=== PATIENT | male | born 1950 | race Caucasian/White ===

== ENCOUNTER 2018-07-07 21:10 | Observation (INO) | payer OTHER, MEDICARE ==
--- NOTE | 2018-07-07 22:13 | RAD REPORT ---
EXAM DESCRIPTION: CT - Head Brain Wo Cont - 07/07/2018 9:56 pm CLINICAL HISTORY: Syncope COMPARISON: 2007 TECHNIQUE: Computed axial tomography of the head was obtained. IV contrast was not requested. All CT scans are performed using dose optimization technique as appropriate and may include automated exposure control or mA/KV adjustment according to patient size. FINDINGS: An intracranial bleed is not seen . The ventricles are normal in caliber. No extra-axial fluid collection is noted. A vague 8 millimeter area of increased density within the r ight basal ganglia is unchanged. Fluid within the sinuses/ mastoids is not seen. IMPRESSION: Vague 8 millimeter area of increased density within the right basal ganglia unchanged f rom 2008. 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 No acute intracranial abnormality is seen. If patient's symptoms persist MRI of the brain would be r ecommended.
[2018-07-07 22:48] LABS: Absolute Monocytes 0.8 K/uL (0.1-1.3); Absolute Neutrophil 8.2 K/uL (1.8-8.0); Basophils % 0.3 % (0-1.3); Eosinophils % 1.3 % (0-4.4); Hematocrit 35.3 % (39.6-49.0); Lymphocytes % 9.3 % (15.3-44.8); MCH 33.6 pg (27.0-35.0); MCV 95.7 fL (80-100); MPV 8.5 fL (7.6-11.3); Monocytes % 8.1 % (3.3-12.3); RBC Red Blood Cell Count 3.69 M/uL (4.33-5.43)
[2018-07-07 23:09] LABS: ALT/SGPT 35 U/L (12-78); AST/SGOT 25 U/L (15-37); Albumin 3.3 g/dL (3.4-5.0); Alkaline Phosphatase 81 U/L (45-117); BUN Blood Urea Nitrogen 23 mg/dL (7-18); Bicarbonate 21 mmol/L (21-32); Bilirubin Direct 0.1 mg/dL (0-0.2); Bilirubin Total 0.5 mg/dL (0.2-1.0); Glucose Level 114 mg/dL (74-106); Magnesium 1.6 mg/dL (1.8-2.4); NT PRO-BNP 733 pg/mL (<125); Potassium 3.5 mmol/L (3.5-5.1); Protein, Total 6.3 g/dL (6.4-8.2); Sodium Level 128 mmol/L (136-145); Troponin (Emerg Dept Use Only) < 0.02 ng/mL (0.0-0.045)
[2018-07-07] MEDS ORDERED: NA CHLORIDE 0.9% 2,000 ML ONE (23:49)
[2018-07-08] MEDS ORDERED: FOLIC ACID 5 MG/ML VIAL ONE (00:06)
[2018-07-08] MEDS ORDERED: Magnesium Sulfate 2gm IVPB 2 G/50 ML BAG IV ONE (00:07)
--- NOTE | 2018-07-08 00:45 | EDPHYS ---
Physician Documentation [facility] Name: Diego Brizuela Age: 67 yrs Sex: Male : 1950 Arrival Date: 07/07/2018 Time: 21:14 Bed 18 Private MD: Mark Sharp T ED Physician Michael Cronin HPI: 07/07 21:45 This 67 yrs old Male presents to ER via EMS with complaints of dizziness. cp 21:45 The patient has experienced syncope, lost consciousness. Onset: The symptoms/episode cp began/occurred today. Duration: This was a single episode, that lasted an unknown period of time. Context: the episode(s) was witnessed, by a significant other, , occurred at home, occurred while the patient was standing, Just prior to the episode the patient experienced dizziness, lightheadedness, incontinence. Associated injury: The patient did not suffer any apparent associated injury. Associated signs and symptoms: Pertinent positives: general weakness, Pertinent negatives: abdominal pain, chest pain, headache, numbness, seizure. Current symptoms: general weakness. Historical: - Allergies: 21:23 Levaquin; jd3 - Home Meds: 21:23 Fish Oil Oral [Active]; Lipitor Oral [Active]; metoprolol tartrate 50 mg Oral tab 1 tab jd3 2 times per day [Active]; Protonix 20 mg Oral TbEC 1 tab once daily [Active]; Vitamin C Oral [Active]; Zyrtec Oral [Active]; - PMHx: 21:23 Bladder CA; Myocardial infarction; testicular CA; Hypertension; jd3 - PSHx: 21:23 Left Orichectomy; Cardiac Stent; Nephrectomy; jd3 - Immunization history:: Adult Immunizations up to date, Pneumococcal vaccine is not up to date, Flu vaccine is not up to date. It has been more than one year since last vaccine. - Social history:: Smoking status: Patient uses tobacco products, smokes one-half pack cigarettes per day. - Ebola Screening: : Patient negative for fever greater than or equal to 101.5 degrees Fahrenheit, and additional compatible Ebola Virus Disease symptoms. ROS: 21:50 Constitutional: Positive for chills, Negative for body aches, fever. cp 21:50 Eyes: Negative for injury, pain, redness, and discharge. cp 21:50 ENT: Negative for drainage from ear(s), ear pain, sore throat, difficulty swallowing, difficulty handling secretions. 21:50 Cardiovascular: Negative for chest pain, edema. 21:50 Respiratory: Negative for cough, shortness of breath, wheezing. 21:50 Abdomen/GI: Negative for abdominal pain, vomiting, diarrhea, constipation, black/tarry stool, rectal bleeding. 21:50 Back: Negative for pain at rest, pain with movement, radiated pain. 21:50 : Negative for urinary symptoms, flank pain, testicular pain 21:50 Skin: Negative for cellulitis, diaphoresis, rash. 21:50 Neuro: Positive for dizziness, syncope, general weakness, Negative for altered mental status, numbness, seizure activity. 21:50 All other systems are negative. Exam: 21:20 ECG was reviewed by the Attending Physician. cp 21:55 Constitutional: The patient appears in no acute distress, alert, awake, cp non-diaphoretic, non-toxic, well developed, well nourished. 21:55 Head/Face: Normocephalic, atraumatic. Eyes: Pupils equal round and reactive to light, cp extra-ocular motions intact. Lids and lashes normal. Conjunctiva and sclera are non-icteric and not injected. Cornea within normal limits. Periorbital areas with no swelling, redness, or edema. ENT: Nares patent. No nasal discharge, no septal abnormalities noted. Tympanic membranes are normal and external auditory canals are clear. Oropharynx with no redness, swelling, or masses, exudates, or evidence of obstruction, uvula midline. Mucous membranes moist. Neck: Trachea midline, no thyromegaly or masses palpated, and no cervical lymphadenopathy. Supple, full range of motion without nuchal rigidity, or vertebral point tenderness. No Meningismus. Chest/axilla: Normal chest wall appearance and motion. Nontender with no deformity. No lesions are appreciated. 21:55 Cardiovascular: Rate: normal, Rhythm: regular, Heart sounds: murmur, not appreciated, Edema: is not appreciated, JVD: is not appreciated. 21:55 Respiratory: the patient does not display signs of respiratory distress, Respirations: normal, no use of accessory muscles, no retractions, no splinting, no tachypnea, labored breathing, is not present, Breath sounds: are clear throughout, no decreased breath sounds, no stridor, no wheezing. 21:55 Abdomen/GI: Inspection: abdomen appears normal, Bowel sounds: active, all quadrants, Palpation: abdomen is soft and non-tender, in all quadrants, rebound tenderness, is not appreciated, voluntary guarding, is not appreciated, involuntary guarding, is not appreciated, Rectal exam: Stool: brown, guaiac negative. 21:55 Back: pain, is absent, ROM is normal. 21:55 Musculoskeletal/extremity: Exam is negative for decreased range of motion, deformity, injury. 21:55 Skin: cellulitis, is not appreciated, no rash present. 21:55 Neuro: Orientation: to person, place \T\ time. Mentation: is normal, Cerebellar function: is grossly normal, Motor: moves all fours, strength is normal, Sensation: no obvious gross deficits. Vital Signs: 21:23 BP 107 / 62; Pulse 77; Resp 22 S; Temp 97.8(O); Pulse Ox 99% on R/A; Weight 83.91 kg jd3 (R); Height 5 ft. 11 in. (180.34 cm) (R); Pain 0/10; 22:38 BP 117 / 72; Pulse 69; Resp 19 S; Pulse Ox 99% on R/A; Pain 0/10; jd3 07/08 00:10 BP 100 / 67; Pulse 94; Resp 20 S; Pulse Ox 98% on R/A; jd3 01:48 BP 116 / 66; Pulse 76; Resp 18 S; Pulse Ox 98% on R/A; jd3 07/07 21:23 Body Mass Index 25.80 (83.91 kg, 180.34 cm) jd3 MDM: 07/07 21:26 Patient medically screened. cp 22:00 Differential Diagnosis: cardiac arrhythmia, drug effect, GI bleed, idiopathic syncope, cp vasovagal episode. 07/08 00:00 Data reviewed: vital signs, nurses notes, lab test result(s), EKG, radiologic studies, cp CT scan, plain films. 00:00 Test interpretation: by ED physician or midlevel provider: ECG, plain radiologic cp studies. Counseling: I had a detailed discussion with the patient and/or guardian regarding: the historical points, exam findings, and any diagnostic results supporting the discharge/admit diagnosis, lab results, radiology results. Response to treatment: the patient's symptoms have mildly improved after treatment, and as a result, I will admit patient. 00:12 Physician consultation: Magan Wilson MD was called at 00:12, unable to leave message. 07/07 21:36 Order name: ETOH Level; Complete Time: 22:53 07/07 22:53 Interpretation: Abnormal: ETOH 42. 07/07 21:45 Order name: Basic Metabolic Panel; Complete Time: 23:22 07/07 23:22 Interpretation: Normal except: NA 128; CL 95; GLUC 114; BUN 23; CRE 2.00; GFR 34; CA cp 8.1. 07/07 21:45 Order name: CBC with Diff; Complete Time: 22:53 07/07 22:53 Interpretation: Normal except: RBC 3.69; HGB 12.4; HCT 35.3; LAURA% 81.0; LYM% 9.3; NEUT cp A 8.2. 07/07 21:45 Order name: LFT's; Complete Time: 23:22 07/07 21:45 Order name: Magnesium; Complete Time: 23:22 07/07 23:47 Interpretation: Abnormal: MG 1.6. 07/07 21:45 Order name: NT PRO-BNP; Complete Time: 23:22 07/07 21:45 Order name: PT-INR; Complete Time: 22:53 07/07 21:45 Order name: Troponin (emerg Dept Use Only); Complete Time: 23:22 07/08 00:48 Interpretation: TROPED < 0.02; Reviewed. 07/07 21:45 Order name: Blood Culture Adult (2) 07/07 21:45 Order name: Procalcitonin; Complete Time: 00:41 cp 07/07 21:45 Order name: Lactate; Complete Time: 23:22 07/07 23:23 Interpretation: Abnormal: LAC 2.3. 07/07 23:25 Order name: Urine Microscopic Only; Complete Time: 00:14 cp 07/08 00:34 Order name: Lactate; Complete Time: 00:14 jd3 07/08 01:14 Order name: Urine Dipstick--Ancillary (enter results) ds4 07/07 21:36 Order name: CT Head Brain wo Cont; Complete Time: 22:53 07/07 22:54 Interpretation: Report reviewed. 07/07 21:45 Order name: XRAY Chest (1 view); Complete Time: 00:14 07/09 00:14 Interpretation: Report review. 07/07 21:45 Order name: EKG; Complete Time: 21:46 07/07 21:45 Order name: Cardiac monitoring; Complete Time: 22:03 07/07 21:45 Order name: EKG - Nurse/Tech; Complete Time: 22:02 07/07 21:45 Order name: IV Saline Lock; Complete Time: 22:02 07/07 21:45 Order name: Labs collected and sent; Complete Time: 22:37 07/07 21:45 Order name: O2 Per Protocol; Complete Time: 22:02 07/07 21:45 Order name: O2 Sat Monitoring; Complete Time: 22:02 07/07 23:25 Order name: Urine Dipstick-Ancillary (obtain specimen); Complete Time: 01:13 07/08 01:47 Order name: Urine Dipstick-Ancillary; Complete Time: 00:14 EDMS EC/10 21:20 Rate is 84 beats/min. Rhythm is regular. ND interval is normal. QRS interval is normal. QT interval is prolonged at 414 msec. Interpreted by me. Reviewed by me. Administered Medications: 23:47 Drug: NS 0.9% 1000 ml Route: IV; Rate: 1 bolus; Site: right antecubital; [facility] 07/08 01:09 Follow up: Response: No adverse reaction; IV Status: Completed infusion; IV Intake: jd3 1000ml 07/07 23:47 Drug: NS 0.9% 1000 ml Route: IV; Rate: 100 ml/hr; Site: right antecubital; d3 07/08 02:09 Follow up: Response: No adverse reaction; IV Status: Completed infusion jd3 00:08 Drug: foLIC Acid 1 mg Route: IVPB; Site: right antecubital; jd3 01:10 Follow up: Response: No adverse reaction; IV Status: Completed infusion jd3 00:08 Drug: Magnesium Sulfate 2 grams Route: IVPB; Infused Over: 2 hrs; Site: right [facility] antecubital; :18 Follow up: Response: No adverse reaction; IV Status: Completed infusion jd3 Disposition: 07/08/18 00:44 Hospitalization ordered by Magan Wilson for Inpatient Admission. Preliminary diagnosis are Syncope and collapse, Hypotension, Hyponatremia, Hypomagnesemia, Unspecified kidney failure. - Bed requested for Telemetry/MedSurg (Inpatient). - Status is Inpatient Admission. jd3 - Condition is Stable. - Problem is new. - Symptoms have improved. UTI on Admission? No Addendum: 07/09/2018 09:51 Co-signature as Attending Physician, Michael Cronin MD I agree with the assessment and c shah plan of care. Signatures: Dispatcher [employer] EDMS Lisa Christian RN RN mw Anderson, Corey, MD MD cha Page, Corey PA PA Johnathan Mueller RN RN jd3 Corrections: (The following items were deleted from the chart) 07/07 23:22 23:22 Normal except: NA 128; CL 95; GLUC 114; BUN 23; CRE 2.00; GFR 34. cp cp 07/08 00:49 00:44 Hospitalization Ordered by Magan Wilson MD for Inpatient Admission. Preliminary cp diagnosis is Syncope and collapse; Hypotension. Bed requested for Telemetry/MedSurg (Inpatient). Status is Inpatient Admission. Condition is Stable. Problem is new. Symptoms have improved. UTI on Admission? No. cp 01: 00:49 07/08/2018 00:44 Hospitalization Ordered by Magan Wilson MD for Inpatient cp Admission. Preliminary diagnosis is Syncope and collapse; Hypotension; Hyponatremia; Hypomagnesemia. Bed requested for Telemetry/MedSurg (Inpatient). Status is Inpatient Admission. Condition is Stable. Problem is new. Symptoms have improved. UTI on Admission? No. cp 01:11 07/07 23:25 Kendall ordered. cp jd3 07/08 01:11 01:01 07/08/2018 00:44 Hospitalization Ordered by Magan Wilson MD for Inpatient mw Admission. Preliminary diagnosis is Syncope and collapse; Hypotension; Hyponatremia; Hypomagnesemia; Unspecified kidney failure. Bed requested for Telemetry/MedSurg (Inpatient). Status is Inpatient Admission. Condition is Stable. Problem is new. Symptoms have improved. UTI on Admission? No. cp 02:19 01:11 07/08/2018 00:44 Hospitalization Ordered by Magan Wilson MD for Inpatient jd3 Admission. Preliminary diagnosis is Syncope and collapse; Hypotension; Hyponatremia; Hypomagnesemia; Unspecified kidney failure. Bed requested for Telemetry/MedSurg (Inpatient). Status is Inpatient Admission. Condition is Stable. Problem is new. Symptoms have improved. UTI on Admission? No. mw 07/09 00:07/08 21:50 Constitutional: Negative for body aches, fever, cp cp 07/09 00:07/08 21:50 Eyes: Negative for injury, pain, redness, and discharge, cp cp 07/09 00:07/08 21:50 ENT: Negative for drainage from ear(s), ear pain, sore throat, difficulty cp swallowing, difficulty handling secretions, cp 07/09 00:07/08 21:50 Cardiovascular: Negative for chest pain, edema, palpitations, cp cp 07/09 00:07/08 21:50 Respiratory: Negative for cough, shortness of breath, wheezing, cp cp 07/09 00: 11 21:50 Abdomen/GI: Negative for abdominal pain, vomiting, diarrhea, constipation, cp black/tarry stool, rectal bleeding, cp 07/09 00:07/08 21:50 Back: Negative for pain at rest, pain with movement, radiated pain, cp cp 07/09 00: 11 21:50 : Negative for urinary symptoms, testicular pain cp cp 07/09 00:07/08 21:50 Skin: Negative for cellulitis, rash, cp cp 07/09 00:07/08 21:50 Neuro: Positive for dizziness, syncope, general weakness, Negative for cp seizure activity, cp 07/09 00: 11 21:50 All other systems are negative, cp cp
--- NOTE | 2018-07-08 00:45 | ER ---
Nurse's Notes [facility] Name: Diego Brizuela Age: 67 yrs Sex: Male : 1950 Arrival Date: 07/07/2018 Time: 21:14 Bed 18 Private MD: Mark Sharp T Diagnosis: Syncope and collapse;Hypotension;Hyponatremia;Hypomagnesemia;Unspecified kidney failure Presentation: 07/07 21:14 Presenting complaint: EMS states: "We were called out for a pt that was having a lot of jd3 dizziness and incontinence. we hooked him to the monitor and it showed he was bradycardic and hypotensive. we started and IV and he perked back up and was even able to walk to the stretcher.". Transition of care: patient was not received from another setting of care. Onset of symptoms was July 07, 2018. Risk Assessment: Do you want to hurt yourself or someone else? Patient reports no desire to harm self or others. Initial Sepsis Screen: Does the patient meet any 2 criteria? RR > 20 per min. No. Patient's initial sepsis screen is negative. Does the patient have a suspected source of infection? No. Patient's initial sepsis screen is negative. Care prior to arrival: Medication(s) given: Normal saline infusion, 500 mL, IV initiated. 18 GA, in the right antecubital area, Oxygen administered. via nasal cannula. 21:14 Method Of Arrival: EMS: [facility] jd3 21:14 Acuity: EDWARD 3 jd3 Historical: - Allergies: 21:23 Levaquin; jd3 - Home Meds: 21:23 Fish Oil Oral [Active]; Lipitor Oral [Active]; metoprolol tartrate 50 mg Oral tab 1 tab jd3 2 times per day [Active]; Protonix 20 mg Oral TbEC 1 tab once daily [Active]; Vitamin C Oral [Active]; Zyrtec Oral [Active]; - PMHx: 21:23 Bladder CA; Myocardial infarction; testicular CA; Hypertension; jd3 - PSHx: 21:23 Left Orichectomy; Cardiac Stent; Nephrectomy; jd3 - Immunization history:: Adult Immunizations up to date, Pneumococcal vaccine is not up to date, Flu vaccine is not up to date. It has been more than one year since last vaccine. - Social history:: Smoking status: Patient uses tobacco products, smokes one-half pack cigarettes per day. - Ebola Screening: : Patient negative for fever greater than or equal to 101.5 degrees Fahrenheit, and additional compatible Ebola Virus Disease symptoms. Screenin:24 Abuse screen: Denies threats or abuse. Nutritional screening: No deficits noted. jd3 Tuberculosis screening: No symptoms or risk factors identified. Fall Risk IV access (20 points). Ambulatory Aid- None/Bed Rest/Nurse Assist (0 pts). Gait- Weak (10 pts.). Mental Status- Oriented to own ability (0 pts). Total Hernandez Fall Scale indicates Low Risk Score (25-44 pts). Fall prevention measures have been instituted. Side Rails Up X 2 Placed close to Nursing Station Frequent Obs/Assesments occuring Family Present and informed to notify staff if they need to leave bedside. Assessment: 21:27 General: Appears uncomfortable, Behavior is cooperative, appropriate for age, anxious, jd3 Reports weakness, dizziness prior to arrival. pt reports feeling better on arrival. Pain: Denies pain. Neuro: Level of Consciousness is awake, alert, obeys commands, Oriented to person, place, time, situation, Appropriate for age. Cardiovascular: Heart tones S1 S2 present Capillary refill < 3 seconds Patient's skin is warm and dry. Rhythm is regular. Respiratory: Airway is patent Respiratory effort is even, unlabored, Respiratory pattern is regular, symmetrical, Breath sounds are clear bilaterally. Denies shortness of breath. GI: Abdomen is round non-distended, Bowel sounds present X 4 quads. Abd is soft and non tender X 4 quads. Reports diarrhea. : No signs and/or symptoms were reported regarding the genitourinary system. EENT: No signs and/or symptoms were reported regarding the EENT system. Derm: Skin is intact, Skin is dry, Skin is normal, Skin temperature is warm. Musculoskeletal: Circulation, motion, and sensation intact. Range of motion: intact in all extremities. 22:38 Reassessment: Patient appears in no apparent distress at this time. No changes from jd3 previously documented assessment. Patient and/or family updated on plan of care and expected duration. Pain level reassessed. Patient is alert, oriented x 3, equal unlabored respirations, skin warm/dry/pink. 23:50 Reassessment: Patient appears in no apparent distress at this time. No changes from jd3 previously documented assessment. Patient and/or family updated on plan of care and expected duration. Pain level reassessed. Patient is alert, oriented x 3, equal unlabored respirations, skin warm/dry/pink. 07/08 00:45 Reassessment: Patient appears in no apparent distress at this time. No changes from jd3 previously documented assessment. Patient and/or family updated on plan of care and expected duration. Pain level reassessed. Patient is alert, oriented x 3, equal unlabored respirations, skin warm/dry/pink. 01:48 Reassessment: Patient appears in no apparent distress at this time. No changes from jd3 previously documented assessment. Patient and/or family updated on plan of care and expected duration. Pain level reassessed. Patient is alert, oriented x 3, equal unlabored respirations, skin warm/dry/pink. Vital Signs: 07/07 21:23 BP 107 / 62; Pulse 77; Resp 22 S; Temp 97.8(O); Pulse Ox 99% on R/A; Weight 83.91 kg jd3 (R); Height 5 ft. 11 in. (180.34 cm) (R); Pain 0/10; 22:38 BP 117 / 72; Pulse 69; Resp 19 S; Pulse Ox 99% on R/A; Pain 0/10; jd3 07/08 00:10 BP 100 / 67; Pulse 94; Resp 20 S; Pulse Ox 98% on R/A; jd3 01:48 BP 116 / 66; Pulse 76; Resp 18 S; Pulse Ox 98% on R/A; jd3 07/07 21:23 Body Mass Index 25.80 (83.91 kg, 180.34 cm) [facility] ED Course: 07/07 21:14 Patient arrived in ED. jd3 21:18 Triage completed. jd3 21:24 Arm band placed on. EKG completed in triage. Results shown to MD. jd3 21:24 Patient has correct armband on for positive identification. Placed in gown. Bed in low jd3 position. Call light in reach. Side rails up X2. Adult w/ patient. 21:25 Michael Alejandre PA is PHCP. cp 21:26 Michael Cronin MD is Attending Physician. cp 21:36 Johnathan Hickman RN is Primary Nurse. jd3 21:[address] via stretcher. eh 21:56 CT Head Brain wo Cont In Process Unspecified. EDMS 21:56 CT completed. Patient tolerated procedure well. Patient moved back from CT. bq 21:59 ETOH Level Sent. ds4 22:03 Maintain EMS IV. Dressing intact. Good blood return noted. Site clean \\T\\ dry. Gauge \\T\\ jeanne 3 site: 18 G right AC. 22:07 XRAY Chest (1 view) In Process Unspecified. EDMS 22:07 X-ray completed. Patient tolerated procedure well. Patient moved to radiology via ka stretcher. Patient moved back from radiology. 22:26 Mark Sharp MD is Private Physician. cp 22:37 Lactate Sent. ds4 22:37 Procalcitonin Sent. ds4 22:37 Basic Metabolic Panel Sent. ds4 22:37 CBC with Diff Sent. ds4 22:37 LFT's Sent. ds4 22:37 Magnesium Sent. ds4 22:37 NT PRO-BNP Sent. ds4 22:37 PT-INR Sent. ds4 22:37 Troponin (emerg Dept Use Only) Sent. ds4 23:54 Blood Culture Adult (2) Sent. ds4 07/08 00:43 Magan Wilson MD is Hospitalizing Provider. cp 00:43 Lactate Sent. jd3 01:13 Urine Microscopic Only Sent. ds4 01:13 Lactate Sent. ds4 02:10 No provider procedures requiring assistance completed. Patient admitted, IV remains in jd3 place. Administered Medications: 07/07 23:47 Drug: NS 0.9% 1000 ml Route: IV; Rate: 1 bolus; Site: right antecubital; jd3 07/08 01:09 Follow up: Response: No adverse reaction; IV Status: Completed infusion; IV Intake: jd3 1000ml 07/07 23:47 Drug: NS 0.9% 1000 ml Route: IV; Rate: 100 ml/hr; Site: right antecubital; jd3 07/08 02:09 Follow up: Response: No adverse reaction; IV Status: Completed infusion jd3 00:08 Drug: foLIC Acid 1 mg Route: IVPB; Site: right antecubital; jd3 01:10 Follow up: Response: No adverse reaction; IV Status: Completed infusion jd3 00:08 Drug: Magnesium Sulfate 2 grams Route: IVPB; Infused Over: 2 hrs; Site: right jd3 antecubital; 01:18 Follow up: Response: No adverse reaction; IV Status: Completed infusion jd3 Intake: 01:09 IV: 1000ml; Total: 1000ml. jd3 Outcome: 00:44 Decision to Hospitalize by Provider. cp 02:10 Admitted to Med/surg accompanied by tech, via wheelchair, room 407, with chart, Report jd3 called to Ashlie BECKETT 02:10 Condition: stable 02:10 Instructed on the need for admit, Demonstrated understanding of instructions. 02:19 Patient left the ED. jd3 Signatures: Dispatcher [employer] EDMS Simon Kumar Betty bq Swanson, Donovan ds4 Michael Alejandre PA PA cp Aguilera, Katelyn ka Davies, Jonathon RN RN jd3 Corrections: (The following items were deleted from the chart) 07/07 22:41 22:38 BP 117 / 72; Pulse 69bpm; Resp 19bpm; Spontaneous; Pulse Ox 99% RA; jd3 jd3
[2018-07-08] MEDS ORDERED: MORPHINE 4 MG/ML SYR IV PRN (01:33)
[2018-07-08] MEDS ORDERED: ONDANSETRON 4 MG/2 ML VIAL IV PRN (01:33)
[2018-07-08] MEDS ORDERED: ACETAMINOPHEN 500 MG TAB PO PRN (01:33)
[2018-07-08 01:46] LABS: Urine Blood NEGATIVE (NEG); Urine Glucose NEGATIVE (NEG)
[2018-07-08 01:47] LABS: Urine Protein NEGATIVE (NEG)
[2018-07-08] MEDS ORDERED: NA CHLORIDE 0.9% 1,000 ML IV SCH (02:00)
[2018-07-08 02:03] LABS: Urine Bacteria <20 /HPF (NONE SEEN); Urine Culture Reflex Order NOT NEEDED; Urine RBC <5 /HPF (NONE SEEN)
[2018-07-08 03:14] VITALS: BMI 29.5
[2018-07-08] MEDS: NA CHLORIDE 0.9% 1,000 ML IV SCH ×3 (04:30→22:21)
--- NOTE | 2018-07-08 07:36 | P.HP ---
Certification for Inpatient Patient admitted to: Observation With expected LOS: <2 Midnights Practitioner: I am a practitioner with admitting privileges, knowledge of patient current condition, hospital course, and medical plan of care. Services: Services provided to patient in accordance with Admission requirements found in Title 42 Section 412.3 of the Code of Federal Regulations Patient History Date of Service: 07/08/18 Reason for admission: Near syncope; hyponatremia; dehydration; alcohol use History of Present Illness: Patient is a 67-year-old gentleman who came into the hospital after a near syncopal event. Patient was drinking this evening and he was going towards the restroom when he almost collapsed. His was there with him and she tried to assist him. He was not acting like himself and was really weak. He was not really able to stand so EMS was called out to the house. When they arrived he was still very lethargic and weak. He was brought into the emergency room for further evaluation were he was found to be dehydrated. His labs revealed hyponatremia along with acute kidney injury. Patient was brought into the hospital for further evaluation. Patient has a history of renal cell carcinoma and had a left-sided nephrectomy in 2000. Patient's cancer has been in remission since that time. He has been following up with Nephrology, Dr. Atkinson, and been monitoring his renal function closely. Patient was started on an antihypertensive with a diuretic a few weeks ago. Since that time he has developed the hyponatremia and has become dehydrated. We will need to adjust his medications prior to discharge. Allergies levofloxacin [From Levaquin] Allergy (Verified 08/30/17 23:04) Itching/Hives/Rash Home Medications: Cetirizine HCl [Zyrtec*] 5 mg PO DAILY 12/04/13 Vitamin B Complex [B Complex] 1 each PO DAILY 12/04/13 Atorvastatin Calcium [Lipitor] 80 mg PO BEDTIME #30 tablet 03/04/16 Pantoprazole [Protonix Tab*] 40 mg PO BID #60 tab 03/04/16 Metoprolol Tartrate [Lopressor*] 50 mg PO BID 08/26/17 Ascorbic Acid [Vitamin C] 500 mg PO DAILY 07/08/18 Aspirin [Children's Aspirin] 81 mg PO DAILY 07/08/18 Furosemide 20 mg PO DAILY 07/08/18 Sodium Chloride 1 gm PO BID 07/08/18 - Past Medical/Surgical History Has patient received pneumonia vaccine in the past: No Diabetic: No -: Hyperlipidemia -: Hypertension -: Coronary artery disease, Cardiology-Dr. Cabello -: History of [place] with stent placement-2011 -: History of testicular carcinoma with mets in 1992. -: History of kidney cancer requiring nephrectomy in 2000 -: History of bladder cancer in 2013, neurology-Dr. Pérez -: GERD -: Chronic kidney disease, Nephrology-Dr. Hernández -: Tobacco abuse -: Alcohol abuse -: Appendectomy -: Left-sided orchiectomy -: Abdominal lymph node resection -: Bilateral tendon repair -: left renal/adrenal gland removed -: Left kidney removed Psychosocial/ Personal History: of 32 years. Has 3 children. 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 moist/pink, EOMI, Sclerae nonicteric Neck: Supple, 2+ carotid pulse no bruit, No LAD, Without JVD or thyroid abnormality Respiratory: Clear to auscultation bilaterally, Normal air movement Cardiovascular: Regular rate/rhythm, Normal S1 S2, No murmurs Gastrointestinal: Normal bowel sounds, Soft and benign, Non-distended, No tenderness Musculoskeletal: No clubbing, No swelling, No tenderness Integumentary: No rashes Neurological: Normal gait, Normal speech, Normal strength at 5/5 x4 extr, Normal tone, Sensation intact, Normal affect Lymphatics: No axilla or inguinal lymphadenopathy - Studies Laboratory Data (last 24 hrs) 07/07/18 22:25: PT 11.8, INR 1.00 07/07/18 22:25: WBC 10.2, Hgb 12.4 L, Hct 35.3 L, Plt Count 202 11/10/18 22:25: Sodium 128 L, Potassium 3.5, BUN 23 H, Creatinine 2.00 H, Glucose 114 H, Magnesium 1.6 L, Total Bilirubin 0.5, AST 25, ALT 35, Alkaline Phosphatase 81 Assessment & Plan - Problems (Diagnosis) (1) Dehydration Current Visit: Yes Status: Acute (2) Acute kidney failure Current Visit: Yes Status: Acute (3) Hyponatremia Current Visit: Yes Status: Acute (4) Near syncope Current Visit: Yes Status: Acute - Plan Plan: 1. Continue with IV hydration 2. Hold antihypertensives with HCTZ 3. Neurochecks 4. Ditch Cleaner regarding refraining from alcohol use 5. Monitor electrolytes and recheck in the morning 6. GI and DVT prophylaxis Discharge Plan: Home Plan to discharge in: 24 Hours - Advance Directives Does patient have a Living Will: No Does patient have a Durable POA for Healthcare: No - Code Status/Comfort Care Code Status Assessed: Yes Code Status: Full Code Critical Care: No Time Spent Managing PTS Care (In Minutes): 50
[2018-07-08] MEDS ORDERED: COLCHICINE 0.6 MG TAB PO PRN (08:00)
[2018-07-08] MEDS ORDERED: PNEUMOCOCCAL VACCINE 0.5 ML IMVAC ONE (08:00)
[2018-07-08] MEDS ORDERED: INFLUENZA VACCINE (for 3y+) 0.5 ML DOSE IMVAC ONE (08:00)
--- NOTE | 2018-07-08 08:26 | RAD REPORT ---
EXAM DESCRIPTION: RAD - Chest Single View - 07/07/2018 10:10 pm CLINICAL HISTORY: Syncope, bradycardia COMPARISON: June 06 TECHNIQUE: AP portable chest image was obtained 2152 hours . FINDINGS: No superimposed failure, infiltrate or mass on baseline COPD. Heart and vasculature are no rmal. No measurable pleural effusion and no pneumothorax. No acute bony abnormality seen. No acute ao rtic findings suspected. IMPRESSION: No acute cardiopulmonary process. COPD is similar to comparison.
[2018-07-08] MEDS ORDERED: predniSONE 20 MG TAB PO SCH (09:00)
[2018-07-08] MEDS ORDERED: HOME MED 1 EA UNK (Budesonide/Formoterol Fumarate [Symbicort 160-4.5 Mcg Inhaler] 2 PUFF) IH SCH (09:00)
[2018-07-08] MEDS ORDERED: PANTOPRAZOLE 40MG TABLET PO SCH (09:00)
[2018-07-08] MEDS ORDERED: ALLOPURINOL 300 MG TAB PO SCH (09:00)
[2018-07-08] MEDS: ASPIRIN 81 MG CHEWABLE TABLET PO SCH (10:29)
[2018-07-08] MEDS: ASCORBIC ACID 500 MG TABLET PO SCH (10:30)
[2018-07-08] MEDS: CETIRIZINE HCL 5 MG TABLET PO SCH (10:30)
[2018-07-08] MEDS: SODIUM CHLORIDE 1 GM TAB PO SCH ×2 (10:30→20:11)
[2018-07-08] MEDS: MULTIVITAMIN TAB PO SCH (10:32)
[2018-07-08] MEDS: METOPROLOL TAR 50 MG TAB PO SCH ×2 (10:33→20:11)
[2018-07-08] MEDS: VITAMIN B COMPLEX 1 CAP PO SCH (10:53)
--- NOTE | 2018-07-08 13:56 | P.PN ---
Subjective Date of Service: 07/08/18 (Hospitalist note) Chief Complaint: Near syncope; hyponatremia; dehydration; alcohol use Patient is doing well denies any dizziness he became dizzy while he was having a shower and partial loss of consciousness with bowel incontinence denies any fever chills chest pain palpitations no prior history of syncopal attacks apparently is blood pressure was low no chest pain Review of Systems Unremarkable Physical Examination - Vital Signs Temperature: 98.9 F Blood Pressure: 133/66 Pulse: 86 Respirations: 18 Pulse Ox (%): 99 - Physical Exam General: Alert, Oriented x3 Neck: Supple Respiratory: Clear to auscultation bilaterally, Normal air movement Cardiovascular: No edema, Regular rate/rhythm Capillary refill: >2 Seconds Gastrointestinal: Normal bowel sounds, Soft and benign Musculoskeletal: No clubbing, No swelling Integumentary: No rashes, No breakdown Neurological: Normal speech, Normal strength at 5/5 x4 extr - Studies Laboratory Data (last 24 hrs) 07/07/18 22:25: PT 11.8, INR 1.00 07/07/18 22:25: WBC 10.2, Hgb 12.4 L, Hct 35.3 L, Plt Count 202 07/07/18 22:25: Sodium 128 L, Potassium 3.5, BUN 23 H, Creatinine 2.00 H, Glucose 114 H, Magnesium 1.6 L, Total Bilirubin 0.5, AST 25, ALT 35, Alkaline Phosphatase 81 Assessment & Plan - Problems (Diagnosis) (1) Syncope Current Visit: Yes Status: Acute Plan: Patient is 67 years of age admitted with a syncopal attack patient is the patient's blood pressure was a little low patient is hypernatremic mild renal insufficiency very mildly anemic CT scan no change chest x-rays clear probably volume depleted no recent echocardiogram I have ordered a 2D echo IV fluid boluses Dc Lasix telemetry patient is an active smoker history of COPD oxygenation is normal continue with bronchodilators possible discharge tomorrow ovoid Lasix Qualifiers: Syncope type: unspecified Qualified Code(s): R55 - Syncope and collapse Plan to discharge in: 24 Hours
[2018-07-08] MEDS: PANTOPRAZOLE 40MG TABLET PO SCH (17:21)
[2018-07-08] MEDS: ATORVASTATIN 80 MG TAB PO SCH (20:11)
--- NOTE | 2018-07-09 07:06 | EKG ---
Test Date: 2018-07-07 Test Time: 21:12:40 Senior Analysis Specialist: HEATHER MEASUREMENT RESULTS: Intervals: Rate: 84 MN: 180 QRSD: 88 QT: 414 QTc: 489 [place]: P: 77 MN: 180 QRS: 73 T: 81 INTERPRETIVE STATEMENTS: Normal sinus rhythm Prolonged QT Abnormal ECG Compared to ECG 08/26/2017 11:43:56 Prolonged QT interval now present Electronically Signed On 07-09-18 07:03:39 POLLUTION CONTROL TECHNICIAN by Delvis Canas
[2018-07-09 07:28] LABS: Potassium 3.8 mmol/L (3.5-5.1)
[2018-07-09] MEDS: MULTIVITAMIN TAB PO SCH (08:24)
[2018-07-09] MEDS: METOPROLOL TAR 50 MG TAB PO SCH ×2 (08:24→20:29)
[2018-07-09] MEDS: VITAMIN B COMPLEX 1 CAP PO SCH (08:25)
[2018-07-09] MEDS: SODIUM CHLORIDE 1 GM TAB PO SCH ×2 (08:25→20:28)
[2018-07-09] MEDS: CETIRIZINE HCL 5 MG TABLET PO SCH (08:25)
[2018-07-09] MEDS: ASCORBIC ACID 500 MG TABLET PO SCH (08:25)
[2018-07-09] MEDS: PANTOPRAZOLE 40MG TABLET PO SCH ×2 (08:25→16:01)
[2018-07-09] MEDS: ASPIRIN 81 MG CHEWABLE TABLET PO SCH (08:25)
[2018-07-09] MEDS: NA CHLORIDE 0.9% 1,000 ML IV SCH ×2 (08:26→17:11)
--- NOTE | 2018-07-09 14:20 | P.PN ---
Subjective Date of Service: 07/09/18 Chief Complaint: Near syncope; hyponatremia; dehydration; alcohol use Patient seen and examined at bedside with RN chart reviewed. Case discussed with cardiology. Currently pending echocardiogram. Patient denies having a syncopal episode at this time Review of Systems 10-point ROS is otherwise unremarkable Physical Examination - Vital Signs Temperature: 97.7 F Blood Pressure: 142/75 Pulse: 60 Respirations: 18 Pulse Ox (%): 98 - Physical Exam General: Alert, In no apparent distress HEENT: Atraumatic, PERRLA, EOMI Neck: Supple, JVD not distended Respiratory: Clear to auscultation bilaterally, Normal air movement Cardiovascular: Regular rate/rhythm, Normal S1 S2 Gastrointestinal: Normal bowel sounds, No tenderness Musculoskeletal: No tenderness Integumentary: No rashes Neurological: Normal speech, Normal tone, Normal affect Lymphatics: No axilla or inguinal lymphadenopathy - Studies Medications List Reviewed: Yes Assessment And Plan - Current Problems (Diagnosis) (1) Acute kidney failure Onset Date: 07/09/18 Current Visit: Yes Status: Acute Plan: Acute kidney injury most likely secondary to hypovolemia secondary to dehydration -IV fluids at this time -avoid nephrotoxic agents -creatinine today 1.50. At baseline less than 1 Qualifiers: Acute renal failure type: unspecified Qualified Code(s): N17.9 - Acute kidney failure, unspecified (2) Dehydration Onset Date: 07/09/18 Current Visit: Yes Status: Chronic Plan: Dehydration most likely secondary to poor p.o. intake -marked improvement today. (3) Near syncope Onset Date: 07/09/18 Current Visit: Yes Status: Acute Plan: Resolved now. Most likely secondary to dehydration (4) Gastro-esophageal reflux disease without esophagitis Onset Date: 08/30/17 Current Visit: No Status: Chronic (5) Gouty arthropathy Onset Date: 08/31/17 Current Visit: No Status: Chronic (6) Hyperlipidemia Onset Date: 08/30/17 Current Visit: No Status: Acute Qualifiers: Hyperlipidemia type: pure hypercholesterolemia Qualified Code(s): E78.00 - Pure hypercholesterolemia, unspecified; E78.0 - Pure hypercholesterolemia (7) Nicotine dependence, cigarettes, uncomplicated Onset Date: 08/30/17 Current Visit: No Status: Chronic (8) Hypertension Onset Date: 08/30/17 Current Visit: No Status: Chronic Qualifiers: Hypertension type: essential hypertension Discharge Plan: Home Plan to discharge in: 48 Hours - Code Status/Comfort Care Code Status Assessed: Yes Critical Care: No
--- NOTE | 2018-07-09 16:06 | ECHO ---
HEIGHT: 5 ft 11 in WEIGHT: 211 lb 11.2 oz DATE OF STUDY: 07/09/[address]: David Marx MD 2-DIMENSIONAL: YES M.MODE: YES DOPPLER: YES COLOR FLOW: YES TDS: YES PORTABLE: NO DEFINITY: NO BUBBLE STUDY: NO DIAGNOSIS: SYNCOPAL ATTACK CARDIAC HISTORY: CATHERIZATION: YES SURGERY: NO PROSTHETIC VALVE: NO PACEMAKER: NO MEASUREMENTS (cm) DIASTOLIC (NORMALS) SYSTOLIC (NORMALS) IVSd 1.1 (0.6-1.2) LA Diam 4.4 (1.9-4.0) LVEF 58% LVIDd 4.8 (3.5-5.7) LVIDs 3.3 (2.0-3.5) %FS 30% LVPWd 1.2 (0.6-1.2) Ao Diam (2.0-3.7) 2 DIMENSIONAL ASSESSMENT: RIGHT ATRIUM: NORMAL LEFT ATRIUM: DILATED RIGHT VENTRICLE: NORMAL LEFT VENTRICLE: NORMAL TRICUSPID VALVE: NORMAL MITRAL VALVE: NORMAL PULMONIC VALVE: NORMAL AORTIC VALVE: NORMAL PERICARDIAL EFFUSION: NONE AORTIC ROOT: NORMAL LEFT VENTRICULAR WALL MOTION: NORMAL. DOPPLER/COLOR FLOW: NORMAL. COMMENTS: NORMAL LEFT VENTRICULAR EJECTION FRACTION. DILATED LEFT ATRIUM. OTHERWISE NORMAL 2D ECHO WITH DOPPLER TECHNOLOGIST: LAZARO ROLDAN
[2018-07-09] MEDS: ATORVASTATIN 80 MG TAB PO SCH (20:29)
[2018-07-10] MEDS: VITAMIN B COMPLEX 1 CAP PO SCH (08:03)
[2018-07-10] MEDS: ASCORBIC ACID 500 MG TABLET PO SCH (08:03)
[2018-07-10] MEDS: CETIRIZINE HCL 5 MG TABLET PO SCH (08:03)
[2018-07-10] MEDS: ASPIRIN 81 MG CHEWABLE TABLET PO SCH (08:04)
[2018-07-10] MEDS: SODIUM CHLORIDE 1 GM TAB PO SCH (08:04)
[2018-07-10] MEDS: PANTOPRAZOLE 40MG TABLET PO SCH (08:04)
[2018-07-10] MEDS: MULTIVITAMIN TAB PO SCH (08:04)
[2018-07-10] MEDS: METOPROLOL TAR 50 MG TAB PO SCH (08:04)
[2018-07-10 12:09] VITALS: BP 135/66; TEMP 97.4
[2018-07-10 12:22] VITALS: O2SAT 97
--- NOTE | 2018-07-10 15:24 | P.DS ---
Admission Date: 07/08/18 Discharge Date: 07/10/18 Disposition: ROUTINE DISCHARGE Discharge Condition: GOOD Reason for Admission: Near syncope; hyponatremia; dehydration; alcohol use - Problems (1) Acute kidney failure Onset Date: 07/09/18 Status: Acute Qualifiers: Acute renal failure type: unspecified Qualified Code(s): N17.9 - Acute kidney failure, unspecified (2) Dehydration Onset Date: 07/09/18 Status: Chronic (3) Near syncope Onset Date: 07/09/18 Status: Acute (4) Gastro-esophageal reflux disease without esophagitis Onset Date: 08/30/17 Status: Chronic (5) Gouty arthropathy Onset Date: 08/31/17 Status: Chronic (6) Hyperlipidemia Onset Date: 08/30/17 Status: Acute Qualifiers: Hyperlipidemia type: pure hypercholesterolemia Qualified Code(s): E78.00 - Pure hypercholesterolemia, unspecified; E78.0 - Pure hypercholesterolemia (7) Nicotine dependence, cigarettes, uncomplicated Onset Date: 08/30/17 Status: Chronic (8) Hypertension Onset Date: 08/30/17 Status: Chronic Qualifiers: Hypertension type: essential hypertension Brief History of Present Illness: See HPI Hospital Course: Overall during the hospital stay patient remained stable Patient was initially admitted to the hospital for syncopal workup. Patient had a syncopal episode at home after he was found to be hypotensive and dehydrated. Patient stated that he had had similar episodes in the past when he would get dehydrated. Patient does have a history of alcohol abuse and stated that he had couple of beers extra more than needed and was treating likes fluid. Patient was admitted to the hospital was given IV fluids here in the hospital and has syncopal episode did resolve. Echocardiogram done here in the hospital to rule out organic causes which was within normal limits. Patient has electrolyte imbalance did resolve here is well. Patient was no longer hypotensive and had no syncopal episode here and thus was discharged home under stable condition. Vital Signs/Physical Exam: Temp Pulse Resp BP Pulse Ox 97.4 F 62 18 135/66 97 07/10/18 12:00 07/10/18 12:00 07/10/18 12:00 07/10/18 12:00 07/10/18 12:00 General: Alert, In no apparent distress HEENT: Atraumatic, PERRLA, EOMI Neck: Supple, JVD not distended Respiratory: Clear to auscultation bilaterally, Normal air movement Cardiovascular: Regular rate/rhythm, Normal S1 S2 Gastrointestinal: Normal bowel sounds, No tenderness Musculoskeletal: No tenderness Integumentary: No rashes Neurological: Normal speech, Normal tone, Normal affect Lymphatics: No axilla or inguinal lymphadenopathy Laboratory Data at Discharge: WBC 10.2 K/uL (4.3-10.9) 07/07/18 22:25 Hgb 12.4 g/dL (13.6-17.9) L 07/07/18 22:25 Hct 35.3 % (39.6-49.0) L 07/07/18 22:25 Plt Count 202 K/uL (152-406) 07/07/18 22:25 PT 11.8 SECONDS (9.5-12.5) 07/07/18 22:25 INR 1.00 07/07/18 22:25 Sodium 140 mmol/L (136-145) 07/09/18 06:38 Potassium 3.8 mmol/L (3.5-5.1) 07/09/18 06:38 BUN 18 mg/dL (7-18) 07/09/18 06:38 Creatinine 1.50 mg/dL (0.55-1.3) H 07/09/18 06:38 Glucose 112 mg/dL (74-106) H 07/09/18 06:38 Magnesium 1.6 mg/dL (1.8-2.4) L 07/07/18 22:25 Total Bilirubin 0.5 mg/dL (0.2-1.0) 07/07/18 22:25 AST 25 U/L (15-37) 07/07/18 22:25 ALT 35 U/L (12-78) 07/07/18 22:25 Alkaline Phosphatase 81 U/L (45-117) 07/07/18 22:25 Home Medications: Cetirizine HCl [Zyrtec*] 5 mg PO DAILY 12/04/13 Vitamin B Complex [B Complex] 1 each PO DAILY 12/04/13 Atorvastatin Calcium [Lipitor] 80 mg PO BEDTIME #30 tablet 03/04/16 Pantoprazole [Protonix Tab*] 40 mg PO BID #60 tab 03/04/16 Metoprolol Tartrate [Lopressor*] 50 mg PO BID 08/26/17 Ascorbic Acid [Vitamin C*] 500 mg PO DAILY 07/08/18 Aspirin [Children's Aspirin] 81 mg PO DAILY 07/08/18 Furosemide 20 mg PO DAILY 07/08/18 Sodium Chloride 1 gm PO BID 07/08/18 Diet: Regular Activity: Ad zoe Followup: Delvis Canas MD [ACTIVE - CAN ADMIT] -
== END 2018-07-10 13:24 | disposition home or self-care (01) ==
LOC: ER 21:10 → ERHOLD 07-08 01:09 → INTOOBSV 07-08 01:09 → 4TH 07-08 02:12
PROVIDERS: ADMIT Hospitalist; ATTEND Hospitalist
DX: R55 Syncope and collapse (principal); E86.0 Dehydration; N17.9 Acute kidney failure, unspecified; E87.1 Hypo-osmolality and hyponatremia; I25.10 Atherosclerotic heart disease of native coronary artery without angina pectoris; M10.9 Gout, unspecified; E78.5 Hyperlipidemia, unspecified; Z85.528 Personal history of other malignant neoplasm of kidney; Z90.5 Acquired absence of kidney; Z95.5 Presence of coronary angioplasty implant and graft; Z85.47 Personal history of malignant neoplasm of testis; Z85.51 Personal history of malignant neoplasm of bladder; F17.210 Nicotine dependence, cigarettes, uncomplicated; Z23 Encounter for immunization
CPT/HCPCS: 36415 ×2; 70450; 71045; 80048 ×2; 80076; 80320; 83605 ×2; 83735; 83880; 84145; 84484; 85025; 85610; 87040 ×2; 93005; 93306; 96361; 96365; 96368; 99285; G0008; G0378 ×2; J3475; J7030 ×6; Q2035; 81003; 81015; J7512

== ENCOUNTER 2018-10-17 11:58 | Emergency (ER) | payer OTHER, MEDICARE ==
[2018-10-17] MEDS ORDERED: NA CHLORIDE 0.9% 1,000 ML ONE (12:20)
[2018-10-17 12:32] LABS: Absolute Lymphocytes (CBC) 0.8 K/uL (0.7-4.9); Absolute Monocytes 1.1 K/uL (0.1-1.3); Absolute Neutrophil 9.7 K/uL (1.8-8.0); Basophils % 0.4 % (0-1.3); Eosinophils % 0.1 % (0-4.4); Lymphocytes % 7.2 % (15.3-44.8); RBC Red Blood Cell Count 4.09 M/uL (4.33-5.43)
--- NOTE | 2018-10-17 12:39 | RAD REPORT ---
EXAM DESCRIPTION: RAD - Chest Single View - 10/17/2018 12:34 pm CLINICAL HISTORY: fatigue Chest pain. COMPARISON: Chest Single View dated 07/07/2018; Chest Pa And Lat (2 Views) dated 06/06/2018; Chest S heather View dated 08/26/2017; Chest Pa And Lat (2 Views) dated 08/25/2017 FINDINGS: Portable technique limits examination quality. The lungs are diffusely emphysematous but clear. The heart is normal in size. No displaced fractures. IMPRESSION: COPD.
[2018-10-17 12:44] LABS: ALT/SGPT 26 U/L (12-78); AST/SGOT 15 U/L (15-37); Albumin 3.8 g/dL (3.4-5.0); Alkaline Phosphatase 79 U/L (45-117); BUN Blood Urea Nitrogen 17 mg/dL (7-18); Bicarbonate 25 mmol/L (21-32); Bilirubin Total 0.5 mg/dL (0.2-1.0); Glucose Level 136 mg/dL (74-106); Potassium 3.9 mmol/L (3.5-5.1); Protein, Total 6.9 g/dL (6.4-8.2); Sodium Level 126 mmol/L (136-145); Troponin (Emerg Dept Use Only) < 0.02 ng/mL (0.0-0.045)
--- NOTE | 2018-10-17 15:47 | ER ---
Nurse's Notes [facility] Name: Diego Brizuela Age: 67 yrs Sex: Male : 1950 Arrival Date: 10/17/2018 Time: 11:58 Bed 7 Private MD: Diagnosis: Dehydration;Fatigue Presentation: 10/17 11:58 Presenting complaint: EMS states: was called for a patient lying on the floor at home, hj pt assisted him on from a standing position to the floor, and couldn't get up by himself, EMS assisted pt to stretcher, BGL- 170; neg orthostatic, BP- 150/80; HR- 60; denies fall; complaints of L wrist pain; 20g R AC;. Transition of care: patient was not received from another setting of care. Onset of symptoms was October 17, 2018. Risk Assessment: Do you want to hurt yourself or someone else? Patient reports no desire to harm self or others. Initial Sepsis Screen: Does the patient meet any 2 criteria? No. Patient's initial sepsis screen is negative. Does the patient have a suspected source of infection? No. Patient's initial sepsis screen is negative. Care prior to arrival: None. 11:58 Method Of Arrival: EMS: [facility] 11:58 Acuity: EDWARD 3 hj Triage Assessment: 12:04 General: Appears in no apparent distress. uncomfortable, Behavior is calm, cooperative, hj appropriate for age. Pain: Complains of pain in L wrist. Historical: - Allergies: 12:03 Levaquin; hj - Home Meds: 12:04 Fish Oil Oral [Active]; Lipitor Oral [Active]; metoprolol tartrate 50 mg Oral tab 1 tab hj 2 times per day [Active]; Protonix 20 mg Oral TbEC 1 tab once daily [Active]; Vitamin C Oral [Active]; Zyrtec Oral [Active]; - PMHx: 12:03 Bladder CA; Hypertension; Myocardial infarction; testicular CA; hj - PSHx: 12:03 Left Orichectomy; Cardiac Stent; Nephrectomy; hj - Immunization history:: Adult Immunizations up to date. - Social history:: Smoking status: Patient/guardian denies using tobacco, Patient/guardian denies using alcohol. - Ebola Screening: : Patient negative for fever greater than or equal to 101.5 degrees Fahrenheit, and additional compatible Ebola Virus Disease symptoms Patient denies exposure to infectious person Patient denies travel to an Ebola-affected area in the 21 days before illness onset. Screenin:03 Abuse screen: Denies threats or abuse. Denies injuries from another. Nutritional hj screening: No deficits noted. Tuberculosis screening: No symptoms or risk factors identified. Fall Risk Fall in past 12 months (25 points). Secondary diagnosis (15 points). Assessment: 12:03 General: Appears in no apparent distress. uncomfortable, Behavior is calm, cooperative, hj appropriate for age. Pain: Complains of pain in L wrist. Neuro: Level of Consciousness is awake, alert, obeys commands, Oriented to person, place, time, situation, Appropriate for age. Cardiovascular: Capillary refill < 3 seconds Patient's skin is warm and dry. Respiratory: Airway is patent Respiratory effort is even, unlabored, Respiratory pattern is regular, symmetrical. GI: No signs and/or symptoms were reported involving the gastrointestinal system. : No signs and/or symptoms were reported regarding the genitourinary system. EENT: No signs and/or symptoms were reported regarding the EENT system. Derm: No signs and/or symptoms reported regarding the dermatologic system. Musculoskeletal: No signs and/or symptoms reported regarding the musculoskeletal system. 13:20 Reassessment: Patient is alert, oriented x 3, equal unlabored respirations, skin pc1 warm/dry/pink. Patient denies pain at this time. Patient states symptoms have not improved. 14:10 Reassessment: Patient is alert, oriented x 3, equal unlabored respirations, skin pc1 warm/dry/pink. Patient denies pain at this time. General: Reports Swelling to the left wrist, denies pain. Applied ice pack. 14:45 Reassessment: Patient and/or family updated on plan of care and expected duration. Pain hj level reassessed. Patient is alert, oriented x 3, equal unlabored respirations, skin warm/dry/pink. awaiting POC;. 15:29 Reassessment: able to ambulate 50 steps from room to hallway without dizziness, or SOB;.hj 15:30 Reassessment: Patient is alert, oriented x 3, equal unlabored respirations, skin pc1 warm/dry/pink. Patient denies pain at this time. Vital Signs: 12:05 BP 140 / 87; Pulse 66; Resp 18; Temp 97.9(O); Pulse Ox 100% on R/A; Weight 90.72 kg; hj Height 5 ft. 11 in. (180.34 cm); Pain 0/10; 12:59 BP 166 / 71; Pulse 70; Resp 18; Pulse Ox 99% on R/A; hj 13:21 BP 167 / 86; Pulse 71; Resp 15; Pulse Ox 100% ; pc1 14:24 BP 150 / 59; Pulse 72; Resp 16; Pulse Ox 100% on R/A; pc1 15:28 BP 117 / 3; Pulse 72; Resp 18; Pulse Ox 99% on R/A; hj 12:05 Body Mass Index 27.89 (90.72 kg, 180.34 cm) hj ED Course: 11:58 Patient arrived in ED. hj 12:01 Triage completed. hj 12:03 Dario Singh NP is PHCP. pm1 12:03 Winston Kramer MD is Attending Physician. pm1 12:03 Maintain EMS IV. Dressing intact. Good blood return noted. Site clean \T\ dry. Gauge \T\ hj site: 20 g R AC. 12:04 Arm band placed on right wrist. hj 12:04 Patient has correct armband on for positive identification. Placed in gown. Bed in low hj position. Call light in reach. Side rails up X2. Adult w/ patient. 12:07 Rafael Turner, RN is Primary Nurse. hj 12:18 CMP Sent. hj 12:18 CBC with Diff Sent. hj 12:36 CXR XRAY In Process Unspecified. EDMS 16:14 No provider procedures requiring assistance completed. IV discontinued, intact, hj bleeding controlled, No redness/swelling at site. Pressure dressing applied. Administered Medications: 12:18 Drug: NS 0.9% 1000 ml Route: IV; Rate: 1 bolus; Site: right antecubital; hj 13:43 Follow up: IV Status: Completed infusion; IV Intake: 1000ml pc1 Intake: 13:43 IV: 1000ml; Total: 1000ml. pc1 Outcome: 15:46 Discharge ordered by . ps1 16:09 Discharged to home ambulatory. pc1 16:15 Attestation : i agree with assessment and docs of SN Don[facility]. hj 16:15 Condition: stable 16:15 Discharge instructions given to patient, Instructed on discharge instructions, follow up and referral plans. Demonstrated understanding of instructions, follow-up care, Prescriptions given X 16:16 Patient left the ED. grupo Signatures: Dispatcher [employer] EDMS Rafael Turner RN RN Dario Riggs, ASSOCIATE [employer] ASSOCIATE [employer] pm1 Winston Kramer MD MD ps1 Dario May pc1
--- NOTE | 2018-10-17 15:48 | EDPHYS ---
Physician Documentation [facility] Name: Diego Brizuela Age: 67 yrs Sex: Male : 1950 Arrival Date: 10/17/2018 Time: 11:58 Bed 7 Private MD: ED Physician Winston Kramer HPI: 10/17 12:04 This 67 yrs old Male presents to ER via EMS with complaints of General ps1 Weakness. 12:04 patient has fatigue that started this morning. Was constipated and took laxitives. Had ps1 multiple BM's and laid on ground, not prolonged. Called EMS because he felt weak. Hx of CAD, AMI in 2010. No CP. . Historical: - Allergies: 12:03 Levaquin; hj - Home Meds: 12:04 Fish Oil Oral [Active]; Lipitor Oral [Active]; metoprolol tartrate 50 mg Oral tab 1 tab hj 2 times per day [Active]; Protonix 20 mg Oral TbEC 1 tab once daily [Active]; Vitamin C Oral [Active]; Zyrtec Oral [Active]; - PMHx: 12:03 Bladder CA; Hypertension; Myocardial infarction; testicular CA; hj - PSHx: 12:03 Left Orichectomy; Cardiac Stent; Nephrectomy; hj - Immunization history:: Adult Immunizations up to date. - Social history:: Smoking status: Patient/guardian denies using tobacco, Patient/guardian denies using alcohol. - Ebola Screening: : Patient negative for fever greater than or equal to 101.5 degrees Fahrenheit, and additional compatible Ebola Virus Disease symptoms Patient denies exposure to infectious person Patient denies travel to an Ebola-affected area in the 21 days before illness onset. ROS: 12:04 Eyes: Negative for injury, pain, redness, and discharge, ENT: Negative for injury, ps1 pain, and discharge, Cardiovascular: Negative for chest pain, palpitations, and edema, Respiratory: Negative for shortness of breath, cough, wheezing, and pleuritic chest pain, Abdomen/GI: Negative for abdominal pain, nausea, vomiting, diarrhea, and constipation, MS/Extremity: Negative for injury and deformity, Skin: Negative for injury, rash, and discoloration, Neuro: Negative for headache, weakness, numbness, tingling, and seizure, Psych: Negative for depression, anxiety, suicide ideation, homicidal ideation, and hallucinations. 12:04 Constitutional: Positive for fatigue, malaise. Exam: 12:06 Constitutional: This is a well developed, well nourished patient who is awake, alert, ps1 and in no acute distress. Head/Face: Normocephalic, atraumatic. Eyes: Pupils equal round and reactive to light, extra-ocular motions intact. Lids and lashes normal. Conjunctiva and sclera are non-icteric and not injected. Chest/axilla: Normal chest wall appearance and motion. Nontender with no deformity. No lesions are appreciated. Cardiovascular: Regular rate and rhythm. No gallops, murmurs, or rubs. Normal PMI, no JVD. No pulse deficits. Respiratory: Lungs have equal breath sounds bilaterally, clear to auscultation and percussion. No rales, rhonchi or wheezes noted. No increased work of breathing, no retractions or nasal flaring. Abdomen/GI: Soft, non-tender, with normal bowel sounds. No distension or tympany. No guarding or rebound. No evidence of tenderness throughout. Skin: Warm, dry with normal turgor. Normal color with no rashes, no lesions, and no evidence of cellulitis. MS/ Extremity: Pulses equal, no cyanosis. Neurovascular intact. Full, normal range of motion. Neuro: Awake and alert, GCS 15, oriented to person, place, time, and situation. Cranial nerves II-XII grossly intact. Sensory grossly intact. Psych: Awake, alert, with orientation to person, place and time. Behavior, mood, and affect are within normal limits. Vital Signs: 12:05 BP 140 / 87; Pulse 66; Resp 18; Temp 97.9(O); Pulse Ox 100% on R/A; Weight 90.72 kg; hj Height 5 ft. 11 in. (180.34 cm); Pain 0/10; 12:59 BP 166 / 71; Pulse 70; Resp 18; Pulse Ox 99% on R/A; hj 13:21 BP 167 / 86; Pulse 71; Resp 15; Pulse Ox 100% ; pc1 14:24 BP 150 / 59; Pulse 72; Resp 16; Pulse Ox 100% on R/A; pc1 15:28 BP 117 / 3; Pulse 72; Resp 18; Pulse Ox 99% on R/A; hj 12:05 Body Mass Index 27.89 (90.72 kg, 180.34 cm) hj MDM: 12:29 Patient medically screened. ps1 15:45 Data reviewed: vital signs, nurses notes, lab test result(s), radiologic studies, CT ps1 scan, and as a result, I will discharge patient. Counseling: I had a detailed discussion with the patient and/or guardian regarding: the historical points, exam findings, and any diagnostic results supporting the discharge/admit diagnosis, lab results, radiology results, the need for outpatient follow up, to return to the emergency department if symptoms worsen or persist or if there are any questions or concerns that arise at home. 10/17 12:07 Order name: Flu; Complete Time: 12:55 ps1 10/17 12:07 Order name: CBC with Diff; Complete Time: 12:37 ps1 10/17 12:07 Order name: CMP; Complete Time: 12:55 ps1 10/17 12:07 Order name: CXR XRAY; Complete Time: 12:41 ps1 10/17 12:07 Order name: Troponin (emerg Dept Use Only); Complete Time: 12:55 ps1 10/17 14:15 Order name: Urine Dipstick--Ancillary (enter results) bd 10/17 12:07 Order name: Urine Dipstick-Ancillary (obtain specimen); Complete Time: 13:52 ps1 Administered Medications: 12:18 Drug: NS 0.9% 1000 ml Route: IV; Rate: 1 bolus; Site: right antecubital; 13:43 Follow up: IV Status: Completed infusion; IV Intake: 1000ml pc1 Disposition: 10/17/18 15:46 Discharged to Home. Impression: Dehydration, Fatigue. - Condition is Stable. - Discharge Instructions: Dehydration, Adult. - Medication Reconciliation Form, Thank You Letter, Antibiotic Education, Prescription Opioid Use form. - Follow up: Private Physician; When: 48 Hours; Reason: Further diagnostic work-up, Recheck today's complaints, Continuance of care, Re-evaluation by your physician. Follow up: Emergency Department; When: As needed; Reason: Fever > 102 F, Worsening of condition. - Problem is an ongoing problem. - Symptoms have improved. Signatures: Dispatcher [employer] EDMS Rafael Turner RN RN Winston Kramer MD MD ps1 Dario May pc1 Corrections: (The following items were deleted from the chart) 16:16 15:46 10/17/2018 15:46 Discharged to Home. Impression: Dehydration; Fatigue. Condition hj is Stable. Forms are Medication Reconciliation Form, Thank You Letter, Antibiotic Education, Prescription Opioid Use. Follow up: Private Physician; When: 48 Hours; Reason: Further diagnostic work-up, Recheck today's complaints, Continuance of care, Re-evaluation by your physician. Follow up: Emergency Department; When: As needed; Reason: Fever > 102 F, Worsening of condition. Problem is an ongoing problem. Symptoms have improved. ps1
[2018-10-17 16:50] VITALS: TEMP 97.9
[2018-10-17 16:55] VITALS: BP 117/3; O2SAT 99
[2018-10-17 18:28] LABS: Urine Blood NEGATIVE (NEG); Urine Glucose NEGATIVE (NEG); Urine Protein 1+ (NEG)
== END 2018-10-17 16:16 | disposition home or self-care (01) ==
LOC: ER 11:58
DX: R53.83 Other fatigue (principal); E86.0 Dehydration; C67.9 Malignant neoplasm of bladder, unspecified; C62.90 Malignant neoplasm of unspecified testis, unspecified whether descended or undescended; I10 Essential (primary) hypertension; I25.2 Old myocardial infarction; Z88.1 Allergy status to other antibiotic agents
CPT/HCPCS: 36415; 71045; 80053; 81003; 84484; 85025; 87804 ×2; 96360; 99284; J7030

== ENCOUNTER 2018-12-18 12:34 | Inpatient (IN) | payer OTHER, MEDICARE ==
[2018-12-18] MEDS ORDERED: SODIUM CHLORIDE 1 GM TAB PO SCH ×2 (14:00→21:00)
[2018-12-18] MEDS ORDERED: NA CHLORIDE 0.9% 1,000 ML IV SCH (14:00)
[2018-12-18 14:36] LABS: Absolute Lymphocytes (CBC) 1.6 K/uL (0.7-4.9); Absolute Neutrophil 4.7 K/uL (1.8-8.0); Basophils % 0.7 % (0-1.3); Hematocrit 35.7 % (39.6-49.0); Lymphocytes % 21.6 % (15.3-44.8); MPV 7.5 fL (7.6-11.3); Monocytes % 13.6 % (3.3-12.3); RBC Red Blood Cell Count 3.89 M/uL (4.33-5.43)
[2018-12-18 14:47] LABS: Albumin 3.6 g/dL (3.4-5.0); Bilirubin Total 0.4 mg/dL (0.2-1.0); Magnesium 1.8 mg/dL (1.8-2.4); Phosphorus 3.2 mg/dL (2.5-4.9); Potassium 3.6 mmol/L (3.5-5.1); Protein, Total 7.2 g/dL (6.4-8.2)
[2018-12-18 16:19] LABS: CKMB Creatine Kinase MB < 1.0 ng/mL (0.3-3.6); Creatine Phosphokinase 46 U/L (39-308)
--- NOTE | 2018-12-18 16:55 | P.HP ---
Certification for Inpatient Patient admitted to: Inpatient With expected LOS: >2 Midnights Practitioner: I am a practitioner with admitting privileges, knowledge of patient current condition, hospital course, and medical plan of care. Services: Services provided to patient in accordance with Admission requirements found in Title 42 Section 412.3 of the Code of Federal Regulations Patient History Date of Service: 12/18/18 Reason for admission: Hyponatremia History of Present Illness: This is a 68-year-old male with multiple medical problems including nephrectomy in 2000 for cancer directly admitted from Dr. Hernández's office. Per patient, he was there in his kidney doctor's office for a follow up. Labs that were drawn on the showed a sodium level of 123. He does state that he has been getting weak and has had 1 falls. He is not hit his head. When he does feels this weakness, he states that he just lays there and does not move. He feels better and then) on doing about his business. Last episode of this was on Monday morning. He also states that he has been intermittently losing control of his bowel. Last episode of this was about a month ago. He went to the ER x2 and they were unable to tell him what was going on. He did have an appointment scheduled with neurology on the of this month. At the time of my exam, he was hemodynamically stable, alert oriented x3 and in no acute distress. Allergies levofloxacin [From Levaquin] Allergy (Verified 08/30/17 23:04) Itching/Hives/Rash Home Medications: Cetirizine HCl [Zyrtec*] 5 mg PO DAILY 12/04/13 Vitamin B Complex [B Complex] 1 each PO DAILY 12/04/13 Atorvastatin Calcium [Lipitor] 80 mg PO BEDTIME #30 tablet 03/04/16 Pantoprazole [Protonix Tab*] 40 mg PO BID #60 tab 03/04/16 Metoprolol Tartrate [Lopressor*] 50 mg PO BID 08/26/17 Ascorbic Acid [Vitamin C*] 500 mg PO DAILY 07/08/18 Aspirin [Children's Aspirin] 81 mg PO DAILY 07/08/18 Sodium Chloride 1 gm PO DAILY 07/08/18 Amlodipine [Norvasc] 5 mg PO DAILY 12/18/18 Cholecalciferol (Vitamin D3) [Vitamin D3] 5,000 unit PO DAILY 12/18/18 Fludrocortisone [Florinef] 0.1 mg PO BEDTIME 12/18/18 Ipratropium/Albuterol Sulfate [Iprat-Albut 0.5-3(2.5) mg/3 ml] 3 ml IH DAILY - Past Medical/Surgical History Has patient received pneumonia vaccine in the past: Yes Diabetic: No -: Hyperlipidemia -: Hypertension -: Coronary artery disease, Cardiology-Dr. Cabello -: History of MT with stent placement-2011 -: History of testicular carcinoma with mets in 1992. -: History of kidney cancer requiring nephrectomy in 2000 -: History of bladder cancer in 2013, urology-Dr. Pérez -: GERD -: Chronic kidney disease, Nephrology-Dr. Hernández -: Tobacco abuse -: Alcohol abuse -: Appendectomy-1976 -: Left-sided orchiectomy-1992 -: Abdominal lymph node resection -: Bilateral tendon repair -: left renal/adrenal gland removed -: Left kidney removed Psychosocial/ Personal History: of 32 years. Has 3 children. 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 moist/pink, EOMI, Sclerae nonicteric Neck: Supple, 2+ carotid pulse no bruit, No LAD, Without JVD or thyroid abnormality Respiratory: Clear to auscultation bilaterally, Normal air movement Cardiovascular: Regular rate/rhythm, Normal S1 S2 Gastrointestinal: Normal bowel sounds, No tenderness Musculoskeletal: No tenderness Integumentary: No rashes Neurological: Normal gait, Normal speech, Normal strength at 5/5 x4 extr, Normal tone, Normal affect Lymphatics: No axilla or inguinal lymphadenopathy - Studies Laboratory Data (last 24 hrs) 12/18/18 14:13: Sodium Cancelled, Potassium Cancelled, BUN Cancelled, Creatinine Cancelled, Glucose Cancelled, Troponin I < 0.02 12/18/18 14:13: Sodium 127 L, Potassium 3.6, BUN 17, Creatinine 1.61 H, Glucose 108 H, Phosphorus 3.2, Magnesium 1.8, Total Bilirubin 0.4, AST 18, ALT 26, Alkaline Phosphatase 95 12/18/18 14:13: WBC 7.6, Hgb 12.7 L, Hct 35.7 L, Plt Count 268 Assessment and Plan - Problems (Diagnosis) (1) Generalized weakness Current Visit: Yes Status: Acute (2) Hyponatremia Onset Date: 08/30/17 Current Visit: No Status: Acute (3) Chronic kidney disease Onset Date: 08/31/17 Current Visit: No Status: Chronic Qualifiers: (4) Coronary artery disease Onset Date: 08/30/17 Current Visit: No Status: Chronic Qualifiers: (5) Gastro-esophageal reflux disease without esophagitis Onset Date: 08/30/17 Current Visit: No Status: Chronic (6) Hypertension Onset Date: 08/30/17 Current Visit: No Status: Chronic Qualifiers: Hypertension type: essential hypertension (7) Nicotine dependence, cigarettes, uncomplicated Onset Date: 08/30/17 Current Visit: No Status: Chronic - Plan Patient to the floor with tele. Continue to monitor electrolytes. We will want to avoid over-correction. Restart home salt tablets Labs ordered for today. Repeat labs in the morning. Nephrology consulted Resume home medications as tolerated. Will get physical therapy to evaluate. Will also discuss with Dr. medina to see if he will be able to see patient in the hospital as patient did have an appointment scheduled on the of this month. DVT prophylaxis: Eliquis GI prophylaxis: Protonix Diet: Regular Disposition: Pending improvement in hyponatremia - Advance Directives Does patient have a Living Will: No Does patient have a Durable POA for Healthcare: No Time Spent Managing Pts Care (In Minutes): 55
[2018-12-18 17:03] LABS: Urine Appearance CLEAR; Urine Bilirubin NEGATIVE (NEG); Urine Blood NEGATIVE (NEG); Urine Color YELLOW; Urine Glucose NEGATIVE (NEG); Urine Protein 2+ (NEG); Urine Specific Gravity 1.015 (1.005-1.030); Urine Urobilinogen 0.2 mg/dL (0.2-1.0)
[2018-12-18 17:04] LABS: Urine Microscopic Reflex ORDER UMIC
[2018-12-18] MEDS: PANTOPRAZOLE 40MG TABLET PO SCH (17:22)
[2018-12-18 17:23] LABS: Urine Bacteria <20 /HPF (NONE SEEN); Urine Culture Reflex Order NOT NEEDED; Urine RBC NONE SEEN /HPF (NONE SEEN)
[2018-12-18] MEDS: ATORVASTATIN 80 MG TAB PO SCH (20:44)
[2018-12-18] MEDS: METOPROLOL TAR 50 MG TAB PO SCH (20:44)
[2018-12-19] MEDS: PANTOPRAZOLE 40MG TABLET PO SCH ×2 (07:30→16:48)
[2018-12-19] MEDS ORDERED: COSYNTROPIN 0.25 MG VIAL IV SCH (08:00)
--- NOTE | 2018-12-19 08:01 | EKG ---
Test Date: 2018-12-18 Test Time: 14:35:32 Cotton Expert: SHANNAN MEASUREMENT RESULTS: Intervals: Rate: 70 MI: 160 QRSD: 96 QT: 428 QTc: 462 [place]: P: 76 MI: 160 QRS: 70 T: 74 INTERPRETIVE STATEMENTS: Normal sinus rhythm Normal ECG Compared to ECG 07/07/2018 21:12:40 Prolonged QT interval no longer present Electronically Signed On 12-19-18 08:00:32 CDT by Nic Cabello
[2018-12-19] MEDS: FLUDROCORTISONE 0.1 MG TAB PO SCH (08:11)
[2018-12-19] MEDS: ASPIRIN 81 MG CHEWABLE TABLET PO SCH (08:11)
[2018-12-19] MEDS: AMLODIPINE 5 MG TAB PO SCH (08:12)
[2018-12-19] MEDS: METOPROLOL TAR 50 MG TAB PO SCH ×2 (08:12→21:58)
[2018-12-19 08:24] LABS: Urine Appearance CLEAR; Urine Bilirubin NEGATIVE (NEG); Urine Blood NEGATIVE (NEG); Urine Color YELLOW; Urine Glucose NEGATIVE (NEG); Urine Protein 2+ (NEG); Urine Urobilinogen 0.2 mg/dL (0.2-1.0); Urine pH 6.5 (5.0-7.0)
[2018-12-19 08:30] LABS: Urine Microscopic Reflex ORDER UMIC
[2018-12-19 08:37] LABS: Absolute Lymphocytes (CBC) 1.4 K/uL (0.7-4.9); Absolute Monocytes 0.9 K/uL (0.1-1.3); Absolute Neutrophil 4.5 K/uL (1.8-8.0); Basophils % 0.9 % (0-1.3); Hematocrit 35.5 % (39.6-49.0); Lymphocytes % 19.9 % (15.3-44.8); MPV 7.4 fL (7.6-11.3); Monocytes % 12.9 % (3.3-12.3); RBC Red Blood Cell Count 3.84 M/uL (4.33-5.43)
[2018-12-19 08:49] LABS: Albumin 3.8 g/dL (3.4-5.0); Bilirubin Total 0.7 mg/dL (0.2-1.0); Phosphorus 3.3 mg/dL (2.5-4.9); Protein, Total 6.7 g/dL (6.4-8.2); Thyroid Stimulating Hormone 0.836 uIU/mL (0.360-3.740)
[2018-12-19 08:53] LABS: Urine Amorphous Sediment 1+ /HPF (NONE SEEN); Urine Bacteria NONE SEEN /HPF (NONE SEEN); Urine RBC NONE SEEN /HPF (NONE SEEN)
[2018-12-19 08:54] LABS: Urine Culture Reflex Order NOT NEEDED
[2018-12-19] MEDS ORDERED: FUROSEMIDE 20 MG TABLET PO SCH (09:00)
--- NOTE | 2018-12-19 11:08 | P.PN ---
Subjective Date of Service: 12/19/18 Chief Complaint: Hyponatremia Subjective: No C/O voiced, Improving Patient seen and examined at bedside. Family at bedside. Chart reviewed and case discussed with nursing staff and Dr. Hernández No acute events noted overnight. Patient lying in bed, no acute distress. No concerns or complaints. Denies any symptoms or complaints. Encouraged patient to ambulate Review of Systems 10-point ROS is otherwise unremarkable Physical Examination - Vital Signs Temperature: 97.3 F Blood Pressure: 132/79 Pulse: 87 Respirations: 19 Pulse Ox (%): 97 - Physical Exam General: Alert, In no apparent distress, Oriented x3 HEENT: Atraumatic, PERRLA, EOMI Neck: Supple, JVD not distended Respiratory: Clear to auscultation bilaterally, Normal air movement Cardiovascular: Regular rate/rhythm, Normal S1 S2 Gastrointestinal: Normal bowel sounds, No tenderness Musculoskeletal: No tenderness Integumentary: No rashes Neurological: Normal speech, Normal tone, Normal affect Lymphatics: No axilla or inguinal lymphadenopathy - Studies Laboratory Data (last 24 hrs) 12/19/18 08:27: WBC 7.0, Hgb 12.4 L, Hct 35.5 L, Plt Count 256 12/19/18 07:55: Sodium 129 L, Potassium 4.0, BUN 17, Creatinine 1.61 H, Glucose 104, Phosphorus 3.3, Total Bilirubin 0.7, AST 19, ALT 23, Alkaline Phosphatase 99 12/18/18 14:13: Sodium Cancelled, Potassium Cancelled, BUN Cancelled, Creatinine Cancelled, Glucose Cancelled, Troponin I < 0.02 12/18/18 14:13: Sodium 127 L, Potassium 3.6, BUN 17, Creatinine 1.61 H, Glucose 108 H, Phosphorus 3.2, Magnesium 1.8, Total Bilirubin 0.4, AST 18, ALT 26, Alkaline Phosphatase 95 12/18/18 14:13: WBC 7.6, Hgb 12.7 L, Hct 35.7 L, Plt Count 268 Assessment And Plan - Current Problems (Diagnosis) (1) Generalized weakness Current Visit: Yes Status: Acute (2) Hyponatremia Onset Date: 08/30/17 Current Visit: No Status: Acute (3) Chronic kidney disease Onset Date: 08/31/17 Current Visit: No Status: Chronic Qualifiers: (4) Coronary artery disease Onset Date: 08/30/17 Current Visit: No Status: Chronic Qualifiers: (5) Gastro-esophageal reflux disease without esophagitis Onset Date: 08/30/17 Current Visit: No Status: Chronic (6) Hypertension Onset Date: 08/30/17 Current Visit: No Status: Chronic Qualifiers: Hypertension type: essential hypertension (7) Nicotine dependence, cigarettes, uncomplicated Onset Date: 08/30/17 Current Visit: No Status: Chronic - Plan Continue to monitor electrolytes. We will want to avoid over-correction. MRI of the abdomen ordered as patient with history of renal cell carcinoma. Evaluate for neoplastic process as a cause for hyponatremia. Restart home salt tablets Repeat labs in the morning. Renal testing pending. Nephrology consulted. Recommendations appreciated Resume home medications as tolerated. Will get physical therapy to evaluate. Will also discuss with Dr. Montanez to see if he will be able to see patient in the hospital as patient did have an appointment scheduled on the of this month. DVT prophylaxis: Eliquis GI prophylaxis: Protonix Diet: Regular Disposition: Pending improvement in hyponatremia and further testing.
[2018-12-19 13:53] VITALS: BMI 25.7
--- NOTE | 2018-12-19 15:22 | RAD REPORT ---
EXAM DESCRIPTION: MRI - Pituitary W Wo Cont - 12/19/2018 2:20 pm CLINICAL HISTORY: Pituitary adenoma. Renal cell carcinoma COMPARISON: None. TECHNIQUE: High-resolution magnetic resonance imaging of pituitary gland obtained. 20 cc MultiHance administered intravenously. Additional axial, sagittal coronal T1 weighted images of entire brain obt ained FINDINGS: The pituitary gland is normal size and signal. Pituitary demonstrates normal enhancement. Infundibulum and optic chiasm are unremarkable. 11 millimeter ring-enhancing left occipital lesion. 16 millimeter ring-enhancing left frontal lobe le tania. 7 millimeter ring-enhancing lesion periventricular white matter of the left lateral ventricle. 6 millimeter enhancing lesion in right frontal lobe. 9 mm enhancing lesion septum pellucidum. 20 mill imeter enhancing lesion posterior left frontal lobe . Mild edema surrounds several of the lesions IMPRESSION: Unremarkable MRI pituitary gland Multiple brain enhancing lesions consistent with metastases
--- NOTE | 2018-12-19 15:59 | CON ---
Date of Consultation: 12/19/2018 Additional Consulting Physician: Dr. Rivera. Reason For Consultation: Elevated BUN and creatinine, hyponatremia. History Of Present Illness: This is a pleasant 68-year-old gentleman, well known to me from the [facility] with the significant past medical history of chronic kidney disease secondary to hypertension, cor onary artery disease, benign prostate hypertrophy, renal cell CA, status post left nephrectomy back i n 1999. Follow up with MD Cronin, chronic kidney disease secondary to renal mass loss, baseline cr eatinine 1.4-1.6, hyponatremia with hyperkalemia, recurrent fail as an outpatient on the salt tablet and on the Florinef. The patient came to the office yesterday, according to him, had recurrent fall with wobbly gait and the dizziness. Lab in the office back in December 13, sodium has been dropped to 123. His potassium after he started on the Florinef completely normalized. Also, his workup show t hat his cortisol level was low down to the 7. For that reason, the patient was admitted to the [facility] with the help of Dr. Rivera. Over the night, the patient was started on the Florinef, on the salt tablet. His sodium slightly started coming up 127 and today 129. The patient undergo today cortiso l stimulation test. The patient, according to him, he feel slightly better. No nausea or vomiting. The dizziness has been slightly subsided. Past Medical History: Include: 1.Hypertension. 2.Hyperlipidemia. 3.Renal CA, status post left nephrectomy. 4.Chronic kidney disease, solitary kidney, baseline creatinine 1.4. 5.Renal cyst. 6.Prostate hypertrophy. Allergies: NO KNOWN DRUG ALLERGIES. Past Surgical History: Include: 1.I and D. 2.Nephrectomy. Family History: Positive for hypertension. Review of Systems: Head and neck: Has dizziness. GI: No nausea. No vomiting. : No polyuria, no dysuria, no hematuria. No foamy urine. TANK STAVE ASSEMBLER: Not applicable. Respiratory: No shortness of breath. Cardiovascular: Has recurrent fall. Neuro: Has recurrent fall and dizziness. Musculoskeletal: Generalized weakness. Endocrine: No polydipsia. Skin: No rash. Home Medications: Include: 1.Florinef 0.1 daily. 2.B-complex. 3.Breathing treatment. 4.Cholecalciferol. 5.Cetirizine. 6.Atorvastatin. 7.Amlodipine 5 mg. Current Medications: In the hospital include amlodipine, aspirin, Florinef, Lasix at 20 and the salt tablet. Physical Examination: General: When I saw the patient, the patient sitting in the bed, comfortable, not on any distress. Vital Signs: Blood pressure 132/79, pulse of 87. Chest: Clear to auscultation. Heart: S1, S2. Systolic murmur. Abdomen: Soft and nontender. Extremities: No edema. Neurologic: Alert, nonfocal. Laboratory Data: WBC 7, H and H 12.4/35.5, platelets 256. Sodium 129, potassium 4, bicarb 26, BUN 1 7, creatinine 1.6, GFR of 43, calcium 9.1, phosphorus 3.3, albumin 3.8. Urinalysis, specific gravity of 1.010, urine osmolality at 347, urine sodium 46, urine potassium at 21. The patient undergo alanis isol stimulation test today, the result showing base of 25 and rise to 50 after 90 minutes, which is a good response. Assessment And Plan: 1.Hyponatremia secondary to syndrome of inappropriate antidiuretic hormone secretion, possible secon leopoldo to paraneoplastic with symptomatic. The patient will need to be started on tolvaptan. Unfortun ately, we are going to need to get the insurance approval for it. We will follow up with the social economist. 2.Hyperkalemia. Continue on the Florinef. 3.Recurrent falls, possible secondary to hyponatremia. We will get Neurology eval. 4.Given the recurrent hyponatremia which can be paraneoplastic, I am going to go ahead and get scan MRI for the abdomen to rule out any recurrence. BERTIN/LOULOU Voice ID: [id number] Report ID: [id number]
[2018-12-19 16:07] LABS: Urine Appearance CLEAR; Urine Bilirubin NEGATIVE (NEG); Urine Blood NEGATIVE (NEG); Urine Color YELLOW; Urine Glucose NEGATIVE (NEG); Urine Protein 2+ (NEG); Urine Specific Gravity 1.015 (1.005-1.030); Urine Urobilinogen 0.2 mg/dL (0.2-1.0)
[2018-12-19] MEDS: TOLVAPTAN 15 MG TABLET PO SCH (16:48)
[2018-12-19 16:49] LABS: Urine Bacteria <20 /HPF (NONE SEEN); Urine Microscopic Reflex ORDER UMIC; Urine RBC <5 /HPF (NONE SEEN)
[2018-12-19 16:50] LABS: Urine Culture Reflex Order NOT NEEDED
[2018-12-19 17:25] LABS: Potassium 4.2 mmol/L (3.5-5.1)
[2018-12-19] MEDS: ATORVASTATIN 80 MG TAB PO SCH (21:00)
[2018-12-19] MEDS: levETIRAcetam 500 MG TAB PO SCH (21:58)
--- NOTE | 2018-12-19 23:42 | CON ---
Reason For Consultation: Consultation called because of repeated syncopal episodes. History Of Present Illness: Mr. Brizuela is a 68-year-old patient with renal cell carcinoma by history, who has had nephrectomy in 2000 and who comes in with repeated episodes of syncope and near syncope. He said his first episode occurred in June 2018 and developed over a 10-minute period. He suddenly was unable to stand, passed out, and he said actually he had gone to the bathroom, got up, walked out, and then it happened. He did lose stool control. Since that time, he has had 3 more episodes most recent prompting admission. These events are similar in nature and developed over a 5- to 10-minute period, and he falls when he may lose stool control. He said after the last event, he was told he had very low blood pressures with systolic in the 60s, diastolic lower than that. He reports not drinking water and may drink about 36 ounces of coffee along with 48 ounces of beer and not much water during the day, also may drink tea. During multiple events, he did receive IV fluids. Following his admission earlier today directly from his renal physician's office, he did have a brain MRI in the pituitary region which was prompted because of hyponatremia looking for a cause there and potentially something related to adrenal insufficiency. The brain MRI identified multiple ring-enhancing lesions in the left occipital region, left frontal lobe, in the periventricular white matter of the left lateral ventricle, in the right frontal lobe, in the septum pellucidum, and posterior left frontal lobe. These were all consistent with metastases. The patient's electrocardiogram done yesterday showed normal sinus rhythm, was a normal study. His hemoglobin and hematocrit were 12.4 and 35.5 with normal white count of 7.0, and admission chemistries showed a sodium of 123, and he has chronic renal insufficiency with creatinine ranging 1.5 to 1.6. Liver function studies were normal, and urinalysis showed low random urine sodium of 18 and increased urine protein. Since admission, he has had no additional episodes of syncope. The patient denies having as tonic or clonic activity of the arms or legs, but he says after each event, he takes several hours to return to baseline. Past Medical History: Dyslipidemia, hypertension, coronary artery disease, myocardial infarction, testicular carcinoma, kidney cancer, bladder cancer, chronic renal insufficiency, gastroesophageal reflux disease. Social History: Tobacco and alcohol, caffeine abuse. Surgical History: Cardiac stents multiple done, left-sided orchiectomy, abdominal lymph node dissection, bilateral tendon repair, left renal and adrenal gland resection. Family History: Stroke in mother, cancer in father and hypertension as well and brother with lung cancer. Social History: Smokes on a regular basis, a pack daily. Alcohol on a regular basis. Caffeine is indicated on a regular basis. Review of Systems: Other than indicated, he denies recent fevers or chills, nausea or vomiting, myalgias, arthralgias, rash, weight change, or psychiatric issues. Medications: Zyrtec 5 mg daily, B complex 1 daily, Lipitor 80 mg daily, Protonix 40 mg daily, Lopressor 50 mg twice daily, vitamin C 500 mg daily, aspirin 81 mg daily. He is on sodium chloride tablets 1 daily, Norvasc 5 mg daily, vitamin D3 5000 units daily, Florinef 0.1 mg at bedtime, and now ipratropium nebulizer daily. Physical Examination: Vital Signs: Blood pressure 105/68, pulse 76, respiratory rate 18, temperature 97.4, oxygen saturation 99%, weight 184 pounds, height 5 feet 11 inches. General: Mr. Brizuela is resting comfortably in bed despite the findings of his MRI, appears to be in no acute distress. HEENT: He is normocephalic, atraumatic. Sclerae are anicteric. Oropharynx is moist. Neck: Supple. Chest: Clear. Heart: Regular. Extremities: Show no edema or cyanosis. Neurological: He is alert and oriented to situation, place, and person. He follows commands appropriately. His cranial nerves 2 through 12 show no focal deficits, and his motor examination in upper and lower extremities 5/5 proximally and distally. Sensory exam intact to light touch and temperature in the arms and legs. Coordination intact in the upper and lower extremities. Reflexes are symmetric. Gait, good stance and stride. Assessment: Mr. 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 His events should include differential diagnosis of complex partial seizures given the likelihood that the enhancing lesions may be irritating the cortex and producing focal symptoms that may spread generalized. Plan: 1. Routine EEG. 2. Suggest Keppra 250 mg twice daily. 3. The patient's cancer may be addressed by his primary team with the help of Oncology and Radiation Oncology as well. THAD Voice ID: [id number] Report ID: [id number] MTDD
[2018-12-20] MEDS: levETIRAcetam 500 MG TAB PO SCH ×2 (08:46→21:30)
[2018-12-20] MEDS: ASPIRIN 81 MG CHEWABLE TABLET PO SCH (08:46)
[2018-12-20] MEDS: PANTOPRAZOLE 40MG TABLET PO SCH ×2 (08:46→16:30)
[2018-12-20] MEDS: METOPROLOL TAR 50 MG TAB PO SCH ×2 (08:51→21:30)
[2018-12-20] MEDS: AMLODIPINE 5 MG TAB PO SCH (08:51)
[2018-12-20] MEDS: FLUDROCORTISONE 0.1 MG TAB PO SCH (09:02)
[2018-12-20 09:58] LABS: Albumin 3.8 g/dL (3.4-5.0); Bilirubin Total 0.5 mg/dL (0.2-1.0); Phosphorus 3.3 mg/dL (2.5-4.9); Potassium 4.2 mmol/L (3.5-5.1); Protein, Total 7.4 g/dL (6.4-8.2)
--- NOTE | 2018-12-20 10:33 | RAD REPORT ---
EXAM DESCRIPTION: MRI - Abdomen WWo Cont - 12/20/2018 8:36 am CLINICAL HISTORY: Renal cell carcinoma COMPARISON: 2017 MRI TECHNIQUE: Axial and coronal magnetic resonance imaging of the abdomen obtained. 20 cc MultiHance ad ministered intravenously FINDINGS: A 3 centimeter mass extends off of the lateral aspect of the mid to lower pole of the righ t kidney. It has enlarged from the prior exam in which it measured 2.5 centimeters. It demonstrates e nhancement. It has heterogeneous signal. Several simple right renal cysts are present. Left nephrectomy Gallstone without gallbladder wall thickening 15 millimeter mass within the pancreatic head is suspected. IMPRESSION: 3 centimeter right renal mass which has enlarged from 2017 probably represents neoplasm 1.5 centimeter mass within pancreatic head is suspected
--- NOTE | 2018-12-20 10:43 | RAD REPORT ---
EXAM DESCRIPTION: MRI - Pelvis W/Wo Cont - 12/20/2018 8:44 am CLINICAL HISTORY: Pelvic pain. Renal cell carcinoma COMPARISON: 2017 TECHNIQUE: Axial, sagittal, and coronal magnetic images of the pelvis were obtained. 20 cc MultiHanc e administered intravenously FINDINGS: 24 millimeter mass abuts the mid to distal sigmoid. The mass enhances. No significant abnormality of the prostate, seminal vessels or bladder seen. Heterogeneous signal is present throughout the bones perhaps secondary to an infiltrative process. 5.5 centimeter right iliopsoas bursitis Spondylosis L4-5 resulting in mild to moderate central spinal stenosis IMPRESSION: 24 millimeter mass abutting the sigmoid colon may represent colon neoplasm, metastasis o r neoplastic lymph node
[2018-12-20 12:30] LABS: Urine Appearance CLEAR; Urine Bilirubin NEGATIVE (NEG); Urine Blood NEGATIVE (NEG); Urine Color YELLOW; Urine Glucose NEGATIVE (NEG); Urine Microscopic Reflex ORDER UMIC; Urine Protein 1+ (NEG); Urine Urobilinogen 0.2 mg/dL (0.2-1.0); Urine pH 6.5 (5.0-7.0)
[2018-12-20 12:37] LABS: Urine Bacteria <20 /HPF (NONE SEEN); Urine Culture Reflex Order NOT NEEDED; Urine RBC NONE SEEN /HPF (NONE SEEN)
[2018-12-20] MEDS: TOLVAPTAN 15 MG TABLET PO SCH (16:30)
--- NOTE | 2018-12-20 17:31 | P.PN ---
Subjective Date of Service: 12/20/18 Chief Complaint: Hyponatremia Patient seen and examined at bedside. Family at bedside. Chart reviewed and case discussed with nursing staff, Dr. Hernández, Dr. Ford, and Dr. Knox. No acute events noted overnight. Patient lying in bed, no acute distress. No concerns or complaints. Denies any symptoms or complaints. Review of Systems 10-point ROS is otherwise unremarkable Physical Examination - Vital Signs Temperature: 98.2 F Blood Pressure: 163/88 Pulse: 76 Respirations: 18 Pulse Ox (%): 95 - Physical Exam General: Alert, In no apparent distress HEENT: Atraumatic, PERRLA, EOMI Neck: Supple, JVD not distended Respiratory: Clear to auscultation bilaterally, Normal air movement Cardiovascular: Regular rate/rhythm, Normal S1 S2 Gastrointestinal: Normal bowel sounds, No tenderness Musculoskeletal: No tenderness Integumentary: No rashes Neurological: Normal speech, Normal tone, Normal affect Lymphatics: No axilla or inguinal lymphadenopathy - Studies Laboratory Data (last 24 hrs) 12/20/18 09:02: Sodium 135 L, Potassium 4.2, BUN 20 H, Creatinine 1.79 H, Glucose 144 H, Phosphorus 3.3, Total Bilirubin 0.5, AST 17, ALT 24, Alkaline Phosphatase 97 12/19/18 16:54: Sodium 129 L, Potassium 4.2, BUN 21 H, Creatinine 1.59 H, Glucose 101 Microbiology Data (last 24 hrs): 12/18/18 16:40 Clean Catch Urine [place] Count - Final <10,000 CFU/ML. 12/18/18 16:40 Clean Catch Urine - Final Assessment And Plan - Current Problems (Diagnosis) (1) Generalized weakness Current Visit: Yes Status: Acute (2) Hyponatremia Onset Date: 08/30/17 Current Visit: No Status: Acute (3) Chronic kidney disease Onset Date: 08/31/17 Current Visit: No Status: Chronic Qualifiers: (4) Coronary artery disease Onset Date: 08/30/17 Current Visit: No Status: Chronic Qualifiers: (5) Gastro-esophageal reflux disease without esophagitis Onset Date: 08/30/17 Current Visit: No Status: Chronic (6) Hypertension Onset Date: 08/30/17 Current Visit: No Status: Chronic Qualifiers: Hypertension type: essential hypertension (7) Nicotine dependence, cigarettes, uncomplicated Onset Date: 08/30/17 Current Visit: No Status: Chronic (8) Personal history of renal cell carcinoma Current Visit: Yes Status: Chronic (9) Brain lesion Current Visit: Yes Status: Acute (10) Pancreatic mass Current Visit: Yes Status: Acute (11) Renal mass Current Visit: Yes Status: Acute - Plan History of renal cell carcinoma, status post nephrectomy in 2000 Brain lesions on MRI consistent with metastasis Mass and pancreatic head Right renal mass, with changes from prior imaging. Patient has a history of renal cell carcinoma, status post nephrectomy in 2000. Per patient, he has been in remission since then and he did not see an oncologist. He was going to an outpatient clinic and MD Cronin, but that has been a while ago. MRI of the brain was done because patient has been having progressively worsening falls and generalized weakness. MRI of the brain was positive for multiple brain enhanced lesions suspicious for metastasis. MRI of the abdomen/ pelvis was also positive for a mass in the pancreatic head, right renal mass that has grown bigger from prior imaging in 2017 and a mass seen near colon. Results were discussed with the patient. Patient decided that he does not want to go to [place] to see oncologist and he would like to stay in the area. Case was extensively discussed with and Dr. Ford (Radiation Oncologist). MRI images were also reviewed by oncology/radiation oncology. Recommendations really appreciated. CT scan of the chest ordered to evaluate for any evidence of metastasis there. Will also see if there are any lesions that are able to biopsy in the chest/ lungs. Of this time, patient is tentatively scheduled with Dr. Ford on Monday. He will also be following up with in the clinic after for further management and evaluation. Urology consulted, recommendations appreciated. Continue Keppra as recommended Hyponatremia Patient did receive 1 dose of Tolvaptan. Patient's sodium normalized this morning. Social work is involved to see if patient will qualify for financial help with this medication. Continue home salt tablets Nephrology on board, recommendations appreciated Chronic kidney disease Creatinine at baseline Coronary artery disease Stable Gastro-esophageal reflux disease without esophagitis Continue home Protonix Hypertension Nicotine dependence, cigarettes, uncomplicated Generalized weakness DVT prophylaxis: Eliquis GI prophylaxis: Protonix Diet: Regular Disposition: Pending CT scan, potential biopsy. Likely discharge home tomorrow after CT scan.
--- NOTE | 2018-12-20 18:37 | RAD REPORT ---
EXAM DESCRIPTION: CT - CT CHEST,ABD,PELVIS W/O - 12/20/2018 5:43 pm CLINICAL HISTORY: Chest and abdomen pain. Eval for mets to lungs for possible biopsy COMPARISON: CTANGIO CHEST FOR PE dated 08/23/2011; Abdomen WWo Cont dated 12/20/2018; Pelvis W/Wo Con t dated 12/20/2018; Pituitary W Wo Cont dated 12/19/2018 TECHNIQUE: A limited noncontrast study was performed. All CT scans are performed using dose optimization technique as appropriate and may include automated exposure control or mA/KV adjustment according to patient size. FINDINGS: COPD is present diffusely throughout the lungs. [place] pleural based mass is seen in the s uperior segment right lower lobe measuring 20 x 35 mm and medially adjacent to a posterior rib. Addit ional smaller pleural based polypoid lesions are seen inferior in the superior segment right lower me asuring 11 x 19 and 9 x 19 mm. These lesions are not typical of metastatic deposits in may be seconda ry to postobstructive pneumonitis/ inflammation.An irregular right hilar mass is present measuring 3. 8 x 3.6 cm.Additional adenopathy is seen in the mediastinum including the sub- carinal region measuri ng 3.4 x 2.2 cm, precarinal region measuring 2.8 x 1.7 cm, pretracheal region measuring 1.8 x 1.7 cm and anterior mediastinal fat measuring 13 mm. The liver contains a 22 mm cyst in the caudate lobe. Cholelithiasis. The spleen, right adrenal gland are normal. Pancreas is somewhat poorly visualized due to lack of contrast. Vague areas of diminished density in the pancreatic head are present, incompletely assessed. Left nephrectomy changes are note d with surgical clips from lymph node dissection in the retroperitoneum and pelvis noted. 3 cm exophy tic mass involving the cortex of the right kidney is present likely representing RCC. No bowel obstruction, free air, free fluid or abscess. Appendectomy. Fat containing ventral hernia is present. No pathologic lymphadenopathy in the abdomen or pelvis. No lytic or blastic bone lesion. IMPRESSION: Irregular hilar mass is present on the right measuring 3.4 x 2.2 cm, likely neoplastic.M etastatic lymphadenopathy is present in the mediastinum as described. Moderate COPD. 3 cm exophytic cyst right renal mass is present likely representing RCC. Poorly defined area of diminished density in the pancreatic head region is incompletely assessed due to lack of IV contrast. A mass in this location is not excluded. Several pleural based polypoid and tree-in-bud lesions in the superior segment right lower lobe as de scribed. These lesions do not have the typical appearance metastatic disease and may be related to po stobstructive pneumonitis/inflammation. These lung lesions are not amenable to CT-guided percutaneous biopsy due to their position and adjacent posterior rib.
--- NOTE | 2018-12-20 20:23 | PN ---
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 Physical Examination: Vital Signs: When I saw the patient, blood pressure 120/71, pulse of 79. Chest: Clear to auscultation. Heart: S1, S2 regular. Abdomen: Soft, nontender. Extremities: No edema. Laboratory Data: H and H 12.4/35.5, sodium 135, potassium 4.2, bicarb 28, BUN 20, creatinine 1.7, calcium 9.9, phosphorus 3.3. Current Medications: Current medications the patient on, its include: Aspirin , amlodipine 5 mg, metoprolol 50, Keppra, tolvaptan 15 mg daily, Florinef. Assessment And Plan: 1. Hyponatremia, secondary to syndrome of inappropriate antidiuretic hormone, secondary to paraneoplastic responding to tolvaptan. Continue current dose. 2. Hyperkalemia. Responding very well to his Florinef. Continue current treatment. 3. Fall with possible masses in the abdomen, pancreas, colon and renal with metastasis . The patient was started on Keppra. We will follow up with Neurology. BERTIN/LOULOU Voice ID: [id number] Report ID: [id number] LEDY
[2018-12-20] MEDS: ATORVASTATIN 80 MG TAB PO SCH (21:30)
[2018-12-21 09:11] VITALS: BP 128/76; TEMP 97.9
[2018-12-21 09:13] LABS: Albumin 3.6 g/dL (3.4-5.0); Bilirubin Total 0.5 mg/dL (0.2-1.0); Phosphorus 3.7 mg/dL (2.5-4.9); Potassium 4.8 mmol/L (3.5-5.1); Protein, Total 7.2 g/dL (6.4-8.2)
[2018-12-21] MEDS: ASPIRIN 81 MG CHEWABLE TABLET PO SCH (09:25)
[2018-12-21] MEDS: PANTOPRAZOLE 40MG TABLET PO SCH (09:25)
[2018-12-21] MEDS: METOPROLOL TAR 50 MG TAB PO SCH (09:25)
[2018-12-21] MEDS: levETIRAcetam 500 MG TAB PO SCH (09:25)
[2018-12-21] MEDS: AMLODIPINE 5 MG TAB PO SCH (09:25)
[2018-12-21] MEDS: FLUDROCORTISONE 0.1 MG TAB PO SCH (09:28)
--- NOTE | 2018-12-21 11:43 | P.CNS ---
Date of Consult: 12/21/18 Chief Complaint: Hyponatremia lung mass History of Present Illness: Patient is 68 years of age multiple medical problems including renal cancer admitted from home with a diagnosis of hyponatremia patient is being feeling weak having some falls patient was found to have mets to the brain in addition to lung masses and a mass in his kidneys denies any fever or weight loss has some intermittent cough. Patient is a heavy smoker uses bronchodilator on a p.r.n. basis Allergies levofloxacin [From Levaquin] Allergy (Verified 08/30/17 23:04) Itching/Hives/Rash Home Medications: Cetirizine HCl [Zyrtec*] 5 mg PO DAILY 12/04/13 Vitamin B Complex [B Complex] 1 each PO DAILY 12/04/13 Atorvastatin Calcium [Lipitor] 80 mg PO BEDTIME #30 tablet 03/04/16 Pantoprazole [Protonix Tab*] 40 mg PO BID #60 tab 03/04/16 Metoprolol Tartrate [Lopressor*] 50 mg PO BID 08/26/17 Ascorbic Acid [Vitamin C*] 500 mg PO DAILY 07/08/18 Aspirin [Children's Aspirin] 81 mg PO DAILY 07/08/18 Sodium Chloride 1 gm PO DAILY 07/08/18 Amlodipine [Norvasc*] 5 mg PO DAILY 12/18/18 Cholecalciferol (Vitamin D3) [Vitamin D3] 5,000 unit PO DAILY 12/18/18 Fludrocortisone [Florinef *] 0.1 mg PO BEDTIME 12/18/18 Ipratropium/Albuterol Sulfate [Iprat-Albut 0.5-3(2.5) mg/3 ml] 3 ml IH DAILY levETIRAcetam [Keppra*] 250 mg PO BID #60 tab 12/21/18 - Past Medical/Surgical History Diabetic: No -: Hyperlipidemia -: Hypertension -: Coronary artery disease, Cardiology-Dr. Cabello -: History of MS with stent placement-2011 -: History of testicular carcinoma with mets in 1992. -: History of kidney cancer requiring nephrectomy in 2000 -: History of bladder cancer in 2013, urology-Dr. Pérez -: GERD -: Chronic kidney disease, Nephrology-Dr. Hernández -: Tobacco abuse -: Alcohol abuse -: Appendectomy-1976 -: Left-sided orchiectomy-1992 -: Abdominal lymph node resection -: Bilateral tendon repair -: left renal/adrenal gland removed -: Left kidney removed Psychosocial/ Personal History: of 32 years. Has 3 children. He works as a union pipe-fitter - Family History Mother Medical History: Heart disease, Stroke Father Medical History: Hypertension, Cancer Brother Medical History: Lung disease - Social History Smoking Status: Current every day smoker Alcohol use: Yes CD- Drugs: No Caffeine use: Yes Place of Residence: Home Review of Systems General: Weakness Respiratory: Cough, Shortness of Breath Physical Examination Temp Pulse Resp BP Pulse Ox 97.9 F 65 18 128/76 98 12/21/18 08:00 12/21/18 08:00 12/21/18 08:00 12/21/18 08:00 12/21/18 08:00 General: Alert, Oriented x3 HEENT: Atraumatic Neck: Supple Respiratory: Clear to auscultation bilaterally, Diminished Cardiovascular: No edema, Regular rate/rhythm Gastrointestinal: Normal bowel sounds, Soft and benign Musculoskeletal: No clubbing, No swelling Integumentary: No rashes, No breakdown Laboratory Data (last 24 hrs) 12/21/18 08:12: Sodium 135 L, Potassium 4.8, BUN 22 H, Creatinine 1.67 H, Glucose 120 H, Phosphorus 3.7, Total Bilirubin 0.5, AST 29, ALT 24, Alkaline Phosphatase 97 - Problems (1) Lung mass Current Visit: Yes Status: Acute Plan: Patient is 68 years of age admitted with hyponatremia of lungs problems with his gait. He has multiple mets to the brain formal chest CT scan shows hilar mass also has a kidney mass heavy smoker I suspect that he has small-cell lung cancer he will be scheduled for an outpatient bronchoscopy explained to the patient the risks and benefit include bleeding infection and lung collapse only takes aspirin at home patient's vital signs are stable room-air oxygenation satisfactory will schedule him for an outpatient bronchoscopy I suggest adding some steroids add Decadron these to take schedule bronchodilators I have discussed with the patient the risks and benefits of bronchoscopy which include bleeding infection and lung collapse patient agrees niece to be placed on fluid restriction sodium has improved patient has renal insufficiency
--- NOTE | 2018-12-21 15:14 | P.DS ---
Admission Date: 12/18/18 Discharge Date: 12/21/18 Primary Care Provider: Dr. Sharp Disposition: ROUTINE DISCHARGE Discharge Condition: FAIR Reason for Admission: Hyponatremia lung mass Consultations: Pulmonology Neurology Oncology Radiation oncology - Problems (1) Generalized weakness Status: Acute (2) Hyponatremia Onset Date: 08/30/17 Status: Acute (3) Chronic kidney disease Onset Date: 08/31/17 Status: Chronic Qualifiers: (4) Coronary artery disease Onset Date: 08/30/17 Status: Chronic Qualifiers: (5) Gastro-esophageal reflux disease without esophagitis Onset Date: 08/30/17 Status: Chronic (6) Hypertension Onset Date: 08/30/17 Status: Chronic Qualifiers: Hypertension type: essential hypertension (7) Nicotine dependence, cigarettes, uncomplicated Onset Date: 08/30/17 Status: Chronic (8) Personal history of renal cell carcinoma Status: Chronic (9) Brain lesion Status: Acute (10) Pancreatic mass Status: Acute (11) Renal mass Status: Acute (12) Lung mass Status: Acute (13) Tobacco abuse Onset Date: 03/04/16 Status: Chronic Brief History of Present Illness: This is a 68-year-old male with multiple medical problems including nephrectomy in 2000 for cancer directly admitted from Dr. Hernández's office. Per patient, he was there in his kidney doctor's office for a follow up. Labs that were drawn on the showed a sodium level of 123. He does state that he has been getting weak and has had 1 falls. He is not hit his head. When he does feels this weakness, he states that he just lays there and does not move. He feels better and then) on doing about his business. Last episode of this was on Monday morning. He also states that he has been intermittently losing control of his bowel. Last episode of this was about a month ago. He went to the ER x2 and they were unable to tell him what was going on. He did have an appointment scheduled with neurology on the of this month. At the time of my exam, he was hemodynamically stable, alert oriented x3 and in no acute distress. Hospital Course: Patient was admitted for symptomatic hyponatremia, generalized falls. He was restarted on his home sodium tablets. Nephrology was consulted. He was given a dose of tolvaptan. His sodium levels improved and returned back to baseline. In order to evaluate further for possible neoplastic syndrome imaging was done. Patient has a history of renal cell carcinoma, status post nephrectomy in 2000. Per patient, he has been in remission since then and he did not see an oncologist. He was going to an outpatient clinic and MD Cronin, but that has been a while ago. MRI of the brain was done because patient has been having progressively worsening falls and generalized weakness. MRI of the brain was positive for multiple brain enhanced lesions suspicious for metastasis. MRI of the abdomen/ pelvis was also positive for a mass in the pancreatic head, right renal mass that has grown bigger from prior imaging in 2017 and a mass seen near colon. Results were discussed with the patient. Patient decided that he does not want to go to [place] to see oncologist and he would like to stay in the area. Case was extensively discussed with Dr. Knox and Dr. Ford (Radiation Oncologist). MRI images were also reviewed by oncology/radiation oncology. Recommendations really appreciated. CT scan of the chest ordered to evaluate for any evidence of metastasis there. CT chest with a hilar mass that is not amenable to percutaneous biospy with IR. Pulmonology was consulted and he stated that pt will be able to undergo a bronchoscopy as an outpatient in Dr. Marx's clinic. Of this time, patient is tentatively scheduled with Dr. Ford on Monday. He will also be following up with in the clinic after for further management and evaluation. Neurology was consulted, recommendations appreciated. Continue Keppra as started. At the time of discharge, patient was AAOx4, he was hemodynamically stable and asymptomatic. His diagnosis was discussed in detail with him. He understand the extent/ spread of the disease. He was very irritated and very eager to go home wihtout any further workup in patient. He understands he will: - Follow up with Dr. Marx for bronchoscopy for biopsy. - Follow up with Dr. Ford for radiation, this will be after they have a diagnosis of primary - Follow up with Dr. Knox for further evaluation/management. Dr. Sharp (His PCP) was called and updated on patient's workup so far. He was discharged with decadron 8 mg BID x 14 day course, keppra. No other medication changes made. SW was consulted for approval of tolvaptan but per outsole caser, this will likely not be approved by insurance and patient was not willing to wait for further answers as he was anxious to leave from here. Vital Signs/Physical Exam: Temp Pulse Resp BP Pulse Ox 97.9 F 65 18 128/76 98 12/21/18 08:00 12/21/18 08:00 12/21/18 08:00 12/21/18 08:00 12/21/18 08:00 General: Alert, In no apparent distress, Oriented x3 HEENT: Atraumatic, PERRLA, EOMI Neck: Supple, JVD not distended Respiratory: Clear to auscultation bilaterally, Normal air movement Cardiovascular: Regular rate/rhythm, Normal S1 S2 Gastrointestinal: Normal bowel sounds, No tenderness Musculoskeletal: No tenderness Integumentary: No rashes Neurological: Normal speech, Normal tone, Normal affect Lymphatics: No axilla or inguinal lymphadenopathy Laboratory Data at Discharge: WBC 7.0 K/uL (4.3-10.9) 12/19/18 08:27 Hgb 12.4 g/dL (13.6-17.9) L 12/19/18 08:27 Hct 35.5 % (39.6-49.0) L 12/19/18 08:27 Plt Count 256 K/uL (152-406) 12/19/18 08:27 Sodium 135 mmol/L (136-145) L 12/21/18 08:12 Potassium 4.8 mmol/L (3.5-5.1) 12/21/18 08:12 BUN 22 mg/dL (7-18) H 12/21/18 08:12 Creatinine 1.67 mg/dL (0.55-1.3) H 12/21/18 08:12 Glucose 120 mg/dL (74-106) H 12/21/18 08:12 Phosphorus 3.7 mg/dL (2.5-4.9) 12/21/18 08:12 Magnesium 1.8 mg/dL (1.8-2.4) 12/18/18 14:13 Total Bilirubin 0.5 mg/dL (0.2-1.0) 12/21/18 08:12 AST 29 U/L (15-37) 12/21/18 08:12 ALT 24 U/L (12-78) 12/21/18 08:12 Alkaline Phosphatase 97 U/L (45-117) 12/21/18 08:12 Troponin I < 0.02 ng/mL (0.0-0.045) 12/18/18 14:13 Home Medications: RX: Cetirizine HCl [Zyrtec*] 5 mg PO DAILY 12/04/13 RX: Vitamin B Complex [B Complex] 1 each PO DAILY 12/04/13 RX: Atorvastatin Calcium [Lipitor] 80 mg PO BEDTIME #30 tablet 03/04/16 RX: Pantoprazole [Protonix Tab*] 40 mg PO BID #60 tab 03/04/16 RX: Metoprolol Tartrate [Lopressor*] 50 mg PO BID 08/26/17 RX: Ascorbic Acid [Vitamin C*] 500 mg PO DAILY 07/08/18 RX: Aspirin [Children's Aspirin] 81 mg PO DAILY 07/08/18 RX: Sodium Chloride 1 gm PO DAILY 07/08/18 RX: Amlodipine [Norvasc*] 5 mg PO DAILY 12/18/18 RX: Cholecalciferol (Vitamin D3) [Vitamin D3] 5,000 unit PO DAILY 12/18/18 RX: Fludrocortisone [Florinef *] 0.1 mg PO BEDTIME 12/18/18 RX: Ipratropium/Albuterol Sulfate [Iprat-Albut 0.5-3(2.5) mg/3 ml] 3 ml IH DAILY 12/18/18 Dexamethasone [Decadron] 8 mg PO BID 14 Days #56 tab 12/21/18 RX: levETIRAcetam [Keppra*] 250 mg PO BID #60 tab 12/21/18 New Medications: Dexamethasone [Decadron] 8 mg PO BID 14 Days #56 tab RX: levETIRAcetam [Keppra*] 250 mg PO BID #60 tab Patient Discharge Instructions: Please follow up with the primary care physician in 2-3 days. Please return to the emergency room with worsening symptoms Diet: Regular Activity: Ad zoe Followup: David Marx MD [ACTIVE - CAN ADMIT] - (call to schedule appointment) Cristina Hernández MD [ACTIVE - CAN ADMIT] - (call to schedule appointment) Mark Sharp MD [Primary Care Provider] - (call to schedule appointment) Jamila Knox MD [ACTIVE - CAN ADMIT] - (call to schedule appointment) Kuldeep Ford MD [ASSOCIATE-ACTIVE - CAN ADMIT] - (call to schedule appointment) Time spent managing pt's care (in minutes): 75
--- NOTE | 2018-12-26 08:38 | EEG ---
CHART: [id number] TEST ID#: [id number] DATE OF STUDY: 12/19/2018 THE EEG WAS RECORDED PORTABLE IN THE PATIENTS ROOM ON A 17 CHANNEL MACHINE. ELECTRODES WERE APPLIED IN THE USUAL MANNER USING THE INTERNATIONAL 10-20 SYSTEM. THE WAKING BACKGROUND RHYTHM IN THIS RECORD CONSISTS OF WELL DEVELOPED AND WELL ORGANIZED WAVES OF 8.5 HZ., WHICH ATTENUATE NORMALLY WITH EYE OPENING. THERE ARE NO FOCAL OR LATERALIZING FEATURES. NO EPILEPTIFORM ACTIVITY APPEARS. SLEEP OCCURRED NATURALLY. IN ADDITION NORMAL SLEEP PATTERNS ARE PRESENT. HYPERVENTILATION WAS NOT PERFORMED. PHOTIC STIMULATION PRODUCED POOR DRIVING BILATERALLY. IMPRESSION: NORMAL EEG FOR THE AGE OF THE PATIENT IN [place], DROWSINESS AND SLEEP.
== END 2018-12-21 11:45 | disposition home or self-care (01) | DRG 644 ==
LOC: 4TH 13:20
PROVIDERS: ADMIT Family Medicine; ATTEND Family Medicine
DX: E22.2 Syndrome of inappropriate secretion of antidiuretic hormone (principal); C79.31 Secondary malignant neoplasm of brain; R91.8 Other nonspecific abnormal finding of lung field; K86.9 Disease of pancreas, unspecified; N28.89 Other specified disorders of kidney and ureter; R53.1 Weakness; E87.5 Hyperkalemia; I25.10 Atherosclerotic heart disease of native coronary artery without angina pectoris; I12.9 Hypertensive chronic kidney disease with stage 1 through stage 4 chronic kidney disease, or unspecified chronic kidney disease; N18.9 Chronic kidney disease, unspecified; K21.9 Gastro-esophageal reflux disease without esophagitis; F17.210 Nicotine dependence, cigarettes, uncomplicated; E78.5 Hyperlipidemia, unspecified; N40.0 Benign prostatic hyperplasia without lower urinary tract symptoms; I25.2 Old myocardial infarction; Z79.82 Long term (current) use of aspirin; Z85.528 Personal history of other malignant neoplasm of kidney; Z85.51 Personal history of malignant neoplasm of bladder; Z95.5 Presence of coronary angioplasty implant and graft; Z90.5 Acquired absence of kidney
CPT/HCPCS: 36415; 70553; 71250; 72197; 74176; 74183; 80048; 80053; 80069; 81003; 81015; 82024; 82533; 82550; 82553; 83735; 83930; 83935; 84100; 84132; 84300; 84443; 84484; 85025; 87086; 87088; 93005; 95819; A9577; J0834

== ENCOUNTER 2018-12-27 10:40 | Day surgery (SDC) | payer OTHER, MEDICARE ==
[2018-12-27] MEDS ORDERED: Ringers Lactate 1,000 ML IV ONE (10:57)
[2018-12-27] MEDS ORDERED: Phenylephrine HCl 10 MG/ML 1 ML VIAL ONE ×2 (11:26→12:00)
[2018-12-27] MEDS ORDERED: GLYCOPYRROLATE 0.2 MG/ML SYR ONE (11:26)
[2018-12-27] MEDS ORDERED: LIDOCAINE 4% TOP SOLUTION ONE (11:26)
[2018-12-27] MEDS ORDERED: LIDOCAINE VISCOUS 2% SOLN 15 ML UDC ONE (11:26)
[2018-12-27] MEDS ORDERED: LIDOCAINE 1% MPF 30 ML VIAL ONE (11:26)
[2018-12-27] MEDS ORDERED: NITROGLYCERIN 0.4 MG/TAB SL ONE (12:00)
[2018-12-27] MEDS ORDERED: FENTANYL CITR 100 MCG/2 ML ONE (12:00)
[2018-12-27] MEDS ORDERED: PROPOFOL 200 MG/20 ML VIAL IV ONE ×2 (12:00)
[2018-12-27] MEDS ORDERED: NS 0.9% VIAL 0 ML ONE (12:00)
[2018-12-27] MEDS ORDERED: LIDOCAINE 1% MPF 5 ML VIAL ONE (12:01)
[2018-12-27] MEDS ORDERED: MIDAZOLAM HCL 2 MG/2 ML INJ ONE (12:01)
--- NOTE | 2018-12-27 13:11 | P.OP ---
Date of Service: 12/27/18 Findings and Operative Technique Patient is 68 years of age was scheduled to have a bronchoscopy done today for lung cancer. He developed chest pain was seen by anesthesiology chest pain was relieved with nitroglycerin described as a burning sensation EKG was normal troponins are pending loss for a cardiology Consul procedure was cancel he will need cardiac clearance prior to scheduling another bronchoscopy discuss with the patient and the
[2018-12-27 13:54] VITALS: BP 126/71; TEMP 97.6; O2SAT 100
--- NOTE | 2018-12-27 21:28 | CON ---
Chief Complaint: Chest pain. History Of Present Illness: Mr. Brizuela has a history of CAD, history of lung cancer. His lung canc er treated, it shrank, and now seems to be coming back. He was scheduled for a bronchoscopy outpatie nt surgery but started having chest pain. The chest pain was sudden onset, right-sided, went away af ter a few minutes. An EKG did not show any changes. More than 5 years ago, he had a stent placed in a coronary artery and since then he has not had any other acute coronary syndrome admissions, no fur ther stents have been needed and stress tests have looked good. The pain he had was quite uncharacte ristic for him and did not have a lot of characteristics similar to when he had acute coronary syndro me in the past. He also has a history of renal cancer with a pulmonary metastasis. He also may have metastasis to the brain. Social History: He is a current everyday cigarette smoker. Alcohol use, moderate. No illegal drugs . Physical Examination: General: He appears to be older than his stated age, somewhat ill in general appearance, not in any acute distress. Lungs: Reveal no wheezing or crackles. Decreased breath sounds are noted in all the lung olmedo. It is mostly bronchial breath sounds. Heart: Exam reveals a regular rate and rhythm. No significant murmur or gallop is appreciated. Extr emities: Revealed mild edema. Distal pulses diminished. Diagnostic Studies: EKG done today shows normal sinus rhythm and it is a completely normal EKG. Plan: I have recommended that the patient have a pharmacologic nuclear stress test and we will see w hat we learn from that before proceeding with bronchoscopy. I suppose the bronchoscopy is to make a diagnosis of which type of cancer the lung masses are, lung or metastatic renal to aid in therapy. TERESA/LOULOU Voice ID: [id number] Report ID: [id number]
== END 2018-12-27 14:05 | disposition home or self-care (01) ==
LOC: OR 10:40
PROVIDERS: ATTEND Internal Medicine Sleep Medicine
DX: R91.8 Other nonspecific abnormal finding of lung field (principal); Z53.09 Procedure and treatment not carried out because of other contraindication; R07.89 Other chest pain; I25.10 Atherosclerotic heart disease of native coronary artery without angina pectoris; I10 Essential (primary) hypertension; I25.2 Old myocardial infarction; K21.9 Gastro-esophageal reflux disease without esophagitis; E78.5 Hyperlipidemia, unspecified; F17.210 Nicotine dependence, cigarettes, uncomplicated; Z79.82 Long term (current) use of aspirin; Z79.899 Other long term (current) drug therapy; Z95.5 Presence of coronary angioplasty implant and graft; Z85.53 Personal history of malignant neoplasm of renal pelvis
CPT/HCPCS: 36415; 84484; J2250; J2370; J2704; J3010

== ENCOUNTER 2018-12-27 18:29 | Inpatient (IN) | payer OTHER, MEDICARE ==
[2018-12-27] MEDS ORDERED: NA CHLORIDE 0.9% 0 ML ONE (20:41)
[2018-12-27 20:47] LABS: Absolute Lymphocytes (CBC) 1.6 K/uL (0.7-4.9); Absolute Neutrophil 11.7 K/uL (1.8-8.0); Basophils % 0.2 % (0-1.3); Eosinophils % 0.6 % (0-4.4); Hematocrit 39.2 % (39.6-49.0); Lymphocytes % 10.4 % (15.3-44.8); MPV 7.4 fL (7.6-11.3); Monocytes % 12.8 % (3.3-12.3); RBC Red Blood Cell Count 4.19 M/uL (4.33-5.43)
[2018-12-27 20:48] LABS: Protime INR 0.89
--- NOTE | 2018-12-27 20:49 | RAD REPORT ---
EXAM DESCRIPTION: RAD - Chest Single View - 12/27/2018 8:22 pm CLINICAL HISTORY: Chest pain, bladder cancer, chest mass COMPARISON: CT chest December 20 TECHNIQUE: AP portable chest image was obtained 2001 hours . FINDINGS: Underlying fibrotic lung changes are present. No failure or volume overload. Masslike dens ities in the right midlung field are noted matching December 20 CT chest study. Right hilar fullness is present. Heart and vasculature are normal. No measurable pleural effusion and no pneumothorax. No acu te bony abnormality seen. No acute aortic findings suspected. IMPRESSION: Right lung field and right perihilar mass densities matching the December 20 CT study. No pneumonia, failure or volume overload.
[2018-12-27 20:52] LABS: Urine Blood NEGATIVE (NEG); Urine Glucose NEGATIVE (NEG); Urine Protein 2+ (NEG); Urine Specific Gravity 1.015 (1.005-1.030)
[2018-12-27 21:00] LABS: ALT/SGPT 24 U/L (12-78); AST/SGOT 16 U/L (15-37); Albumin 3.5 g/dL (3.4-5.0); Alkaline Phosphatase 85 U/L (45-117); BUN Blood Urea Nitrogen 29 mg/dL (7-18); Bicarbonate 29 mmol/L (21-32); Bilirubin Direct 0.2 mg/dL (0-0.2); Bilirubin Total 0.6 mg/dL (0.2-1.0); Glucose Level 113 mg/dL (74-106); Lipase 10927 U/L (73-393); Magnesium 2.2 mg/dL (1.8-2.4); NT PRO-BNP 908 pg/mL (<125); Potassium 3.2 mmol/L (3.5-5.1); Protein, Total 6.7 g/dL (6.4-8.2); Sodium Level 127 mmol/L (136-145); Troponin (Emerg Dept Use Only) < 0.02 ng/mL (0.0-0.045)
[2018-12-27] MEDS ORDERED: PIPER/TAZO/NS 3.375gm 3.375 GM/100 ML BAG ONE (21:55)
[2018-12-27] MEDS ORDERED: FAMOTIDINE 20 MG/2 ML VIAL IV ONE (21:55)
[2018-12-27] MEDS ORDERED: NA CHLORIDE 0.9% 1,000 ML ONE ×2 (21:56→23:49)
--- NOTE | 2018-12-27 23:23 | ER ---
Nurse's Notes [facility] Name: Diego Brizuela Age: 68 yrs Sex: Male : 1950 Arrival Date: 12/27/2018 Time: 18:35 Bed 18 Private MD: Diagnosis: Chest pain, unspecified;Abdominal tenderness;Acute pancreatitis;Cholelithiasis;Chronic obstructive pulmonary disease, unspecified-LUNG MASS RIGHT HILAR. RIGHT LOWER LOBE NODULES,RIGHT KIDNEY MASS, CONCERNING FOR RCC Presentation: 12/27 18:35 Presenting complaint: EMS states: pt has hx of bladder cancer, should have a lung hj biopsy this morning at day surgery which did not happen because he was complaining of chest pain, was sent home, EMT was called at home now for abdominal pain; denies N/V; denies fever; BP- 134/84;. Transition of care: patient was not received from another setting of care. Onset of symptoms was December 27, 2018. Risk Assessment: Do you want to hurt yourself or someone else? Patient reports no desire to harm self or others. Initial Sepsis Screen: Does the patient meet any 2 criteria? No. Patient's initial sepsis screen is negative. Does the patient have a suspected source of infection? No. Patient's initial sepsis screen is negative. Care prior to arrival: None. 18:35 Method Of Arrival: EMS: [facility] 18:35 Acuity: EDWARD 3 hj Triage Assessment: 18:41 General: Appears in no apparent distress. uncomfortable, Behavior is calm, cooperative, hj appropriate for age. Pain: Complains of pain in abdomen. GI: Reports upper abdominal pain. Historical: - Allergies: 18:39 Levaquin; hj - Home Meds: 18:39 levetiracetam 250 mg oral tab 1 tabs 2 times per day [Active]; atorvastatin 80 mg oral hj tab 1 tab once daily [Active]; fludrocortisone 0.1 mg oral tab 1 tab once daily [Active]; ipratropium-albuterol 0.5 mg-3 mg(2.5 mg base)/3 mL Inhl nebu 3 mL 4 times per day [Active]; metoprolol tartrate 50 mg Oral tab 1 tab 2 times per day [Active]; Protonix 40 mg oral TbEC 1 tab 2 times per day [Active]; sodium chloride 1 gram oral tab [Active]; aspirin 81 mg Oral chew 1 tab once daily [Active]; Vitamin D3 5,000 unit oral tab daily [Active]; Zyrtec 10 mg Oral cap [Active]; amlodipine 5 mg tab 1 tab once daily [Active]; - PMHx: 18:39 Bladder CA; Hypertension; Myocardial infarction; testicular CA; hj - PSHx: 18:39 Left Orichectomy; Cardiac Stent; Nephrectomy; hj - Immunization history:: Adult Immunizations up to date. - Social history:: Smoking status: Patient/guardian denies using tobacco, Patient/guardian denies using alcohol. - Ebola Screening: : Patient negative for fever greater than or equal to 101.5 degrees Fahrenheit, and additional compatible Ebola Virus Disease symptoms Patient denies exposure to infectious person Patient denies travel to an Ebola-affected area in the 21 days before illness onset. - Family history:: not pertinent. Screenin:41 Abuse screen: Denies threats or abuse. Denies injuries from another. Nutritional hj screening: No deficits noted. Tuberculosis screening: No symptoms or risk factors identified. Fall Risk None identified. Assessment: 18:42 GI: Bowel sounds present X 4 quads. Abd is soft Abdomen is tender to palpation. hj 19:38 Reassessment: Patient and/or family updated on plan of care and expected duration. Pain ed1 level reassessed. Patient is alert, oriented x 3, equal unlabored respirations, skin warm/dry/pink. Patient states symptoms have not improved. GI: Abdomen is flat, non-distended, Bowel sounds present X 4 quads. Abd is soft X 4 quads Abdomen is tender to palpation in epigastric area and right upper quadrant Reports epigastric pain. Musculoskeletal: Circulation, motion, and sensation intact. Range of motion: intact in all extremities. 20:35 Reassessment: Patient appears in no apparent distress at this time. Patient and/or ed1 family updated on plan of care and expected duration. Pain level reassessed. Patient is alert, oriented x 3, equal unlabored respirations, skin warm/dry/pink. Patient states symptoms have not improved. 21:35 Reassessment: Patient appears in no apparent distress at this time. No changes from ed1 previously documented assessment. Patient and/or family updated on plan of care and expected duration. Pain level reassessed. Patient is alert, oriented x 3, equal unlabored respirations, skin warm/dry/pink. 22:35 Reassessment: Patient appears in no apparent distress at this time. Patient and/or ed1 family updated on plan of care and expected duration. Pain level reassessed. Patient is alert, oriented x 3, equal unlabored respirations, skin warm/dry/pink. Patient denies pain at this time. 23:35 Reassessment: Patient appears in no apparent distress at this time. No changes from ed1 previously documented assessment. Patient and/or family updated on plan of care and expected duration. Pain level reassessed. Patient is alert, oriented x 3, equal unlabored respirations, skin warm/dry/pink. Patient denies pain at this time. 12/28 00:35 Reassessment: Patient appears in no apparent distress at this time. No changes from ed1 previously documented assessment. Patient and/or family updated on plan of care and expected duration. Pain level reassessed. Patient is alert, oriented x 3, equal unlabored respirations, skin warm/dry/pink. Patient denies pain at this time. Vital Signs: 12/27 18:40 BP 143 / 75; Pulse 51; Resp 18; Temp 98.1(O); Pulse Ox 100% on R/A; Weight 83.91 kg; hj Height 6 ft. 2 in. (187.96 cm); 19:38 BP 132 / 72; Pulse 63; Resp 13; Temp 98.2; Pulse Ox 100% on R/A; Pain 7/10; ed1 20:35 BP 123 / 64; Pulse 61; Resp 17; Temp 98.4(O); Pulse Ox 96% on R/A; Pain 4/10; ed1 21:35 BP 143 / 84; Pulse 56; Resp 19; Temp 98.6(O); Pulse Ox 100% on R/A; Pain 4/10; ed1 22:35 BP 142 / 80; Pulse 61; Resp 18; Temp 97.1; Pulse Ox 98% on R/A; Pain 0/10; ed1 23:35 BP 117 / 64; Pulse 73; Resp 18; Temp 97.4(O); Pulse Ox 100% on R/A; Pain 0/10; ed1 12/28 00:35 BP 149 / 63; Pulse 65; Resp 14; Temp 98.0(O); Pulse Ox 100% on R/A; Pain 0/10; ed1 01:25 BP 124 / 68; Pulse 63; Resp 13; Temp 97.4(O); Pulse Ox 98% on R/A; Pain 0/10; ed1 02 18:40 Body Mass Index 23.75 (83.91 kg, 187.96 cm) ED Course: 12/27 18:35 Patient arrived in ED. hj 18:38 Triage completed. hj 18:42 Arm band placed on right wrist. hj 18:42 Patient has correct armband on for positive identification. Placed in gown. Bed in low hj position. Call light in reach. Side rails up X2. Adult w/ patient. 18:42 Maintain EMS IV. Dressing intact. Good blood return noted. Site clean \T\ dry. Gauge \T\ hj site: 22 G L wrist. 18:48 Rafael Turner RN is Primary Nurse. hj 18:59 EKG done, by ED staff, reviewed by Jonas Li MD. hj 19:29 Michael Cronin MD is Attending Physician. jose 19:38 Dr. Cronin at bedside. ed1 19:41 Primary Nurse role handed off by Rafael Turner RN ed1 19:41 Grisel Bishop, SOPHY is Primary Nurse. ed1 20:20 Initial lab(s) drawn, by ED staff, sent to lab. Inserted saline lock: 20 gauge in right ed1 antecubital area, using aseptic technique. Blood collected. 20:22 XRAY Chest (1 view) In Process Unspecified. EDMS 22:06 CT completed. Patient tolerated procedure well. Patient moved to CT via stretcher. wi Patient moved back from CT. 22:22 CT Chest Abdomen Pelvis W/O Contrast: oral only In Process Unspecified. EDMS 23:14 Wes Trujillo MD is Hospitalizing Provider. [facility] 23:35 Awaiting bed assignment. ed1 0503 00:35 Resting quietly. Awaiting bed assignment. ed1 01:25 No provider procedures requiring assistance completed. Patient admitted, IV remains in ed1 place. intact, No redness/swelling at site. 02:45 Primary Nurse role handed off by Grisel Bishop, SOPHY ed1 Administered Medications: 12/27 20:35 Drug: NS 0.9% 1000 ml Route: IV; Rate: 125 ml/hr; Site: right antecubital; ed1 12/28 02:08 Follow up: IV Status: Infusion continued upon admission ed1 12/27 21:55 Drug: NS 0.9% 1000 ml Route: IV; Rate: 1 bolus; Site: right antecubital; ed1 23:00 Follow up: IV Status: Completed infusion; IV Intake: 1000ml ed1 21:56 Drug: Pepcid 20 mg Route: IVP; Site: right antecubital; ed1 22:15 Follow up: Response: No adverse reaction ed1 21:56 Drug: Zosyn 3.375 grams Route: IVPB; Infused Over: 60 mins; Site: right antecubital; ed1 22:57 Follow up: Response: No adverse reaction; IV Status: Completed infusion; IV Intake: ed1 100ml 23:38 Not Given (Patient Refused): NS 0.9% 1000 ml IV at 1 bolus Per protocol; 1000 mL bolus ed1 Intake: 22:57 IV: 100ml; Total: 100ml. ed1 23:00 IV: 1000ml; Total: 1100ml. ed1 Outcome: 23:23 Decision to Hospitalize by Provider. [facility] 12/28 02:06 Admitted to Med/surg accompanied by tech, family with patient, via wheelchair, room ed1 207, with chart, Report called to SOPHY Browne Condition: stable Discharge instructions given to patient, family, Instructed on the need for admit, Demonstrated understanding of instructions. 02:09 Patient left the ED. ed1 Signatures: Dispatcher [employer] [facility] Michael Cronin MD MD cha Riggs, Erika, RN RN ed1 Rafael Turner RN RN hj Jordan, Nathan nj Corrections: (The following items were deleted from the chart) 12/27 18:40 18:35 Presenting complaint: EMS states: pt has hx of brain cancer, should have a lung hj biopsy this morning at day surgery which did not happen because he was complaining of chest pain, was sent home, EMT was called at home now for abdominal pain; denies N/V; denies fever; BP- 134/84; hj
--- NOTE | 2018-12-27 23:23 | EDPHYS ---
Physician Documentation [facility] Name: Diego Brizuela Age: 68 yrs Sex: Male : 1950 Arrival Date: 12/27/2018 Time: 18:35 Bed 18 Private MD: ED Physician Michael Cronin HPI: 12/27 19:56 This 68 yrs old Male presents to ER via EMS with complaints of Abdominal Pain.jose 19:56 The patient or guardian reports chest pain that is located primarily in the substernal jose area. Onset: today. The pain does not radiate. Associated signs and symptoms: The patient has no apparent associated signs or symptoms. The chest pain is described as sharp. Modifying factors: The symptoms are alleviated by nothing. the symptoms are aggravated by nothing. Severity of pain: At its worst the pain was mild in the emergency department the pain has improved. The patient has experienced similar episodes in the past, a few times. Historical: - Allergies: 18:39 Levaquin; hj - Home Meds: 18:39 levetiracetam 250 mg oral tab 1 tabs 2 times per day [Active]; atorvastatin 80 mg oral hj tab 1 tab once daily [Active]; fludrocortisone 0.1 mg oral tab 1 tab once daily [Active]; ipratropium-albuterol 0.5 mg-3 mg(2.5 mg base)/3 mL Inhl nebu 3 mL 4 times per day [Active]; metoprolol tartrate 50 mg Oral tab 1 tab 2 times per day [Active]; Protonix 40 mg oral TbEC 1 tab 2 times per day [Active]; sodium chloride 1 gram oral tab [Active]; aspirin 81 mg Oral chew 1 tab once daily [Active]; Vitamin D3 5,000 unit oral tab daily [Active]; Zyrtec 10 mg Oral cap [Active]; amlodipine 5 mg tab 1 tab once daily [Active]; - PMHx: 18:39 Bladder CA; Hypertension; Myocardial infarction; testicular CA; hj - PSHx: 18:39 Left Orichectomy; Cardiac Stent; Nephrectomy; hj - Immunization history:: Adult Immunizations up to date. - Social history:: Smoking status: Patient/guardian denies using tobacco, Patient/guardian denies using alcohol. - Ebola Screening: : Patient negative for fever greater than or equal to 101.5 degrees Fahrenheit, and additional compatible Ebola Virus Disease symptoms Patient denies exposure to infectious person Patient denies travel to an Ebola-affected area in the 21 days before illness onset. - Family history:: not pertinent. ROS: 19:56 Constitutional: Negative for fever, chills, and weight loss, Eyes: Negative for injury, jose pain, redness, and discharge, ENT: Negative for injury, pain, and discharge, Neck: Negative for injury, pain, and swelling, Cardiovascular: Negative for chest pain, palpitations, and edema, Abdomen/GI: Negative for abdominal pain, nausea, vomiting, diarrhea, and constipation, Back: Negative for injury and pain, : Negative for injury, bleeding, discharge, and swelling, MS/Extremity: Negative for injury and deformity, Skin: Negative for injury, rash, and discoloration, Neuro: Negative for headache, weakness, numbness, tingling, and seizure, Psych: Negative for depression, anxiety, suicide ideation, homicidal ideation, and hallucinations, Allergy/Immunology: Negative for hives, rash, and allergies, Endocrine: Negative for neck swelling, polydipsia, polyuria, polyphagia, and marked weight changes, Hematologic/Lymphatic: Negative for swollen nodes, abnormal bleeding, and unusual bruising. 19:56 Respiratory: Positive for wheezing, inspiratory, expiratory. Exam: 19:56 Constitutional: This is a well developed, well nourished patient who is awake, alert, jose and in no acute distress. Head/Face: Normocephalic, atraumatic. Eyes: Pupils equal round and reactive to light, extra-ocular motions intact. Lids and lashes normal. Conjunctiva and sclera are non-icteric and not injected. Cornea within normal limits. Periorbital areas with no swelling, redness, or edema. ENT: Nares patent. No nasal discharge, no septal abnormalities noted. Tympanic membranes are normal and external auditory canals are clear. Oropharynx with no redness, swelling, or masses, exudates, or evidence of obstruction, uvula midline. Mucous membranes moist. Neck: Trachea midline, no thyromegaly or masses palpated, and no cervical lymphadenopathy. Supple, full range of motion without nuchal rigidity, or vertebral point tenderness. No Meningismus. Chest/axilla: Normal chest wall appearance and motion. Nontender with no deformity. No lesions are appreciated. Cardiovascular: Regular rate and rhythm with a normal S1 and S2. No gallops, murmurs, or rubs. Normal PMI, no JVD. No pulse deficits. Abdomen/GI: Soft, non-tender, with normal bowel sounds. No distension or tympany. No guarding or rebound. No evidence of tenderness throughout. Back: No spinal tenderness. No costovertebral tenderness. Full range of motion. Male : Normal genitalia with no discharge or lesions. Skin: Warm, dry with normal turgor. Normal color with no rashes, no lesions, and no evidence of cellulitis. MS/ Extremity: Pulses equal, no cyanosis. Neurovascular intact. Full, normal range of motion. Neuro: Awake and alert, GCS 15, oriented to person, place, time, and situation. Cranial nerves II-XII grossly intact. Motor strength 5/5 in all extremities. Sensory grossly intact. Cerebellar exam normal. Normal gait. Psych: Awake, alert, with orientation to person, place and time. Behavior, mood, and affect are within normal limits. 19:56 Respiratory: the patient does not display signs of respiratory distress, Respirations: normal, Breath sounds: wheezing: inspiratory expiratory Respiratory rate: 13 19:59 Musculoskeletal/extremity: DVT Exam: No signs of deep vein thrombosis. no pain, no jose swelling, no tenderness, negative Homans' sign noted on exam, no appreciated bluish discoloration, no erythema, no increased warmth. Vital Signs: 18:40 BP 143 / 75; Pulse 51; Resp 18; Temp 98.1(O); Pulse Ox 100% on R/A; Weight 83.91 kg; Height 6 ft. 2 in. (187.96 cm); 19:38 BP 132 / 72; Pulse 63; Resp 13; Temp 98.2; Pulse Ox 100% on R/A; Pain 7/10; ed1 20:35 BP 123 / 64; Pulse 61; Resp 17; Temp 98.4(O); Pulse Ox 96% on R/A; Pain 4/10; ed1 21:35 BP 143 / 84; Pulse 56; Resp 19; Temp 98.6(O); Pulse Ox 100% on R/A; Pain 4/10; ed1 22:35 BP 142 / 80; Pulse 61; Resp 18; Temp 97.1; Pulse Ox 98% on R/A; Pain 0/10; ed1 23:35 BP 117 / 64; Pulse 73; Resp 18; Temp 97.4(O); Pulse Ox 100% on R/A; Pain 0/10; ed1 12/28 00:35 BP 149 / 63; Pulse 65; Resp 14; Temp 98.0(O); Pulse Ox 100% on R/A; Pain 0/10; ed1 01:25 BP 124 / 68; Pulse 63; Resp 13; Temp 97.4(O); Pulse Ox 98% on R/A; Pain 0/10; ed1 12/27 18:40 Body Mass Index 23.75 (83.91 kg, 187.96 cm) hj MDM: 12/27 19:29 Patient medically screened. [facility] 19:59 Data reviewed: vital signs, nurses notes, lab test result(s), EKG, radiologic studies, [facility] CT scan, plain films. 12/27 19:56 Order name: Basic Metabolic Panel [facility] 12/27 19:56 Order name: CBC with Diff; Complete Time: 21:06 [facility] 12/27 19:56 Order name: LFT's; Complete Time: 21:06 [facility] 12/27 19:56 Order name: Magnesium; Complete Time: 21:06 [facility] 12/27 19:56 Order name: NT PRO-BNP; Complete Time: 21:06 [facility] 12/27 19:56 Order name: PT-INR; Complete Time: 21:06 [facility] 12/27 19:56 Order name: Troponin (emerg Dept Use Only); Complete Time: 21:06 [facility] 12/27 19:56 Order name: XRAY Chest (1 view); Complete Time: 21:06 [facility] 12/27 19:56 Order name: Lipase; Complete Time: 21:06 [facility] 12/27 19:56 Order name: Basic Metabolic Panel; Complete Time: 21:06 EDWA 12/27 20:45 Order name: Urine Dipstick--Ancillary (enter results); Complete Time: 21:06 cm6 12/27 21:13 Order name: CT Chest Abdomen Pelvis W/O Contrast: oral only [facility] 12/27 18:58 Order name: EKG - Nurse/Tech; Complete Time: 18:58 12/27 19:56 Order name: EKG; Complete Time: 19:56 [facility] 12/27 19:56 Order name: Cardiac monitoring; Complete Time: 19:57 [facility] 12/27 19:56 Order name: IV Saline Lock; Complete Time: 19:59 [facility] 12/27 19:56 Order name: Labs collected and sent; Complete Time: 20:20 [facility] 12/27 19:56 Order name: O2 Per Protocol; Complete Time: 19:59 [facility] 12/27 19:56 Order name: O2 Sat Monitoring; Complete Time: 19:59 [facility] 12/27 19:59 Order name: Urine Dipstick-Ancillary (obtain specimen); Complete Time: 20:34 [facility] Administered Medications: 20:35 Drug: NS 0.9% 1000 ml Route: IV; Rate: 125 ml/hr; Site: right antecubital; ed1 12/28 02:08 Follow up: IV Status: Infusion continued upon admission ed1 12/27 21:55 Drug: NS 0.9% 1000 ml Route: IV; Rate: 1 bolus; Site: right antecubital; ed1 23:00 Follow up: IV Status: Completed infusion; IV Intake: 1000ml ed1 21:56 Drug: Pepcid 20 mg Route: IVP; Site: right antecubital; ed1 22:15 Follow up: Response: No adverse reaction ed1 21:56 Drug: Zosyn 3.375 grams Route: IVPB; Infused Over: 60 mins; Site: right antecubital; ed1 22:57 Follow up: Response: No adverse reaction; IV Status: Completed infusion; IV Intake: ed1 100ml 23:38 Not Given (Patient Refused): NS 0.9% 1000 ml IV at 1 bolus Per protocol; 1000 mL bolus ed1 Disposition: 12/27/18 23:23 Hospitalization ordered by Wes Trujillo for Inpatient Admission. Preliminary diagnosis are Chest pain, unspecified, Abdominal tenderness, Acute pancreatitis, Cholelithiasis, Chronic obstructive pulmonary disease, unspecified - LUNG MASS RIGHT HILAR. RIGHT LOWER LOBE NODULES,RIGHT KIDNEY MASS, CONCERNING FOR RCC. - Bed requested for Telemetry/MedSurg (Inpatient). - Status is Inpatient Admission. ed1 - Condition is Fair. - Problem is new. - Symptoms have improved. UTI on Admission? No Signatures: Dispatcher [employer] EDMS Michael Cronin MD MD cha Riggs, Erika RN RN ed1 Rafael Turner, RN RN Shavonne Young, RN RN cg Corrections: (The following items were deleted from the chart) 20:21 19:58 Chest For PE Angio+CT.RAD.BRZ ordered. EDWA EDWA 12/28 01:22 12/27 23:23 Hospitalization Ordered by Wes Trujillo MD for Inpatient Admission. cg Preliminary diagnosis is Chest pain, unspecified; Abdominal tenderness; Acute pancreatitis; Cholelithiasis; Chronic obstructive pulmonary disease, unspecified - LUNG MASS RIGHT HILAR. RIGHT LOWER LOBE NODULES,RIGHT KIDNEY MASS, CONCERNING FOR RCC. Bed requested for Telemetry/MedSurg (Inpatient). Status is Inpatient Admission. Condition is Fair. Problem is new. Symptoms have improved. UTI on Admission? No. jose 12/28 02:09 01:22 12/27/2018 23:23 Hospitalization Ordered by Wes Trujillo MD for Inpatient ed1 Admission. Preliminary diagnosis is Chest pain, unspecified; Abdominal tenderness; Acute pancreatitis; Cholelithiasis; Chronic obstructive pulmonary disease, unspecified - LUNG MASS RIGHT HILAR. RIGHT LOWER LOBE NODULES,RIGHT KIDNEY MASS, CONCERNING FOR RCC. Bed requested for Telemetry/MedSurg (Inpatient). Status is Inpatient Admission. Condition is Fair. Problem is new. Symptoms have improved. UTI on Admission? No. cg
--- NOTE | 2018-12-28 01:24 | P.HP ---
Certification for Inpatient Patient admitted to: Inpatient With expected LOS: >2 Midnights Practitioner: I am a practitioner with admitting privileges, knowledge of patient current condition, hospital course, and medical plan of care. Services: Services provided to patient in accordance with Admission requirements found in Title 42 Section 412.3 of the Code of Federal Regulations Patient History Date of Service: 12/28/18 Reason for admission: pancreatitis History of Present Illness: Mr Brizuela is a 68 years old male, with history of RCC s/p left nephrectomy. He recently was found to have several masses cencerning for metastatic disease in his colon, pancreas, lung and brain. He had scheduled today a bronchoscopy for lung node biopsy, however, the patient was complaining of chest/abdominal pain, and the procedure was canceled. He came to ER now, because his pain is even worse, now is localized on epigastrium radiated to LUQ. He denied fever or chills. No vomiting but nausea. Lab work shows Leukocytosis 15.3K, hyponatremia and hypochloremia, consistent with volume depletion. Also Hypokalemia [place] [address] [place] abd/pelvis, shows again right renal mass. Gallstones are present as well. Allergies levofloxacin [From Levaquin] Allergy (Verified 08/30/17 23:04) Itching/Hives/Rash Home Medications: Cetirizine HCl [Zyrtec*] 5 mg PO DAILY 12/04/13 Vitamin B Complex [B Complex] 1 each PO DAILY 12/04/13 Atorvastatin Calcium [Lipitor] 80 mg PO BEDTIME #30 tablet 03/04/16 Pantoprazole [Protonix Tab*] 40 mg PO BID #60 tab 03/04/16 Metoprolol Tartrate [Lopressor*] 50 mg PO BID 08/26/17 Ascorbic Acid [Vitamin C*] 500 mg PO DAILY 07/08/18 Aspirin [Children's Aspirin] 81 mg PO DAILY 07/08/18 Sodium Chloride 1 gm PO DAILY 07/08/18 Amlodipine [Norvasc*] 5 mg PO DAILY 12/18/18 Cholecalciferol (Vitamin D3) [Vitamin D3] 5,000 unit PO DAILY 12/18/18 Fludrocortisone [Florinef *] 0.1 mg PO BEDTIME 12/18/18 Ipratropium/Albuterol Sulfate [Iprat-Albut 0.5-3(2.5) mg/3 ml] 3 ml IH DAILY Dexamethasone [Decadron] 8 mg PO BID 14 Days #56 tab 12/21/18 levETIRAcetam [Keppra*] 250 mg PO BID #60 tab 12/21/18 - Past Medical/Surgical History Diabetic: No -: Hyperlipidemia -: Hypertension -: Coronary artery disease, Cardiology-Dr. Cabello -: History of [place] with stent placement-2011 -: History of testicular carcinoma with mets in 1992. -: History of kidney cancer requiring nephrectomy in 2000 -: History of bladder cancer in 2013, urology-Dr. Pérez -: GERD -: Chronic kidney disease, Nephrology-Dr. Hernández -: Tobacco abuse -: Alcohol abuse -: Appendectomy-1976 -: Left-sided orchiectomy-1992 -: Abdominal lymph node resection -: Bilateral tendon repair -: left renal/adrenal gland removed -: Left kidney removed Psychosocial/ Personal History: of 34 years. Has 3 children. 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 moist/pink, EOMI, Sclerae nonicteric Neck: Supple, 2+ carotid pulse no bruit, No LAD, Without JVD or thyroid abnormality Respiratory: Clear to auscultation bilaterally, Normal air movement Cardiovascular: Regular rate/rhythm, Normal S1 S2 Gastrointestinal: Normal bowel sounds, Tenderness Musculoskeletal: No tenderness Integumentary: No rashes Neurological: Normal speech, Normal strength at 5/5 x4 extr, Normal tone, Normal affect Lymphatics: No axilla or inguinal lymphadenopathy - Studies Laboratory Data (last 24 hrs) 12/27/18 20:20: PT 10.6, INR 0.89 12/27/18 20:20: WBC 15.3 H D, Hgb 13.3 L, Hct 39.2 L, Plt Count 299 12/27/18 20:20: Sodium 127 L, Potassium 3.2 L, BUN 29 H, Creatinine 1.63 H, Glucose 113 H, Magnesium 2.2, Total Bilirubin 0.6, AST 16, ALT 24, Alkaline Phosphatase 85, Lipase 38942 H Assessment and Plan - Problems (Diagnosis) (1) Acute kidney injury superimposed on CKD Current Visit: Yes Status: Acute (2) Hypertension Onset Date: 08/30/17 Current Visit: No Status: Chronic Qualifiers: Hypertension type: essential hypertension (3) Lung mass Current Visit: No Status: Acute (4) Pancreatic mass Current Visit: No Status: Acute (5) Renal mass Current Visit: No Status: Acute (6) Tobacco abuse Onset Date: 03/04/16 Current Visit: No Status: Chronic - Plan The patient will be admitted to the hospital due to acute pancreatitis. Biliary enzymes are within normal limits, despite he has gallstones. This might be related to pancreatic mass making external external obstruction. Will order MRCP to have better evaluation. The patient and her caregiver, already refused to be transfer to [place] for further higher level of care if is necessary. - Advance Directives Does patient have a Living Will: No Does patient have a Durable POA for Healthcare: No - Code Status/Comfort Care Code Status Assessed: Yes Code Status: Full Code
[2018-12-28] MEDS ORDERED: ONDANSETRON 4 MG/2 ML VIAL IV PRN (01:36)
[2018-12-28] MEDS ORDERED: MORPHINE 2 MG/ML SYR IV PRN (01:36)
[2018-12-28] MEDS: NA CHLORIDE 0.9% 1,000 ML IV SCH ×3 (02:29→18:00)
[2018-12-28 02:56] VITALS: BMI 25.7
--- NOTE | 2018-12-28 05:57 | EKG ---
Test Date: 2018-12-27 Test Time: 12:16:48 Plumber Apprentice: SHANNAN MEASUREMENT RESULTS: Intervals: Rate: 69 WA: 128 QRSD: 86 QT: 410 QTc: 439 [place]: P: 73 WA: 128 QRS: 75 T: 78 INTERPRETIVE STATEMENTS: Normal sinus rhythm Normal ECG Compared to ECG 12/18/2018 14:35:32 No significant changes Electronically Signed On 12-28-18 05:56:22 CDT by Nic Cabello
--- NOTE | 2018-12-28 09:32 | EKG ---
Test Date: 2018-12-27 Test Time: 18:55:26 Marketing Instructor: LAKISHA MEASUREMENT RESULTS: Intervals: Rate: 52 NE: 158 QRSD: 88 QT: 462 QTc: 429 [place]: P: 76 NE: 158 QRS: 81 T: 82 INTERPRETIVE STATEMENTS: Sinus bradycardia Otherwise normal ECG Compared to ECG 12/27/2018 12:16:48 Sinus rhythm no longer present Electronically Signed On 12-28-18 09:31:12 CDT by Nic Cabello
[2018-12-28] MEDS: KCL 20 MEQ/100 mL IVPB 20 MEQ/100 ML BAG IV SCH ×2 (09:39→14:25)
--- NOTE | 2018-12-28 09:57 | RAD REPORT ---
EXAM DESCRIPTION: CT - Chest Abd Pelvis Wo Con - 12/27/2018 11:04 pm CLINICAL HISTORY: Abdominal distention;Cough;Chest pain COMPARISON: 12/20/2018 TECHNIQUE: CT of the chest, abdomen and pelvis performed without contrast. Suboptimal evaluation of the vasculature and solid organs due to lack of IV contrast. Oral contrast administered. DLP: 1092.4 mGycm FINDINGS: Chest: Thyroid: No abnormalities of the visualized thyroid. Great Vessels: Great vessels have normal anatomic configuration. Thoracic Aorta: Atherosclerotic calcification of the thoracic aorta. Pulmonary arteries: The main pulmonary artery is not dilated. Heart: Coronary artery atherosclerosis. No significant pericardial effusion or cardiomegaly. Lymph Nodes: Enlarged paratracheal subcarinal and right hilar lymph nodes. A open claims representative right par atracheal lymph node measures 2.2 x 3.0 cm and is stable in appearance. Stable 3.4 x 2.2 cm right hil ar mass. Esophagus: No abnormalities of the esophagus identified Other: No additional findings. Lungs: Centrilobular emphysematous change. Stable pleural-based superior segment right lower lobe mas s measuring 4.0 x 2.4 cm with smaller satellite nodular opacities. There are also smaller pleural-bas ed polypoid nodule inferior to the largest structure that are stable in appearance measuring 2.1 x 1. 2 1.0 x 2.2 cm. Mild bronchovascular interstitial opacities in the right lower lobe. Pleura: No pleural effusion or pneumothorax. Trachea/Airways: No abnormalities of the visualized trachea or airways. Abdomen: Liver: The liver has normal size and density. Caudate lobe cyst measuring 2.2 cm. Gallbladder: Calcified gallstones identified. Spleen, Pancreas, and Adrenal Glands: Peripancreatic fat stranding. No well-circumscribed peripancr eatic fluid collection. Adrenal glands and spleen are unremarkable. Kidneys: Prior left nephrectomy. Postoperative change in the periaortic regions. Exophytic lobulate d structure arising from the inferior pole of the right kidney is stable measuring 3.0 cm. No hydrone phrosis. Vasculature: Aortoiliac atherosclerosis. IVC is unremarkable. Stomach: The stomach and duodenum have normal course. Other: No free intraperitoneal air. Small fat-containing ventral hernia. No free fluid or lymphaden opathy. Pelvis: Bladder: Urinary bladder is unremarkable. Bowel: No dilated loops of large or small bowel. Appendix: Not identified. Pelvis: Soft tissue nodule in the left pelvis measuring 2.1 x 1.3 cm stable adenopathy. Bones: Endplate spondylosis and facet arthropathy with degenerative disc height narrowing at L2/3 IMPRESSION: 1. Fat stranding adjacent to the head of the pancreas. These findings could be seen with pancreatitis. 2. Cholelithiasis. 3. Stable 3.4 cm right hilar mass concerning for neoplasm with mediastinal and hilar metastatic lymph adenopathy again identified. 4. Stable polypoid pleural-based nodules in the right lower lobe which may be related to infectious/i nflammatory process however, metastatic disease remains a possibility. 5. Stable 3.0 cm exophytic solid structure arising from the inferior pole of the right kidney concern ing for renal cell carcinoma. 6. Stable left pelvic nodule likely representing lymphadenopathy measuring 2.1 cm. 7. Centrilobular emphysematous changes. This exam was performed according to our departmental dose-optimization program, which includes autom ated exposure control, adjustment of the mA and/or kV according to patient size and/or use of iterati ve reconstruction technique. Electronically signed by: Duc Arora 12/27/2018 10:54 PM CDT Due to temporary technical issues with the PACS/Fluency reporting system, reports are being signed by the in house radiologist as a courtesy to ensure prompt reporting. The interpreting radiologist is f ully responsible for the content of the report.
--- NOTE | 2018-12-28 11:15 | RAD REPORT ---
EXAM DESCRIPTION: MRI - Cholangiogram - 12/28/2018 10:50 am CLINICAL HISTORY: pancreatitis COMPARISON: Abdomen WWo Cont dated 12/20/2018; Abdomen Wo Cont dated 05/25/2017; Abdomen Wo Cont dated 05/19/2016 FINDINGS: Three-dimensional MRCP was performed using maximum intensity projection reconstruction on the same work station. No intrahepatic biliary tree dilatation is seen. The common bile duct is normal caliber without evide nce of retained stone, stricture or mass. The pancreatic duct is not pathologically dilated. Stone is present in the gallbladder. The pancreas appears mildly edematous. Mass in the right kidney again noted measuring 2.5 cm, incompletely characterized this study. IMPRESSION: No significant biliary tree dilatation. Cholelithiasis.
[2018-12-28] MEDS ORDERED: HOME MED 1 EA UNK (Ipratropium/Albuterol Sulfate [Iprat-Albut 0.5-3(2.5) Mg/3 Ml] 3 ML) IH PRN (12:22)
[2018-12-28 12:24] LABS: Urine Appearance CLEAR; Urine Bilirubin NEGATIVE (NEG); Urine Blood NEGATIVE (NEG); Urine Color YELLOW; Urine Glucose NEGATIVE (NEG); Urine Protein 1+ (NEG); Urine Urobilinogen 0.2 mg/dL (0.2-1.0)
[2018-12-28 12:29] LABS: Urine Microscopic Reflex ORDER UMIC
[2018-12-28 12:41] LABS: Urine Bacteria <20 /HPF (NONE SEEN); Urine Culture Reflex Order NOT NEEDED; Urine RBC <5 /HPF (NONE SEEN)
[2018-12-28] MEDS ORDERED: ALBUTEROL 2.5 MG/3 ML NEB SOL IH PRN ×2 (12:41→13:00)
[2018-12-28] MEDS ORDERED: IPRATROPIUM BROM 0.5MG/2.5ML IH PRN ×2 (12:41→13:00)
--- NOTE | 2018-12-28 17:19 | PN ---
Date of Progress Note: 12/28/2018 Subjective: The patient is seen and examined. Chart reviewed and case discussed with RN. The patie nt seems to be in pain, did not want to be examined. Also requested us to leave his room and to leav e him alone. Initially, no family was present at the bedside. I did speak with the in detail l ater on when the patient was down in MRCP. Medications: List reviewed. Physical Examination: Vital Signs: Temperature 97.3, heart rate 69, blood pressure 129/70, respirations 18, O2 96% on room air. General: Asleep but arousable, in mild distress due to pain. CV: S1, S2. Regular rate and rhythm. Respiratory: The patient refused to be examined. Gastrointestinal: Abdomen is soft. Mild tenderness to palpation. No rebound or guarding. Positive bowel sounds. Rest of the examination was refused by the patient. Laboratory Data: Potassium 3.3, lipase 3181. MRCP shows no significant biliary tree dilatation. Al so shows cholelithiasis. Assessment: 1.Acute kidney injury superimposed on chronic kidney disease stage 3. 2.Epigastric pain. CT scan shows gallstones. MRCP did not show any biliary obstruction. Did show gallstones. Dr. Gaffney with GI has been consulted. 3.Acute pancreatitis of unclear etiology, may have recently passed a stone. MRCP is negative for an y ductal stones. Lipase is trending down, currently at 3000. We will continue to monitor. We will check triglyceride level. 4.Essential hypertension. We will resume home medications as appropriate. 5.Lung mass. The patient was scheduled to have lung biopsy, however, was delayed due to his current condition, unknown primary. 6.Right renal mass. states that the patient has had a biopsy previously and is being monitored . Follows with [facility]. He has had history of previous nephrectomy for renal uvaldo l carcinoma. 7.History of bladder cancer. The patient follows with Dr. Pérez with routine cystoscopies. 8.Nicotine dependence with cigarette smoking. We will domestic violence counselor once the patient is cooperative with history taking. 9.Coronary artery disease status post stent. 10.Mixed hyperlipidemia. Continue statin. 11.Gastroesophageal reflux disease. 12.Chronic kidney disease stage 3. Follows with Dr. Hernández. 13.Deep venous thrombosis prophylaxis with SCDs. Plan: Consult GI. The patient may need surgical consultation for symptomatic cholelithiasis. No si gns of acute cholecystitis at this time. Resume home medications as appropriate. Advance diet. Anthonye ralalma, poor prognosis. SA/MODL Voice ID: [id number] Report ID: [id number]
[2018-12-28] MEDS: FLUDROCORTISONE 0.1 MG TAB PO SCH (20:51)
[2018-12-28] MEDS: ATORVASTATIN 80 MG TAB PO SCH (20:51)
[2018-12-28] MEDS: DEXAMETHASONE 4 MG TAB PO SCH (20:51)
[2018-12-28] MEDS: PANTOPRAZOLE 40MG TABLET PO SCH (20:51)
[2018-12-28] MEDS: METOPROLOL TAR 50 MG TAB PO SCH (20:51)
[2018-12-28] MEDS: levETIRAcetam 500 MG TAB PO SCH (20:51)
[2018-12-29] MEDS: NA CHLORIDE 0.9% 1,000 ML IV SCH ×3 (01:12→18:00)
[2018-12-29 06:33] LABS: Absolute Monocytes 1.1 K/uL (0.1-1.3); Absolute Neutrophil 10.2 K/uL (1.8-8.0); Basophils % 0.4 % (0-1.3); Eosinophils % 0.9 % (0-4.4); Hematocrit 39.3 % (39.6-49.0); Lymphocytes % 8.2 % (15.3-44.8); MPV 7.7 fL (7.6-11.3); Monocytes % 8.9 % (3.3-12.3); RBC Red Blood Cell Count 4.19 M/uL (4.33-5.43)
[2018-12-29 07:08] LABS: Albumin 3.3 g/dL (3.4-5.0); Bilirubin Total 1.1 mg/dL (0.2-1.0); Magnesium 2.2 mg/dL (1.8-2.4); Potassium 3.5 mmol/L (3.5-5.1); Protein, Total 6.6 g/dL (6.4-8.2)
[2018-12-29] MEDS ORDERED: KCL 20 MEQ/100 mL IVPB 20 MEQ/100 ML BAG IV SCH (08:00)
[2018-12-29] MEDS: CETIRIZINE HCL 5 MG TABLET PO SCH (08:09)
[2018-12-29] MEDS: METOPROLOL TAR 50 MG TAB PO SCH ×2 (08:09→20:30)
[2018-12-29] MEDS: levETIRAcetam 500 MG TAB PO SCH ×2 (08:09→20:28)
[2018-12-29] MEDS: AMLODIPINE 5 MG TAB PO SCH (08:09)
[2018-12-29] MEDS: PANTOPRAZOLE 40MG TABLET PO SCH ×2 (08:10→20:30)
[2018-12-29] MEDS: DEXAMETHASONE 4 MG TAB PO SCH ×2 (10:01→20:29)
--- NOTE | 2018-12-29 14:04 | P.PN ---
Subjective Date of Service: 12/29/18 Chief Complaint: pancreatitis Subjective: Improving (Less abdominal pain. Urinating frequently. Lipase declined some since yesterday to 2,397 (still elevated) and started on CLs already today.) Review of Systems 10-point ROS is otherwise unremarkable General: Weakness, Malaise Gastrointestinal: Nausea, Abdominal Pain Physical Examination - Vital Signs Temperature: 98.0 F Blood Pressure: 138/78 Pulse: 70 Respirations: 18 Pulse Ox (%): 98 - Physical Exam General: Alert, In no apparent distress, Oriented x3, Cooperative HEENT: Atraumatic, Normocephalic, PERRLA, EOMI Neck: Supple Respiratory: Diminished Cardiovascular: Normal pulses Gastrointestinal: No rebound, Tenderness (improved), Guarding (mild guarding) Neurological: Normal speech Assessment And Plan - Current Problems (Diagnosis) (1) Pancreatitis, acute Current Visit: Yes Status: Acute Comment: Etiology unclear. Quit heavy EtOH ~ 1 week ago & imaging reveals gallstones in GB. 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 (2) Epigastric abdominal pain Current Visit: Yes Status: Acute Comment: Improved. (3) Nausea Current Visit: Yes Status: Acute Comment: Improved. - Plan REC: 1) continue IVFs, though not aggressive with probable new diagnosis of CHF 2) check echocardiogram since BNP elevated at 908 without prior h/o CHF 3) limited liquids only (no jello nor broth today) 4) monitor labs
--- NOTE | 2018-12-29 15:48 | PN ---
Date of Progress Note: 12/29/2018 Subjective: Patient was seen and examined, chart reviewed and case discussed with RN and Dr. Liberty frederick. The patient is stating that he did not get much sleep last night. No significant complaints of p ain. Medications: List reviewed. Physical Examination: Vital Signs: Temperature 98.2, heart rate 83, blood pressure 148/74, respirations 18, O2 99% on room air. General: Awake, alert, and oriented x3, not in any acute distress. Appears older than stated age, i ll-appearing male. CV: S1, S2. Regular rate and rhythm. Peripheral pulses present. Respiratory: Moving air well bilaterally, no wheezing. Gastrointestinal: Abdomen is soft. Mild tenderness to palpation. No rebound or guarding. Positive bowel sounds. Extremities: No clubbing, cyanosis, or edema. No calf tenderness. Neurologic: Nonfocal. Laboratory Data: Sodium 134, potassium 3.5, chloride 101, CO2 25, BUN 20, creatinine 1.55, glucose 7 9, calcium 8.7, magnesium 2.2. Lipase is 2397. WBC 12.5, H and H 13.5 and 39.3, platelets 292, neut rophils 81%. Assessment And Plan: A 68-year-old male with; 1.Acute pancreatitis, unclear etiology. MRCP is negative. Lipase trending down. GI has been consu lted. Continue IV fluids, pain control. No longer nauseated or vomiting. Start on clear liquid t in order to pursue early reintroduction of p.o. intake per recommendations. 2.Epigastric pain likely secondary to above, improved. No further nausea or vomiting. 3.Acute kidney injury on chronic kidney disease stage 3. Continue to monitor creatinine currently a t baseline. 4.Essential hypertension stable on home medications. 5.Lung mass, likely cancerous. Biopsy was delayed due to his current symptoms. 6.Right renal mass. Follows with [facility]. 7.History of bladder cancer, stable. Follows with Urology as outpatient. 8.Nicotine dependence with cigarette smoking, counseled. 9.Coronary artery disease status post stent. 10.Mixed hyperlipidemia. We will continue statin. 11.Gastroesophageal reflux disease. Continue home medications. 12.Deep venous thrombosis prophylaxis with SCDs. Plan: Advance diet. Follow up on lipase level. /LOULOU Voice ID: [id number] Report ID: [id number]
[2018-12-29] MEDS: ATORVASTATIN 80 MG TAB PO SCH (20:28)
[2018-12-29] MEDS: FLUDROCORTISONE 0.1 MG TAB PO SCH (20:29)
[2018-12-30] MEDS: NA CHLORIDE 0.9% 1,000 ML IV SCH ×5 (03:53→21:29)
[2018-12-30 05:43] LABS: Absolute Lymphocytes (CBC) 0.6 K/uL (0.7-4.9); Absolute Monocytes 0.3 K/uL (0.1-1.3); Absolute Neutrophil 8.9 K/uL (1.8-8.0); Basophils % 0.4 % (0-1.3); Hematocrit 36.1 % (39.6-49.0); Lymphocytes % 5.8 % (15.3-44.8); Monocytes % 2.6 % (3.3-12.3); RBC Red Blood Cell Count 3.85 M/uL (4.33-5.43)
[2018-12-30 05:57] LABS: Potassium 3.9 mmol/L (3.5-5.1)
[2018-12-30 08:26] LABS: Blood Morphology Comment NOTED (NOT SEEN); Platelet Estimate ADEQ; Poikilocytosis SLIGHT; Urine White Blood Cell Casts OK
[2018-12-30 08:27] LABS: Burr Cells FEW
[2018-12-30] MEDS ORDERED: POTASSIUM CL SA 10 MEQ TAB PO ONE (09:00)
[2018-12-30] MEDS: CETIRIZINE HCL 5 MG TABLET PO SCH (09:37)
[2018-12-30] MEDS: levETIRAcetam 500 MG TAB PO SCH ×2 (09:37→21:24)
[2018-12-30] MEDS: AMLODIPINE 5 MG TAB PO SCH (09:38)
[2018-12-30] MEDS: METOPROLOL TAR 50 MG TAB PO SCH ×2 (09:38→21:25)
[2018-12-30] MEDS: DEXAMETHASONE 4 MG TAB PO SCH ×2 (09:39→21:25)
[2018-12-30] MEDS: PANTOPRAZOLE 40MG TABLET PO SCH ×2 (09:39→21:23)
--- NOTE | 2018-12-30 14:01 | PN ---
Date of Progress Note: 12/30/2018 Subjective: The patient seen and examined. Chart reviewed and case discussed with RN. The patient denies any abdominal pain. No nausea or vomiting. The patient has been going downstairs to smoke de spite I was offering him nicotine patches and reminding him that he needs to be on IV fluids and he s hould not leave the floor, especially should not smoke. The patient had left the building yesterday and was found wandering in the streets by police and was brought back. The patient states that he wa s intending to leave. He understands that he can leave against medical advice at any time. However, his had convinced him to stay. Medications: List reviewed. Physical Examination: Vital Signs: Temperature 97.5, heart rate 67, blood pressure 131/79, respirations 18, O2 98% on room air. General: Awake, alert, oriented x3, not in any acute distress. Appears older than stated age, ill-a ppearing male. CV: S1 and S2. Regular rate and rhythm. Peripheral pulses present. Respiratory: Moving air well bilaterally. No wheezing. Gastrointestinal: Abdomen is soft, nontender, nondistended. Positive bowel sounds. Extremities: No clubbing, cyanosis, or edema. Neurologic: Nonfocal. Laboratory Data: Sodium 131, potassium 3.9, chloride 100, CO2 23, BUN 17, creatinine 1.22, glucose 1 54, calcium 8.4. GGT is pending. Lipase 683. WBC 9.8, H and H 12.6 and 36.1, platelets 262. Assessment And Plan: A 68-year-old male with: 1.Acute pancreatitis, likely secondary to alcohol. MRCP negative for obstruction. Lipase is down t o 600. We will advance to full liquid diet. Appreciate GI input. The patient does not have any juan [place], vomiting, or abdominal pain. 2.Epigastric pain, resolved, secondary to above. 3.Incidental cholelithiasis. 4.Spwez-pg-yhbdbuw kidney injury stage 3. Creatinine back to baseline, now currently normalized. 5.Hyponatremia. We will adjust IV fluids. Continue to monitor. 6.Essential hypertension, stable on home medications. 7.Lung mass, likely malignant. The patient's biopsy will be rescheduled as outpatient. 8.Right renal mass under surveillance with [facility]. 9.History of bladder cancer, stable. 10.Nicotine dependence with cigarette smoking, counseled. 11.Coronary artery disease, status post stent. 12.Mixed hyperlipidemia. We will continue statin. 13.Gastroesophageal reflux disease without esophagitis. Continue PPI. 14.Deep venous thrombosis prophylaxis with SCDs. The patient is ambulating. Plan: Likely discharge in the next 24 hours if condition continues to improve and patient able to to lerate a GI soft diet. /LOULOU Voice ID: [id number] Report ID: [id number]
[2018-12-30] MEDS: FLUDROCORTISONE 0.1 MG TAB PO SCH (21:22)
[2018-12-30] MEDS: ATORVASTATIN 80 MG TAB PO SCH (21:23)
[2018-12-31] MEDS: NA CHLORIDE 0.9% 1,000 ML IV SCH ×3 (02:00→17:55)
[2018-12-31 05:59] LABS: Absolute Lymphocytes (CBC) 0.6 K/uL (0.7-4.9); Absolute Monocytes 0.3 K/uL (0.1-1.3); Absolute Neutrophil 7.3 K/uL (1.8-8.0); Basophils % 0.2 % (0-1.3); Hematocrit 34.8 % (39.6-49.0); Lymphocytes % 6.8 % (15.3-44.8); MPV 7.9 fL (7.6-11.3); RBC Red Blood Cell Count 3.76 M/uL (4.33-5.43)
[2018-12-31 06:03] LABS: Potassium 3.6 mmol/L (3.5-5.1)
[2018-12-31] MEDS ORDERED: POTASSIUM 25 MEQ EFFERV TAB PO ONE (09:00)
--- NOTE | 2018-12-31 09:11 | CON ---
Date of Consultation: 12/28/2018 Reason For Consultation: Gallstones and pancreatitis. History Of Present Illness: This is a case of a 68-year-old patient, admitted to the hospital yester day with a history of abdominal pain. Apparently he has been treated and been worked up before for m ultiple lesions in his body suspicious for metastatic disease. The patient was found to have pancrea titis and a surgical consult was obtained. He feels better right now. He denies any dysuria, hematu bisi, hematochezia, or melena. Denies any recent travelling out of the country. Denies any family me mber sick at home. Allergies: LEVAQUIN. Medications: Reviewed including Protonix, albuterol. Past Medical History: Include bladder cancer, MIs, testicular cancer. Past Surgical History: Include left orchiectomy, cardiac stent, and nephrectomy. Review of Systems: Ten-points otherwise unremarkable. Physical Examination: General: The patient is awake and alert. HEENT: Pupils anicteric. Neck: Supple. Chest: Clear. Abdomen: Soft and depressible. Mild epigastric tenderness. No rebound. Extremities: Good capillary refill. Laboratory Data: Blood work shows WBC count of 15.3, with hemoglobin of 13.3, and platelets of 299 w ith INR of 0.89. LFTs were in normal limits. Lipase from today. Chest, abdomen and pelv is CT interpreted by has fat stranding in the head of the pancreas consistent with petersen creatitis, cholelithiasis, neoplasm 3.4 cm in the chest area. A lesion on the right kidney may be co nsistent with a tumor. MRCP done and interpreted biliary tree dilatation. Once again , a right kidney mass . Assessment: This is a 68-year-old patient with pancreatitis of unknown origin. Right now, even thou gh he has gallstones, we do not see any block in the common bile duct of the pancreas. At this moment, we will do the gallbladder electively continue with the rest of the workup a t this moment. When the pancreas improve, then we will start some diet. We will follow the patient with you. We will give more recommendations as case develop. MARIA EUGENIA/LOULOU Voice ID: [id number] Report ID: [id number]
[2018-12-31] MEDS: CETIRIZINE HCL 5 MG TABLET PO SCH (10:08)
[2018-12-31] MEDS: PANTOPRAZOLE 40MG TABLET PO SCH ×2 (10:09→21:28)
[2018-12-31] MEDS: levETIRAcetam 500 MG TAB PO SCH ×2 (10:09→21:26)
[2018-12-31] MEDS: DEXAMETHASONE 4 MG TAB PO SCH ×2 (10:09→21:27)
[2018-12-31] MEDS: AMLODIPINE 5 MG TAB PO SCH (10:10)
[2018-12-31] MEDS: METOPROLOL TAR 50 MG TAB PO SCH ×2 (10:10→21:28)
--- NOTE | 2018-12-31 11:31 | ECHO ---
HEIGHT: 5 ft 11 in WEIGHT: 185 lb 0 oz DATE OF STUDY: 12/31/[address]: Raj Andrade MD 2-DIMENSIONAL: YES M.MODE: YES DOPPLER: YES COLOR FLOW: YES TDS: YES PORTABLE: NO DEFINITY: NO BUBBLE STUDY: NO DIAGNOSIS: CONGESTIVE HEART FAILURE CARDIAC HISTORY: CATHERIZATION: YES SURGERY: NO PROSTHETIC VALVE: NO PACEMAKER: NO MEASUREMENTS (cm) DIASTOLIC (NORMALS) SYSTOLIC (NORMALS) IVSd 0.9 (0.6-1.2) LA Diam (1.9-4.0) LVEF 60-69% LVIDd 3.6 (3.5-5.7) LVIDs (2.0-3.5) %FS % LVPWd 1.1 (0.6-1.2) Ao Diam 2.8 (2.0-3.7) 2 DIMENSIONAL ASSESSMENT: RIGHT ATRIUM: NORMAL LEFT ATRIUM: NORMAL RIGHT VENTRICLE: NORMAL LEFT VENTRICLE: NORMAL TRICUSPID VALVE: NORMAL MITRAL VALVE: NORMAL PULMONIC VALVE: NORMAL AORTIC VALVE: NORMAL PERICARDIAL EFFUSION: NONE AORTIC ROOT: NOMRAL LEFT VENTRICULAR WALL MOTION: NORMAL. DOPPLER/COLOR FLOW: TECHNICALLY DIFFICULT STUDY. COMMENTS: NORMAL LEFT VENTRICULAR EJECTION FRACTION. TECHNICALLY DIFFICULT STUDY. TECHNOLOGIST: ANKUR ROMAN
--- NOTE | 2018-12-31 12:21 | P.PN ---
Subjective Date of Service: 12/31/18 Chief Complaint: pancreatitis Subjective: Improving (Patient is doing much better eating and drinking denies any abdominal pain admitted with pancreatitis) Review of Systems General: Weakness Respiratory: Shortness of Breath Physical Examination - Vital Signs Temperature: 97.9 F Blood Pressure: 162/86 Pulse: 66 Respirations: 18 Pulse Ox (%): 100 - Physical Exam General: Alert, Oriented x3 HEENT: Atraumatic Neck: Supple Cardiovascular: No edema, Regular rate/rhythm Gastrointestinal: Normal bowel sounds, Soft and benign Assessment & Plan - Problems (Diagnosis) (1) Lung mass Current Visit: No Status: Acute Plan: Patient is 68 years of age admitted with pancreatitis is clinically improving is not eating and drinking abdominal pain has resolved from the patient will plan to schedule him for a bronchoscopy tomorrow if cleared by cardiology rest and benefit of the procedure is explained and he agrees no chest pain hemodynamically stable oxygenation satisfactory lipase is decreased significantly patient is eating and drinking
--- NOTE | 2018-12-31 13:18 | P.PN ---
Subjective Date of Service: 12/31/18 Chief Complaint: pancreatitis Subjective: Improving (No abdominal pain nor nausea today. Tolerated CLs. Lipase down from 2-3,000 to under 1,000 now for past 2 days with slight increase from yesterday with advancement in diet to FLs. Pulmonary consulted for probable lung neoplasia with possible met to brain. Echocardiogram done today with new finding of elevated BNP at 908 without prior CHF diagnosis.) Review of Systems 10-point ROS is otherwise unremarkable General: Weakness (Improved.), Malaise (Improved.) Physical Examination - Vital Signs Temperature: 97.9 F Blood Pressure: 162/86 Pulse: 66 Respirations: 18 Pulse Ox (%): 100 - Physical Exam General: Alert, In no apparent distress, Oriented x3, Cooperative HEENT: Atraumatic, Normocephalic, PERRLA, EOMI Neck: Supple Respiratory: Normal air movement Cardiovascular: Normal pulses Gastrointestinal: Soft and benign, No tenderness, No rebound, No guarding Neurological: Normal speech, Normal strength at 5/5 x4 extr Assessment And Plan - Current Problems (Diagnosis) (1) Pancreatitis, acute Current Visit: Yes Status: Acute Comment: Etiology unclear. Quit heavy EtOH ~ 1 week ago & imaging reveals gallstones in GB. 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 (2) Epigastric abdominal pain Current Visit: Yes Status: Acute Comment: Improved. (3) Nausea Current Visit: Yes Status: Acute Comment: Improved. - Plan REC: 1) continue IVFs, though not aggressive with probable new diagnosis of CHF 2) await echocardiogram since BNP elevated at 908 without prior h/o CHF 3) await pulmonology work-up 4) monitor labs
--- NOTE | 2018-12-31 17:23 | CON ---
History Of Present Illness: Mr. Brizuela is 68. I am asked to do a consult to see if he is a suitabl e candidate for undergoing a bronchoscopy with biopsy. Mr. Brizuela has a history of coronary heart d isease, he had stents, it was quite a number of years ago. Now, he has multiple masses, many questi ons about what actually is wrong; there may be 2 different primaries, pulmonary and renal, maybe one with multiple metastases and a biopsy is needed to make this determination. When this was scheduled, he was having chest pain, MN was ruled out. We ordered a stress test, but it was not done because h nadia was rehospitalized and it was apparent that his pain was all from pancreatitis. His pancreatitis h as now resolved. He is not having chest pain, not having EKG changes and echocardiogram today looks quite good, normal ejection fraction. So I believe Mr. Brizuela is an acceptable candidate for [facility] anesthesia, bronchoscopy and biopsy. TERESA/LOULOU Voice ID: [id number] Report ID: [id number]
--- NOTE | 2018-12-31 18:14 | PN ---
Date of Progress Note: 12/31/2018 Subjective: The patient is seen and examined. Chart reviewed and case discussed with RN and Dr. Eulalio montano. The patient is doing well, tolerating his full liquid diet, not having any nausea, vomiting. A bdominal pain has resolved. Medications: List reviewed. Physical Examination: Vital Signs: Temperature 97.9, heart rate 66, blood pressure 162/86, respirations 18, O2 100% on katrina m air. General: Awake, alert, oriented x3. Elderly male, ill appearing. CV: S1, S2. Peripheral pulses present. Regular rate and rhythm. Respiratory: Moving air well bilaterally. No wheezing or stridor. Gastrointestinal: Abdomen is soft, nontender, nondistended. Positive bowel sounds. Extremities: No clubbing, cyanosis, or edema. Neurologic: Nonfocal. Laboratory Data: Sodium 130, potassium 3.6, chloride 99, CO2 23, BUN 16, creatinine 1.16, glucose 15 2, calcium 8.3. Lipase is 763. WBC 8.2, H and H 12.1, 34.8, platelets 278, neutrophils 89%. Echoca rdiogram shows EF of 60% to 69%. Assessment And Plan: A 68-year-old male with: 1.Acute pancreatitis, likely alcohol related. Lipase is slightly up from yesterday; however, the pa tient's symptoms have significantly improved. No further nausea or vomiting. Tolerating full liquid diet. The patient does not have any ductal stones shown on MRCP. Dr. Gaffney on board. We will adv ance to GI soft if okay with Dr. Gaffney. 2.Epigastric pain, resolved, secondary to above. 3.Incidental cholelithiasis. Appreciate Dr. Sanon's input. We will need elective cholecystectom y likely as outpatient. 4.Acute on chronic kidney injury stage 3. Creatinine is back to baseline, currently normalized. 5.Hyponatremia. The patient is currently on normal saline. We will continue to monitor. 6.Essential hypertension, stable on home medications. 7.Lung mass, likely malignant. Dr. Marx has scheduled for bronchoscopy in a.m. 8.Right renal mass under surveillance at [facility]. 9.History of bladder cancer, treated in the past, stable. 10.Nicotine dependence with cigarette smoking, counseled. Continue nicotine patch. 11.Coronary artery disease, [place] artery and [place] heart, status post stent without angina, stable . 12.Mixed hyperlipidemia. We will continue statin. 13.Gastroesophageal reflux disease without esophagitis. Continue PPI. 14.Deep venous thrombosis prophylaxis with SCDs. Encourage ambulation. The patient is cleared from Cardiology standpoint for bronchoscopy in a.m. Discharge once tolerating a GI soft diet. We will d iscuss further with GI. SA/MODL Voice ID: [id number] Report ID: [id number]
[2018-12-31] MEDS: FLUDROCORTISONE 0.1 MG TAB PO SCH (21:29)
[2018-12-31] MEDS: ATORVASTATIN 80 MG TAB PO SCH (21:31)
[2019-01-01] MEDS: NA CHLORIDE 0.9% 1,000 ML IV SCH ×2 (02:23→10:00)
[2019-01-01 06:04] LABS: Absolute Lymphocytes (CBC) 0.6 K/uL (0.7-4.9); Absolute Monocytes 0.4 K/uL (0.1-1.3); Absolute Neutrophil 7.9 K/uL (1.8-8.0); Basophils % 0.4 % (0-1.3); Hematocrit 35.4 % (39.6-49.0); Lymphocytes % 6.8 % (15.3-44.8); MPV 7.4 fL (7.6-11.3); RBC Red Blood Cell Count 3.85 M/uL (4.33-5.43)
[2019-01-01 06:17] LABS: Potassium 3.5 mmol/L (3.5-5.1)
[2019-01-01] MEDS ORDERED: Phenylephrine HCl 10 MG/ML 1 ML VIAL ONE (07:17)
[2019-01-01] MEDS ORDERED: LIDOCAINE 4% TOP SOLUTION ONE (07:18)
[2019-01-01] MEDS ORDERED: LIDOCAINE 1% MPF 30 ML VIAL ONE (07:18)
[2019-01-01] MEDS ORDERED: GLYCOPYRROLATE 0.2 MG/ML SYR ONE (07:18)
[2019-01-01] MEDS ORDERED: PROPOFOL 200 MG/20 ML VIAL IV ONE (07:55)
[2019-01-01] MEDS ORDERED: LIDOCAINE 1% MPF 5 ML VIAL ONE (07:55)
[2019-01-01] MEDS ORDERED: KCL 20 MEQ/100 mL IVPB 20 MEQ/100 ML BAG IV SCH (08:00)
[2019-01-01 08:40] VITALS: O2SAT 95
--- NOTE | 2019-01-01 08:44 | RAD REPORT ---
EXAM DESCRIPTION: RAD - Fluoroscopy <1 Hour - 01/01/2019 8:30 am FINDINGS: There were 4 portable C-arm views submitted from a fluoroscopic assisted right os could be of right lower lobe mass. Fluoro time was 114 seconds.
--- NOTE | 2019-01-01 10:29 | RAD REPORT ---
EXAM DESCRIPTION: RAD - Chest Single View - 01/01/2019 10:22 am CLINICAL HISTORY: Post bronchoscopy chest film COMPARISON: Chest film December 27 TECHNIQUE: AP portable chest image was obtained 0957 hours . FINDINGS: No post bronchoscopy pneumothorax. No new pleural or parenchymal finding. Heart and vascul ature are normal. IMPRESSION: No post bronchoscopy pneumothorax identifiable.
[2019-01-01] MEDS ORDERED: POTASSIUM CL SA 10 MEQ TAB PO ONE (10:30)
[2019-01-01] MEDS: PANTOPRAZOLE 40MG TABLET PO SCH (11:12)
[2019-01-01] MEDS: CETIRIZINE HCL 5 MG TABLET PO SCH (11:12)
[2019-01-01] MEDS: METOPROLOL TAR 50 MG TAB PO SCH (11:13)
[2019-01-01] MEDS: AMLODIPINE 5 MG TAB PO SCH (11:13)
[2019-01-01] MEDS: levETIRAcetam 500 MG TAB PO SCH (11:13)
[2019-01-01] MEDS: DEXAMETHASONE 4 MG TAB PO SCH (11:24)
--- NOTE | 2019-01-01 12:02 | P.OP ---
Date of Service: 01/01/19 (Bronchoscopy with endobronchial lung biopsy, BAL and wire brushing) Findings and Operative Technique Patient is 68 years of age evaluated by me for a lung mass he was originally admitted with hyponatremia I was discharged came back again in the hospital with pancreatitis patient has lung mass with mets to the brain as a reason for bronchoscopy Obtaining informed consent from the patient he was premedicated by anesthesia finding normal vocal cords normal trachea normal l left-sided bronchial anatomy normal right upper lobe and a right middle lobe over he did have an endobronchial mass in the right lower lobe lateral segment multiple biopsies were performed patient tolerated the procedure very well did not experience any arrhythmias or hypoxemia postoperative chest x-ray was ordered
[2019-01-01 12:20] VITALS: BP 175/90; TEMP 97.2
--- NOTE | 2019-01-01 16:10 | P.DS ---
Admission Date: 12/28/18 Discharge Date: 01/01/19 Disposition: ROUTINE DISCHARGE Discharge Condition: FAIR Reason for Admission: pancreatitis Consultations: Cardiology Gastroenterology Pulmonology Procedures: 12/28/2018: MRCP 12/31/2018: Echo, normal with ejection fraction of 60-69% 01/01/2019: Bronchoscopy Brief History of Present Illness: Mr Brizuela is a 68 years old male, with history of RCC s/p left nephrectomy. He recently was found to have several masses cencerning for metastatic disease in his colon, pancreas, lung and brain. He had scheduled today a bronchoscopy for lung node biopsy, however, the patient was complaining of chest/abdominal pain, and the procedure was canceled. He came to ER now, because his pain is even worse, now is localized on epigastrium radiated to LUQ. He denied fever or chills. No vomiting but nausea. Lab work shows Leukocytosis 15.3K, hyponatremia and hypochloremia, consistent with volume depletion. Also Hypokalemia [place] [address] abd/pelvis, shows again right renal mass. Gallstones are present as well. Hospital Course: Patient was admitted for acute pancreatitis, likely alcohol related. He was kept NPO, IV fluids were started. The patient underwent MRCP which did not show any ductal stones. GI was consulted. His diet was slowly advanced. Patient did well in regards to his pancreatitis. Prior to discharge, patient was tolerating a GI soft diet. He stated that his symptoms had completely resolved, he denied any nausea or vomiting, abdominal pain. Throughout the stay, patient was found to have incidental cholelithiasis. General surgery was consulted. It was recommended that he get elective cholecystectomy as an outpatient. General surgery information was provided to patient upon discharge. Patient also had acute on chronic kidney injury which resolved and creatinine returned to baseline. Patient was recently at her facility, was found to have multiple lesions, likely metastasis to brain long and GI tract. He was supposed to have a bronchoscopy done as an outpatient, but as he was admitted during this time, the bronchoscopy was done as an inpatient. He has been set up with as a sport oncology center for further workup in regards to his cancer and metastasis. He otherwise remained stable throughout the stay. He was recommended to continue his follow up with Oncology as he has scheduled for this . His diagnoses/treatment plan were explained to patient. All questions were answered and patient verbalized understanding. Overall, patient does have a poor prognosis due to his multiple metastasis secondary to his cancer. He was there was last discharged a safe and stable manner from our facility. He will follow up with his primary care physician and oncology as an outpatient. Vital Signs/Physical Exam: Temp Pulse Resp BP Pulse Ox 97.2 F 68 17 175/90 H 97 01/01/19 12:00 01/01/19 12:00 01/01/19 12:00 01/01/19 12:00 01/01/19 12:00 General: Alert, In no apparent distress, Oriented x3 HEENT: Atraumatic, PERRLA, EOMI Neck: Supple, JVD not distended Respiratory: Clear to auscultation bilaterally, Normal air movement Cardiovascular: Regular rate/rhythm, Normal S1 S2 Gastrointestinal: Normal bowel sounds, No tenderness Musculoskeletal: No tenderness Integumentary: No rashes Neurological: Normal speech, Normal tone, Normal affect Lymphatics: No axilla or inguinal lymphadenopathy Laboratory Data at Discharge: WBC 9.0 K/uL (4.3-10.9) 01/01/19 05:52 Hgb 12.6 g/dL (13.6-17.9) L 01/01/19 05:52 Hct 35.4 % (39.6-49.0) L 01/01/19 05:52 Plt Count 268 K/uL (152-406) 01/01/19 05:52 PT 10.6 SECONDS (9.5-12.5) 12/27/18 20:20 INR 0.89 12/27/18 20:20 Sodium 130 mmol/L (136-145) L 01/01/19 05:52 Potassium 3.5 mmol/L (3.5-5.1) 01/01/19 05:52 BUN 14 mg/dL (7-18) 01/01/19 05:52 Creatinine 1.13 mg/dL (0.55-1.3) 01/01/19 05:52 Glucose 147 mg/dL (74-106) H 01/01/19 05:52 Magnesium 2.2 mg/dL (1.8-2.4) 12/29/18 06:01 Total Bilirubin 1.1 mg/dL (0.2-1.0) H 12/29/18 06:01 AST 20 U/L (15-37) 12/29/18 06:01 ALT 25 U/L (12-78) 12/29/18 06:01 Alkaline Phosphatase 88 U/L (45-117) 12/29/18 06:01 Lipase 1021 U/L (73-393) H 01/01/19 05:52 Home Medications: Cetirizine HCl [Zyrtec*] 10 mg PO DAILY 12/04/13 Vitamin B Complex [B Complex] 1 each PO DAILY 12/04/13 Atorvastatin Calcium [Lipitor] 80 mg PO BEDTIME #30 tablet 03/04/16 Pantoprazole [Protonix Tab*] 40 mg PO BID #60 tab 03/04/16 Metoprolol Tartrate [Lopressor*] 50 mg PO BID 08/26/17 Ascorbic Acid [Vitamin C*] 500 mg PO DAILY 07/08/18 Aspirin [Children's Aspirin] 81 mg PO DAILY 07/08/18 Sodium Chloride 1 gm PO DAILY 07/08/18 Amlodipine [Norvasc*] 5 mg PO DAILY 12/18/18 Cholecalciferol (Vitamin D3) [Vitamin D3] 5,000 unit PO DAILY 12/18/18 Fludrocortisone [Florinef *] 0.1 mg PO BEDTIME 12/18/18 Ipratropium/Albuterol Sulfate [Iprat-Albut 0.5-3(2.5) mg/3 ml] 3 ml IH DAILYPRN PRN 12/18/18 Dexamethasone [Decadron*] 8 mg PO BID 14 Days #56 tab 12/21/18 levETIRAcetam [Keppra*] 250 mg PO BID #60 tab 12/21/18 Docosahexanoic AC/Epa [Fish Oil 1,000 MG*] 2 cap PO DAILY 12/28/18 Patient Discharge Instructions: Please follow up with your primary care physician in 2-3 days. Please make sure to keep your oncology appointment as scheduled. Please return to the ER for worsening symptoms. Diet: GI soft, as tolerated Activity: Ad zoe Followup: David Marx MD [ACTIVE - CAN ADMIT] - ([facility]er. ) Mark Sharp MD [ACTIVE - CAN ADMIT] - (Primary care physician. ) Time spent managing pt's care (in minutes): 55
--- NOTE | 2019-01-01 19:44 | PN ---
Date of Progress Note: 01/01/2019 History Of Present Illness: Mr. Brizuela has been admitted on 12/28/2018. Dr. Cabello cleared him for a bronchoscopy after having normal echocardiogram without any cardiac symptoms and normal EKG. He w ould eventually need a stress test, which was supposed to be done as an outpatient in the office in t he recent past. Unknown cause of his pulmonary nodule, primary maybe renal or pulmonary. Bronchosco py was being done today. HUNTER/LOULOU Voice ID: [id number] Report ID: [id number]
--- NOTE | 2019-01-02 12:08 | P.PN ---
Subjective Date of Service: 01/01/19 Chief Complaint: pancreatitis Subjective: Improving (No abdominal pain, N/V. Feels well. Wants to go home.) Review of Systems 10-point ROS is otherwise unremarkable General: Malaise (Improved.) Physical Examination - Vital Signs Temperature: 97.2 F Blood Pressure: 175/90 Pulse: 68 Respirations: 17 Pulse Ox (%): 97 - Physical Exam General: Alert, In no apparent distress, Oriented x3, Cooperative HEENT: Atraumatic, Normocephalic, PERRLA, EOMI Neck: Supple Respiratory: Normal air movement Cardiovascular: Normal pulses Gastrointestinal: Soft and benign, No tenderness, No rebound, No guarding Neurological: Normal speech, Normal strength at 5/5 x4 extr Assessment And Plan - Current Problems (Diagnosis) (1) Pancreatitis, acute Status: Acute Comment: Etiology unclear. Quit heavy EtOH ~ 1 week ago & imaging reveals gallstones in GB. 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 (2) Epigastric abdominal pain Status: Acute Comment: Improved. (3) Nausea Status: Acute Comment: Improved. - Plan REC: 1) continue IVFs, though not aggressive with probable new diagnosis of CHF 2) await echocardiogram since BNP elevated at 908 without prior h/o CHF 3) await pulmonology work-up 4) monitor labs 5) GI clinic f/u
== END 2019-01-01 13:39 | disposition home or self-care (01) | DRG 988 ==
LOC: ER 18:29 → 2ND 12-28 01:34
PROVIDERS: ADMIT Internal Medicine; ATTEND Family Medicine
PROC: 0BBF8ZX Excision of Right Lower Lung Lobe, Via Natural or Artificial Opening Endoscopic, Diagnostic (ICD-10-PCS; principal; 2019-01-01 07:30)
DX: K85.20 Alcohol induced acute pancreatitis without necrosis or infection (principal); N17.9 Acute kidney failure, unspecified; E87.1 Hypo-osmolality and hyponatremia; C78.01 Secondary malignant neoplasm of right lung; C79.31 Secondary malignant neoplasm of brain; C78.80 Secondary malignant neoplasm of unspecified digestive organ; I12.9 Hypertensive chronic kidney disease with stage 1 through stage 4 chronic kidney disease, or unspecified chronic kidney disease; N18.3 Chronic kidney disease, stage 3 (moderate); K86.9 Disease of pancreas, unspecified; N28.89 Other specified disorders of kidney and ureter; E86.9 Volume depletion, unspecified; E87.8 Other disorders of electrolyte and fluid balance, not elsewhere classified; E87.6 Hypokalemia; E78.5 Hyperlipidemia, unspecified; K21.9 Gastro-esophageal reflux disease without esophagitis; F17.210 Nicotine dependence, cigarettes, uncomplicated; K80.20 Calculus of gallbladder without cholecystitis without obstruction; I25.2 Old myocardial infarction; Z79.82 Long term (current) use of aspirin; Z95.5 Presence of coronary angioplasty implant and graft; Z85.47 Personal history of malignant neoplasm of testis; Z85.51 Personal history of malignant neoplasm of bladder; Z90.5 Acquired absence of kidney; Z90.79 Acquired absence of other genital organ(s)
CPT/HCPCS: 36415; 71045; 71250; 74176; 74181; 76000; 80048; 80053; 80076; 81003; 81015; 82977; 83690; 83735; 83880; 84132; 84484; 85025; 85610; 88108; 88305; 93005; 93306; 96361; 96365; 96367; 96375; 99285; J2250; J2370; J2543; J2704; J3010; J7030

== ENCOUNTER 2019-03-02 06:21 | Inpatient (IN) | payer OTHER, MEDICARE ==
[2019-03-02 06:53] LABS: Urine Appearance CLEAR; Urine Bilirubin NEGATIVE (NEG); Urine Blood NEGATIVE (NEG); Urine Color YELLOW; Urine Glucose NEGATIVE (NEG); Urine Protein 2+ (NEG); Urine Specific Gravity 1.015 (1.005-1.030); Urine Urobilinogen 0.2 mg/dL (0.2-1.0)
[2019-03-02 06:55] LABS: Absolute Lymphocytes (CBC) 0.3 K/uL (0.7-4.9); Eosinophils % 0.2 % (0-4.4); Hematocrit 23.2 % (39.6-49.0); Lymphocytes % 29.6 % (15.3-44.8); MPV 9.1 fL (7.6-11.3); Monocytes % 22.5 % (3.3-12.3); RBC Red Blood Cell Count 2.52 M/uL (4.33-5.43)
[2019-03-02 06:58] LABS: Protime INR 1.83
[2019-03-02] MEDS ORDERED: IPRATROPIUM BROM 0.5MG/2.5ML ONE (06:58)
[2019-03-02] MEDS ORDERED: ACETAMINOPHEN 650MG/RECT SUPP PR ONE (06:59)
[2019-03-02] MEDS ORDERED: LEVALBUTEROL 1.25 MG/3 ML NEB ONE (06:59)
[2019-03-02] MEDS ORDERED: METOPROLOL TARTRATE 5 MG/5 ML INJ IV ONE (07:03)
[2019-03-02] MEDS ORDERED: NA CHLORIDE 0.9% 2,000 ML ONE (07:12)
[2019-03-02 07:16] LABS: Albumin 2.4 g/dL (3.4-5.0); Bilirubin Direct 0.4 mg/dL (0-0.2); Bilirubin Total 0.7 mg/dL (0.2-1.0); CKMB Creatine Kinase MB 1.7 ng/mL (0.3-3.6); Protein, Total 5.8 g/dL (6.4-8.2); Troponin (Emerg Dept Use Only) 0.03 ng/mL (0.0-0.045)
[2019-03-02 07:18] LABS: Potassium 2.9 mmol/L (3.5-5.1)
[2019-03-02 07:32] LABS: Anisocytosis 1+; Blood Morphology Comment NOTED (NOT SEEN); Burr Cells 1+; Platelet Estimate DECR; Platelets, Giant 1+
[2019-03-02 07:40] LABS: Urine Bacteria <20 /HPF (NONE SEEN); Urine Culture Reflex Order NOT NEEDED; Urine RBC <5 /HPF (NONE SEEN)
[2019-03-02] MEDS ORDERED: ONDANSETRON 4 MG/2 ML VIAL IV PRN (07:55)
[2019-03-02] MEDS ORDERED: MORPHINE 2 MG/ML SYR IV PRN (07:55)
[2019-03-02] MEDS ORDERED: Pharmacy Consult 1 EA XX PRN (08:00)
[2019-03-02] MEDS ORDERED: VANCOMYCIN/NS 1 gm 1 GM/250 ML BAG IV SCH (08:00)
[2019-03-02] MEDS ORDERED: METHYLPREDNISOLONE 125 MG INJ ONE (08:12)
[2019-03-02] MEDS ORDERED: CEFEPIME 1 GM/100 ML BAG IV ONE (08:12)
[2019-03-02] MEDS ORDERED: Magnesium Sulfate 2gm IVPB 2 G/50 ML BAG IV ONE ×2 (08:13→23:26)
--- NOTE | 2019-03-02 08:21 | ER ---
Nurse's Notes [facility] Name: Diego Brizuela Age: 68 yrs Sex: Male : 1950 Arrival Date: 03/02/2019 Time: 06:23 Bed 7 Private MD: Mark Sharp T Diagnosis: Dehydration;Neutropenia due to infection;Sepsis due to other specified staphylococcus;Pneumonia due to other specified bacteria;Chronic obstructive pulmonary disease with (acute) exacerbation Presentation: 03/02 06:24 Presenting complaint: EMS states: patient from home complaining of fever 101.4 F. last rr5 had a diarrhea Imodium given to patient then the diarrhea stopped. 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 CBG 126mg/dl taken. Transition of care: patient was not received from another setting of care. Onset of symptoms was March 02, 2019. Risk Assessment: Do you want to hurt yourself or someone else? Patient reports no desire to harm self or others. Initial Sepsis Screen: Does the patient meet any 2 criteria? RR > 20 per min. HR > 90 bpm. Yes Does the patient have a suspected source of infection? Yes: Acute abdominal pain If YES to both, name of provider notified: Magan Martínez MD Care prior to arrival: Medication(s) given: Normal saline infusion, 1000 mL, by EMS. 06:24 Method Of Arrival: EMS: [facility] rr5 06:24 Acuity: EDWARD 2 rr5 06:39 Note according to family member patient after his chemotherapy last February 19-2018 rr5 after that the patient had loss of appetite. yesterday he said i feel weak, I don't feel good, he could not walk and he is incoherent. Historical: - Allergies: 06:39 Levaquin; rr5 - Home Meds: 06:39 amlodipine 5 mg tab 1 tab once daily [Active]; aspirin 81 mg Oral chew 1 tab once daily rr5 [Active]; Protonix 40 mg Oral TbEC 1 tab 2 times per day [Active]; atorvastatin 80 mg Oral tab 1 tab once daily [Active]; fludrocortisone 0.1 mg Oral tab 1 tab once daily [Active]; sodium chloride 1 gram Oral tab [Active]; Zyrtec 10 mg Oral cap [Active]; Creon oral oral [Active]; ipratropium-albuterol 0.5 mg-3 mg(2.5 mg base)/3 mL Inhl nebu 3 mL 4 times per day [Active]; levetiracetam 250 mg Oral tab 1 tabs 2 times per day [Active]; metoprolol tartrate 50 mg Oral tab 1 tab 2 times per day [Active]; Vitamin D3 5,000 unit Oral tab daily [Active]; - PMHx: 06:39 Bladder CA; Hypertension; Myocardial infarction; testicular CA; lung cancer; brain rr5 cancer; COPD; - PSHx: 06:39 testicle removed; kidney removed; thoracotomy; lumph node dissection; bladder surgery; rr5 - Immunization history:: Adult Immunizations up to date. - Social history:: Smoking status: Patient uses tobacco products, 1-2 sticks per day, Patient/guardian denies using alcohol, street drugs. - Ebola Screening: : Patient negative for fever greater than or equal to 101.5 degrees Fahrenheit, and additional compatible Ebola Virus Disease symptoms Patient denies exposure to infectious person Patient denies travel to an Ebola-affected area in the 21 days before illness onset. Screenin:45 Abuse screen: Denies threats or abuse. Denies injuries from another. Nutritional rr5 screening: No deficits noted. Tuberculosis screening: No symptoms or risk factors identified. Fall Risk Secondary diagnosis (15 points) impaired mobility, IV access (20 points). Gait- Weak (10 pts.). Total Hernandez Fall Scale indicates High Risk Score (45 or more points). Fall prevention measures have been instituted. Side Rails Up X 2 Placed Close to Nursing Station Frequent Obs/Assessments Occuring Family Present and informed to notify staff if the need to leave the bedside As available patient and family educated on Fall Prevention Program and Strategies. Assessment: 06:46 General: Appears distressed, uncomfortable, ill, Behavior is cooperative, anxious, rr5 Reports fever for. Pain: Complains of pain in abdomen Pain does not radiate. Pain currently is 10 out of 10 on a pain scale. Quality of pain is described as aching, Pain began gradually, Is intermittent. Neuro: Level of Consciousness is awake, alert, obeys commands, Oriented to person, place, time, situation, Appropriate for age Reports weakness. Cardiovascular: Capillary refill < 3 seconds Patient's skin is warm and dry. Respiratory: Airway is patent Respiratory effort is labored. GI: Abdomen is flat, Reports lower abdominal pain, upper abdominal pain, Parent/caregiver reports the patient having diarrhea. : No signs and/or symptoms were reported regarding the genitourinary system. EENT: No signs and/or symptoms were reported regarding the EENT system. Derm: Skin is intact, Skin temperature is warm. Musculoskeletal: Capillary refill < 3 seconds. 06:46 Respiratory: Respiratory pattern is tachypnea audible wheezing sound. rr5 07:00 Reassessment: RECD REPORT FROM PRETTY BECKETT. 68YO WM P/W FEVER AND MALAISE, H/O MT bp CANCER, TO INCLUDE BRAIN. SEPSIS PROTOCOL INITIATED BY PREVIOUS SHIFT. 07:50 Reassessment: Dr. Carrasco at bedside to assess patient. iw 08:14 Reassessment: ABG UNREMARKABLE, PT PLACED ON ROOM AIR. bp 08:30 Reassessment: HYPOTENSION NOTED ON MONITOR, MD NOTIFIED. FLUID RESUSCITATION STARTED. bp Vital Signs: 06:20 BP 131 / 80; Pulse 145; Resp 46; Temp 98.8; Pulse Ox 68% on R/A; Weight 70.31 kg; bp Height 5 ft. 11 in. (180.34 cm); 06:45 BP 121 / 68; Pulse 144; Resp 45; Pulse Ox 100% on 2 lpm NC; rr5 06:45 Temp 103.3(R); rr5 07:13 BP 128 / 73; Pulse 137; Resp 35; Pulse Ox 100% on Nebulizer Mask; iw 07:33 BP 129 / 111; Pulse 135; Resp 31; Pulse Ox 99% on 15% Nebulizer Mask; bp 08:01 BP 148 / 128; Pulse 130; Resp 29; Temp 102.9(A); Pulse Ox 100% ; bp 08:30 BP 65 / 49; Pulse 124; Resp 27; Pulse Ox 100% on R/A; bp 09:10 BP 137 / 84; Pulse 118; Resp 27; Pulse Ox 100% ; bp 09:40 BP 115 / 82; Pulse 116; Resp 30; Pulse Ox 99% ; bp 06:20 Body Mass Index 21.62 (70.31 kg, 180.34 cm) bp ED Course: 06:20 Arm band placed on. EKG completed in triage. Results shown to MD. rr5 06:23 Patient arrived in ED. rr5 06:23 email marketing assistant on. Pulse ox on. NIBP on. rr5 06:24 Maintain EMS IV. Dressing intact. Good blood return noted. Site clean \T\ dry. Gauge \T\ rr 5 site: G20 left hand and G20 right AC. 06:27 Mark Sharp MD is Private Physician. am2 06:28 Triage completed. rr5 06:30 Initial lab(s) drawn, by ED staff, First set of blood cultures drawn. rr5 06:55 Initial Neb Treatment Given as ordered Patient was instructed and evaluated on rr5 procedure Patient tolerated procedure well without adverse effect. 07:00 Maintain EMS IV. Dressing intact. Good blood return noted. Site clean \T\ dry. Gauge \T\ bp site: 20 GAUGE R AC. 07:02 Juno Christine, SOPHY is Primary Nurse. bp 07:03 Patient has correct armband on for positive identification. Bed in low position. Call bp light in reach. Side rails up X2. Adult w/ patient. 07:05 Magan Martínez MD is Attending Physician. eb 07:10 Second set of blood cultures drawn [facility]. rr5 07:16 Notified ED physician of a critical lab result(s). WBC=0.9, Hgb=7.9, PLT=26. iw 07:17 Chest Single View XRAY In Process Unspecified. EDMS 08:19 David Marx MD is Hospitalizing Provider. ma2 09:31 No provider procedures requiring assistance completed. Patient admitted, IV remains in bp place. Administered Medications: 06:45 Drug: Acetaminophen Suppository 650 mg Route: VA; rr5 07:36 Follow up: Response: No adverse reaction bp 06:50 Drug: Lopressor 5 mg Route: IVP; Site: left hand; rr5 07:35 Follow up: Response: No adverse reaction bp 06:55 Drug: Xopenex (3) 1.25 mg Route: Inhalation; rr5 06:55 Drug: AtroVENT Aerosol 0.5 mg Route: Inhalation; rr5 07:00 Drug: NS 0.9% (30 ml/kg) 30 ml/kg Route: IV; Rate: bolus; Site: right antecubital; rr5 08:00 Follow up: IV Status: Completed infusion bp 07:50 Drug: Cefepime 1 grams Route: IVPB; Rate: 200 ml/hr; Infused Over: 30 mins; Site: left bp hand; 09:27 Follow up: IV Status: Completed infusion; IV Intake: 100ml bp 07:50 Drug: Magnesium Sulfate 2 grams Route: IVPB; Infused Over: 2 hrs; Site: right bp antecubital; 09:27 Follow up: IV Status: Completed infusion bp 07:50 Drug: MethylPrednisoLONE 125 mg Route: IVP; Site: right antecubital; bp 08:13 Follow up: Response: No adverse reaction bp 08:22 Not Given (Duplicate Order): Acetaminophen 650 mg PO once iw 08:24 Drug: Tylenol Liquid 320 mg Route: PO; iw 09:26 Follow up: Response: No adverse reaction bp 09:06 Drug: Potassium Chloride 10 mEq {Note: GIVEN 20MEQ IN 100.} Route: IV; Rate: bp calculated rate; Site: right antecubital; 09:25 Follow up: IV Status: Infusion continued upon admission bp 09:07 Drug: vancoMYCIN 1 grams Route: IVPB; Infused Over: 2 hrs; Site: left hand; bp 09:28 Follow up: IV Status: Infusion continued upon admission bp 09:07 Drug: Potassium Chloride 10 mEq Route: IV; Rate: calculated rate; Site: right bp antecubital; 09:26 Follow up: IV Status: Infusion continued upon admission bp Point of Care Testing: Blood Glucose: 06:33 Blood Glucose: 141 mg/dL; lp1 Ranges: Intake: 06:45 IV: 1000ml (IV Fluid); Total: 1000ml. lp1 09:27 IV: 100ml; Total: 1100ml. bp Outcome: 08:21 Decision to Hospitalize by Provider. ma2 09:32 Condition: stable bp 09:32 Instructed on the need for admit. 09:39 Admitted to Tele accompanied by tech, family with patient, via stretcher, room 423, bp with chart, Report called to LOYDA BECKETT 09:48 Patient left the ED. bp Signatures: Dispatcher [employer] EDMS Esthela Brooks, [employer]AT[address]HW[address] MAINTAINER-Ruth Stern RN RN iw Faby Calderón RN RN lp1 Beti Rincon Brian, RN RN bp Magan Martínez MD MD ma2 Surekha Valentino Raymond, RN RN rr5 Corrections: (The following items were deleted from the chart) 06:54 06:24 Acuity: EDWARD 3 rr5 rr5 06:54 06:45 Temp 103.3F; rr5 rr5 07:10 06:24 Initial Sepsis Screen: Does the patient meet any 2 criteria? RR > 20 per min. HR rr5 > 90 bpm. Yes Does the patient have a suspected source of infection? No. Patient's initial sepsis screen is negative. rr5 07:17 07:13 BP 128 / 73; Pulse 137bpm; Resp 35bpm; Pulse Ox 100% Non-rebreather mask; iw iw 07:33 06:20 BP 131 / 80; Pulse 145bpm; Resp 46bpm; Pulse Ox 99%; Temp 98.8F; 70.31 kg; Height bp 5 ft. 11 in.; BMI: 21.6; rr5 08:14 08:01 Temp 102.9F Axillary; iw bp
[2019-03-02] MEDS ORDERED: ACETAMINOPHEN 500 MG TAB ONE (08:22)
--- NOTE | 2019-03-02 08:22 | EDPHYS ---
Physician Documentation [facility] Name: Diego Brizuela Age: 68 yrs Sex: Male : 1950 Arrival Date: 03/02/2019 Time: 06:23 Bed 7 Private MD: Mark Sharp T ED Physician Magan Martínez HPI: 03/02 06:32 This 68 yrs old Male presents to ER via EMS with complaints of Fever, kb Diarrhea. 06:32 The patient presents with generalized weakness. Onset: The symptoms/episode kb began/occurred yesterday. Context: occurred at home, just prior to the episode the patient experienced no apparent symptoms. Modifying factors: The symptoms are alleviated by nothing, the symptoms are aggravated by nothing. Associated signs and symptoms: Pertinent positives: fever, decreased appetite, diarrhea. Severity of symptoms: At their worst the symptoms were moderate in the emergency department the symptoms are unchanged. The patient has not experienced similar symptoms in the past. The patient has not recently seen a physician. states pt has had a decreased appetite this week, started having fever intermittently three days ago, diarrhea on only, and weakness yesterday that just kept getting worse. States he normally walks on his own, but had to have help yesterday to get to the bed. This morning she called 911 to bring him here because she thought he was sick enough that he needed to come to the hospital.. 07:23 Patient's baseline: Neuro: alert and fully oriented, Motor: no deficits, Ambulation: kb walks with assist only, uses cane, uses walker, Speech: normal. Historical: - Allergies: 06:39 Levaquin; rr5 - Home Meds: 06:39 amlodipine 5 mg tab 1 tab once daily [Active]; aspirin 81 mg Oral chew 1 tab once daily rr5 [Active]; Protonix 40 mg Oral TbEC 1 tab 2 times per day [Active]; atorvastatin 80 mg Oral tab 1 tab once daily [Active]; fludrocortisone 0.1 mg Oral tab 1 tab once daily [Active]; sodium chloride 1 gram Oral tab [Active]; Zyrtec 10 mg Oral cap [Active]; Creon oral oral [Active]; ipratropium-albuterol 0.5 mg-3 mg(2.5 mg base)/3 mL Inhl nebu 3 mL 4 times per day [Active]; levetiracetam 250 mg Oral tab 1 tabs 2 times per day [Active]; metoprolol tartrate 50 mg Oral tab 1 tab 2 times per day [Active]; Vitamin D3 5,000 unit Oral tab daily [Active]; - PMHx: 06:39 Bladder CA; Hypertension; Myocardial infarction; testicular CA; lung cancer; brain rr5 cancer; COPD; - PSHx: 06:39 testicle removed; kidney removed; thoracotomy; lumph node dissection; bladder surgery; rr5 - Immunization history:: Adult Immunizations up to date. - Social history:: Smoking status: Patient uses tobacco products, 1-2 sticks per day, Patient/guardian denies using alcohol, street drugs. - Ebola Screening: : Patient negative for fever greater than or equal to 101.5 degrees Fahrenheit, and additional compatible Ebola Virus Disease symptoms Patient denies exposure to infectious person Patient denies travel to an Ebola-affected area in the 21 days before illness onset. ROS: 06:35 Eyes: Negative for injury, pain, redness, and discharge, ENT: Negative for injury, kb pain, and discharge, Neck: Negative for injury, pain, and swelling, Cardiovascular: Negative for chest pain, palpitations, and edema, Back: Negative for injury and pain, : Negative for injury, bleeding, discharge, and swelling, MS/Extremity: Negative for injury and deformity, Skin: Negative for injury, rash, and discoloration. 06:35 Constitutional: Positive for body aches, chills, fatigue, fever, malaise, poor PO intake. 06:35 Respiratory: Positive for dyspnea on exertion, shortness of breath. 06:35 Abdomen/GI: Positive for diarrhea. 06:35 Neuro: Positive for altered mental status, weakness. Exam: 07:23 Constitutional: This is a well developed, well nourished patient who is awake, alert, kb and in no acute distress. Eyes: Pupils equal round and reactive to light, extra-ocular motions intact. Lids and lashes normal. Conjunctiva and sclera are non-icteric and not injected. Cornea within normal limits. Periorbital areas with no swelling, redness, or edema. ENT: Nares patent. No nasal discharge, no septal abnormalities noted. Tympanic membranes are normal and external auditory canals are clear. Oropharynx with no redness, swelling, or masses, exudates, or evidence of obstruction, uvula midline. Mucous membranes moist. Neck: Trachea midline, no thyromegaly or masses palpated, and no cervical lymphadenopathy. Supple, full range of motion without nuchal rigidity, or vertebral point tenderness. No Meningismus. Chest/axilla: Normal chest wall appearance and motion. Nontender with no deformity. No lesions are appreciated. Skin: Warm, dry with normal turgor. Normal color with no rashes, no lesions, and no evidence of cellulitis. MS/ Extremity: Pulses equal, no cyanosis. Neurovascular intact. Full, normal range of motion. 07:23 Cardiovascular: Rate: tachycardic, Rhythm: regular, Pulses: no pulse deficits are appreciated, Heart sounds: normal, normal S1and S2. 07:23 Respiratory: moderate respiratory distress is noted, Respirations: labored breathing, that is mild, Breath sounds: wheezing: expiratory that is moderate, is heard diffusely. Vital Signs: 06:20 BP 131 / 80; Pulse 145; Resp 46; Temp 98.8; Pulse Ox 68% on R/A; Weight 70.31 kg; bp Height 5 ft. 11 in. (180.34 cm); 06:45 BP 121 / 68; Pulse 144; Resp 45; Pulse Ox 100% on 2 lpm NC; rr5 06:45 Temp 103.3(R); rr5 07:13 BP 128 / 73; Pulse 137; Resp 35; Pulse Ox 100% on Nebulizer Mask; iw 07:33 BP 129 / 111; Pulse 135; Resp 31; Pulse Ox 99% on 15% Nebulizer Mask; bp 08:01 BP 148 / 128; Pulse 130; Resp 29; Temp 102.9(A); Pulse Ox 100% ; bp 08:30 BP 65 / 49; Pulse 124; Resp 27; Pulse Ox 100% on R/A; bp 09:10 BP 137 / 84; Pulse 118; Resp 27; Pulse Ox 100% ; bp 09:40 BP 115 / 82; Pulse 116; Resp 30; Pulse Ox 99% ; bp 06:20 Body Mass Index 21.62 (70.31 kg, 180.34 cm) bp MDM: 06:29 Patient medically screened. kb 06:35 Data reviewed: vital signs, nurses notes. kb 07:34 Differential diagnosis: bacterial infection, bronchitis, pneumonia UTI, ma2 gastroenteritis, dehydration and febrile neutropenia. Counseling: I had a detailed discussion with the patient and/or guardian regarding: the historical points, exam findings, and any diagnostic results supporting the discharge/admit diagnosis, the presence of at least one elevated blood pressure reading (>120/80) during this emergency department visit, the need for further work-up and treatment in the hospital, the need to transfer to another facility. Response to treatment: There is no appreciated change of the patient's symptoms at this time. ED course: patient is tachycardic and dehydrated with sepsis, argenis tachycardia and pneumonia wheezes on exam. patient has his 1st chemotherapy 10 days, he sees dr.s zaragoza. he has febrile neutropenia, VON and sepsis with pneumonia and reactive airway disease exacerbation.. I discussed code status with patient and his , patient is aox4, he would like to pursue DNR yet would continue to be intubated and mechanically ventilated if needed, i discussed with dr. cordero who advised to discussed with dr. santana who is oncall as a hospitalist today. dr. santana advised that he will come and see this patient.. . 03/02 06:28 Order name: Basic Metabolic Panel 03/02 06:28 Order name: Blood Culture Adult (2) 03/02 06:28 Order name: CBC with Diff 03/02 06:28 Order name: Ckmb 03/02 06:28 Order name: CPK 03/02 06:28 Order name: Lactate 03/02 06:28 Order name: LFT's 03/02 06:28 Order name: Lipase 03/02 06:28 Order name: Procalcitonin 03/02 06:28 Order name: Protime (+inr); Complete Time: 07:23 kb 03/02 06:28 Order name: Ptt, Activated; Complete Time: 07:23 kb 03/02 06:28 Order name: Troponin (emerg Dept Use Only); Complete Time: 07:23 kb 03/02 06:29 Order name: Basic Metabolic Panel; Complete Time: 07:23 EDMS 03/02 06:28 Order name: Chest Single View XRAY kb 03/02 06:29 Order name: Blood Culture EDMS 03/02 06:29 Order name: CBC with Automated Diff; Complete Time: 07:34 EDMS 03/02 06:30 Order name: CKMB Creatine Kinase MB; Complete Time: 07:23 EDMS 03/02 06:30 Order name: Creatine Phosphokinase; Complete Time: 07:23 EDMS 07 06:30 Order name: Lactate; Complete Time: 07:23 EDMS 07 06:30 Order name: Liver (Hepatic) Function; Complete Time: 07:23 EDMS 03/02 06:30 Order name: Lipase; Complete Time: 07:23 EDMS 03/02 06:30 Order name: Procalcitonin; Complete Time: 07:39 EDMS 03/02 06:51 Order name: Urinalysis W/Microscopic; Complete Time: 07:55 EDMS 03/02 07:26 Order name: ABG ma2 03/02 07:32 Order name: Manual Differential; Complete Time: 07:34 EDMS 03/02 08:07 Order name: Vancomycin Peak EDMS 03/02 08:07 Order name: Clostridium difficile DNA EDMS 03/02 06:28 Order name: Accucheck; Complete Time: 06:37 kb 03/02 06:28 Order name: Cardiac monitoring; Complete Time: 06:37 kb 03/02 06:28 Order name: EKG - Nurse/Tech; Complete Time: 06:44 kb 03/02 06:28 Order name: IV Saline Lock - Large Bore; Complete Time: 06:56 kb 03/02 06:28 Order name: Labs collected and sent; Complete Time: 06:56 kb 03/02 06:28 Order name: O2 Per Protocol; Complete Time: 06:56 kb 03/02 06:28 Order name: O2 Sat Monitoring; Complete Time: 06:57 kb 03/02 06:28 Order name: Urine Dipstick-Ancillary (obtain specimen); Complete Time: 06:57 kb 03/02 08:06 Order name: CONS Pharmacy Consult EDMS 03/02 08:06 Order name: Regular EDMS 03/02 08:07 Order name: CONS Pharmacy Consult EDMS Administered Medications: 06:45 Drug: Acetaminophen Suppository 650 mg Route: AL; rr5 07:36 Follow up: Response: No adverse reaction bp 06:50 Drug: Lopressor 5 mg Route: IVP; Site: left hand; rr5 07:35 Follow up: Response: No adverse reaction bp 06:55 Drug: Xopenex (3) 1.25 mg Route: Inhalation; rr5 06:55 Drug: AtroVENT Aerosol 0.5 mg Route: Inhalation; rr5 07:00 Drug: NS 0.9% (30 ml/kg) 30 ml/kg Route: IV; Rate: bolus; Site: right antecubital; rr5 08:00 Follow up: IV Status: Completed infusion bp 07:50 Drug: Cefepime 1 grams Route: IVPB; Rate: 200 ml/hr; Infused Over: 30 mins; Site: left bp hand; 09:27 Follow up: IV Status: Completed infusion; IV Intake: 100ml bp 07:50 Drug: Magnesium Sulfate 2 grams Route: IVPB; Infused Over: 2 hrs; Site: right bp antecubital; 09:27 Follow up: IV Status: Completed infusion bp 07:50 Drug: MethylPrednisoLONE 125 mg Route: IVP; Site: right antecubital; bp 08:13 Follow up: Response: No adverse reaction bp 08:22 Not Given (Duplicate Order): Acetaminophen 650 mg PO once iw 08:24 Drug: Tylenol Liquid 320 mg Route: PO; iw 09:26 Follow up: Response: No adverse reaction bp 09:06 Drug: Potassium Chloride 10 mEq {Note: GIVEN 20MEQ IN 100.} Route: IV; Rate: bp calculated rate; Site: right antecubital; 09:25 Follow up: IV Status: Infusion continued upon admission bp 09:07 Drug: vancoMYCIN 1 grams Route: IVPB; Infused Over: 2 hrs; Site: left hand; bp 09:28 Follow up: IV Status: Infusion continued upon admission bp 09:07 Drug: Potassium Chloride 10 mEq Route: IV; Rate: calculated rate; Site: right bp antecubital; 09:26 Follow up: IV Status: Infusion continued upon admission bp Point of Care Testing: Blood Glucose: 06:33 Blood Glucose: 141 mg/dL; lp1 Ranges: Critical Glucose Levels:Adult <50 mg/dl or >400 mg/dl <40 mg/dl or >180 mg/dl Disposition: 08:18 Co-signature as Attending Physician, Magan Martínez MD. ma2 Disposition: 03/02/19 08:21 Hospitalization ordered by David Marx for Inpatient Admission. Preliminary diagnosis are Dehydration, Neutropenia due to infection, Sepsis due to other specified staphylococcus, Pneumonia due to other specified bacteria, Chronic obstructive pulmonary disease with (acute) exacerbation. - Bed requested for Telemetry/MedSurg (Inpatient). - Status is Inpatient Admission. bp - Condition is Guarded. - Problem is new. - Symptoms are unchanged. UTI on Admission? No Critical care time excluding procedures: 08:22 Critical care time: Bedside Care: 15 minutes, Consultation: 15 minutes, Family ma2 Intervention: 10 minutes. Total time: 40 minutes Signatures: Dispatcher [employer] EDMS Esthela Brooks, AUTOCUTTER-C AUTOCUTTER-CkAure Bauer, RN RN dw Ruth Barfield, RN RN iw Juno Christine RN RN bp Magan Martínez MD MD ma2 Roque, Raymond, RN RN rr5 Corrections: (The following items were deleted from the chart) 06:51 06:31 UA MICROSCOPIC+U.LAB.BRZ ordered. EDOH EDOH 07:24 06:35 Neuro: Positive for weakness, kb kb 08:54 08:21 Hospitalization Ordered by David Marx MD for Inpatient Admission. dw Preliminary diagnosis is Dehydration; Neutropenia due to infection; Sepsis due to other specified staphylococcus; Pneumonia due to other specified bacteria; Chronic obstructive pulmonary disease with (acute) exacerbation. Bed requested for Telemetry/MedSurg (Inpatient). Status is Inpatient Admission. Condition is Guarded. Problem is new. Symptoms are unchanged. UTI on Admission? No. ma2 09:48 08:54 03/02/2019 08:21 Hospitalization Ordered by David Marx MD for Inpatient bp Admission. Preliminary diagnosis is Dehydration; Neutropenia due to infection; Sepsis due to other specified staphylococcus; Pneumonia due to other specified bacteria; Chronic obstructive pulmonary disease with (acute) exacerbation. Bed requested for Telemetry/MedSurg (Inpatient). Status is Inpatient Admission. Condition is Guarded. Problem is new. Symptoms are unchanged. UTI on Admission? No. dw
[2019-03-02] MEDS ORDERED: ACETAMINOPHEN 160 MG/5 ML UCUP ONE (08:29)
[2019-03-02] MEDS ORDERED: CEFEPIME 1 GM/VIAL IV SCH (09:00)
[2019-03-02] MEDS: KCL 20 MEQ/100 mL IVPB 20 MEQ/100 ML BAG IV SCH ×3 (09:00→13:13)
[2019-03-02] MEDS: IPRATROPIUM BROM 0.5MG/2.5ML NEB SCH ×3 (09:04→20:30)
[2019-03-02] MEDS ORDERED: KCL 20 MEQ/100 mL IVPB 20 MEQ/100 ML BAG IV ONE (09:12)
[2019-03-02] MEDS: NA CHLORIDE 0.9% 1,000 ML IV SCH ×3 (10:11→21:20)
[2019-03-02 10:15] VITALS: BMI 22.4
--- NOTE | 2019-03-02 10:33 | P.HP ---
Certification for Inpatient With expected LOS: >2 Midnights Practitioner: I am a practitioner with admitting privileges, knowledge of patient current condition, hospital course, and medical plan of care. 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 according to his is condition deteriorated on started having some diarrhea became profoundly weak was unable to ambulate or get up to alert fever chills more shortness of breath brought to the emergency room in the ER is very apprehensive short of breath in significant also is febrile possible sepsis Allergies levofloxacin [From Levaquin] Allergy (Verified 12/28/18 02:08) Itching/Hives/Rash Home Medications: Cetirizine HCl [Zyrtec*] 10 mg PO DAILY 12/04/13 Vitamin B Complex [B Complex] 1 each PO DAILY 12/04/13 Atorvastatin Calcium [Lipitor] 80 mg PO BEDTIME #30 tablet 03/04/16 Pantoprazole [Protonix Tab*] 40 mg PO BID #60 tab 03/04/16 Metoprolol Tartrate [Lopressor*] 50 mg PO BID 08/26/17 Ascorbic Acid [Vitamin C*] 500 mg PO DAILY 07/08/18 Aspirin [Children's Aspirin] 81 mg PO DAILY 07/08/18 Sodium Chloride 1 gm PO DAILY 07/08/18 Amlodipine [Norvasc*] 5 mg PO DAILY 12/18/18 Cholecalciferol (Vitamin D3) [Vitamin D3] 5,000 unit PO DAILY 12/18/18 Fludrocortisone [Florinef *] 0.1 mg PO BEDTIME 12/18/18 Ipratropium/Albuterol Sulfate [Iprat-Albut 0.5-3(2.5) mg/3 ml] 3 ml IH DAILYPRN PRN 12/18/18 dexAMETHasone [Decadron*] 8 mg PO BID 14 Days #56 tab 12/21/18 levETIRAcetam [Keppra*] 250 mg PO BID #60 tab 12/21/18 Docosahexanoic AC/Epa [Fish Oil 1,000 MG*] 2 cap PO DAILY 12/28/18 - Past Medical/Surgical History Has patient received pneumonia vaccine in the past: Yes Diabetic: No -: Hyperlipidemia -: Hypertension -: Coronary artery disease, Cardiology-Dr. Cabello -: History of PA with stent placement-2011 -: History of testicular carcinoma with mets in 1992. -: History of kidney cancer requiring nephrectomy in 2000 -: History of bladder cancer in 2013, urology-Dr. Pérez -: GERD -: Chronic kidney disease, Nephrology-Dr. Hernández -: Tobacco abuse -: Alcohol abuse -: Appendectomy-1976 -: Left-sided orchiectomy-1992 -: Abdominal lymph node resection -: Bilateral tendon repair -: left renal/adrenal gland removed -: Left kidney removed -: prostate ad bladder surgery Psychosocial/ Personal History: of 32 years. Has 3 children. 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 - Family History Mother -: Heart disease, Diabetes, Stroke Father -: Hypertension, Cancer Brother -: Lung disease, Other (see notes) Notes: Lung Cancer - Social History Smoking Status: Current some day smoker Alcohol use: No CD- Drugs: No Caffeine use: Yes Place of Residence: Home Review of Systems General: Weakness Respiratory: Shortness of Breath Gastrointestinal: Nausea, Diarrhea Physical Examination - Vital Signs Temperature: 102.9 F Blood Pressure: 115/82 Pulse: 116 Respirations: 30 - Physical Exam General: Alert, Moderate distress HEENT: Atraumatic Neck: Supple Respiratory: Clear to auscultation bilaterally, Diminished Cardiovascular: No edema, Regular rate/rhythm Gastrointestinal: Normal bowel sounds, Soft and benign Musculoskeletal: No clubbing, No swelling, No contractures Integumentary: No rashes, No breakdown, No significant lesion Neurological: Other (Patient is alert oriented moving all his extremities) - Studies Laboratory Data (last 24 hrs) 03/02/19 06:30: PT 21.1 H, INR 1.83, APTT 24.1 L 03/02/19 06:30: WBC 0.9 L*, Hgb 7.9 L*, Hct 23.2 L, Plt Count 26 L* 03/02/19 06:30: Sodium 130 L, Potassium 2.9 L*, BUN 17, Creatinine 2.48 H, Glucose 108 H, Total Bilirubin 0.7, AST 16, ALT 21, Alkaline Phosphatase 61, Lipase 31 L Assessment and Plan - Problems (Diagnosis) (1) Sepsis Current Visit: Yes Status: Acute Plan: Patient is 68 years of age admitted with diarrhea fever chills shortness of breath possible sepsis patient is pancytopenic from his chemotherapy white count is 0.9 hemoglobin 7.9 thrombocytopenic temperature of a 102.9 tachycardic blood pressure stable urinalysis is negative chest x-ray abnormal new opacity in the left upper lobe presumed pneumonia continue with broad- spectrum antibiotics patient is full code home medications reviewed and reconciled Qualifiers: Sepsis type: sepsis due to unspecified organism Qualified Code(s): A41.9 - Sepsis, unspecified organism - Advance Directives Does patient have a Living Will: No Does patient have a Durable POA for Healthcare: No
[2019-03-02] MEDS: LORazepam 2 MG/ML VIAL IV PRN (11:43)
--- NOTE | 2019-03-02 11:49 | RAD REPORT ---
EXAM DESCRIPTION: RAD - Chest Single View - 03/02/2019 7:17 am CLINICAL HISTORY: DYSPNEA Chest pain. COMPARISON: Chest Single View dated 01/01/2019; Chest Single View dated 12/27/2018; Chest Single View da josé antonio 10/17/2018; Chest Single View dated 07/07/2018 FINDINGS: Portable technique limits examination quality. Poorly defined left and right mid lung opacities are present, probably representing pneumonia and kathy earing new since comparative chest radiograph. The heart is normal in size. Surgical clips are noted projecting over the upper abdomen.
[2019-03-02 12:27] LABS: Arterial Blood Carboxyhemoglob 1.1 % (0-1.5); Blood Gas Oxyhemoglobin 97.7 % (94-97); Blood O2 Saturation 99.3 % (92-98.5)
[2019-03-02] MEDS: LIPASE/PROTEASE/AMYLASE CAP PO SCH ×2 (18:00→18:57)
[2019-03-02] MEDS ORDERED: POTASSIUM 25 MEQ EFFERV TAB PO ONE (18:29)
[2019-03-02] MEDS: FLUDROCORTISONE 0.1 MG TAB PO SCH ×2 (21:00→22:31)
[2019-03-02] MEDS: PANTOPRAZOLE 40MG TABLET PO SCH ×2 (21:00→22:30)
[2019-03-02] MEDS ORDERED: HYDROCORTISONE SUC 100 MG INJ IV ONE (22:25)
[2019-03-02] MEDS: LEVALBUTEROL 1.25 MG/3 ML NEB NEB SCH (22:37)
[2019-03-02 23:05] LABS: Absolute Lymphocytes (CBC) 0.1 K/uL (0.7-4.9); Basophils % 0.2 % (0-1.3); Eosinophils % 0.2 % (0-4.4); MPV 9.6 fL (7.6-11.3); Monocytes % 8.1 % (3.3-12.3); RBC Red Blood Cell Count 2.91 M/uL (4.33-5.43)
[2019-03-02] MEDS ORDERED: SODIUM CHLORIDE 0.9% 10ML INJ IV PRN (23:11)
[2019-03-02] MEDS ORDERED: PANTOPRAZOLE 40 MG INJ IVP ONE (23:11)
[2019-03-02 23:24] LABS: Albumin 2.2 g/dL (3.4-5.0); Bilirubin Total 0.4 mg/dL (0.2-1.0); Phosphorus 4.4 mg/dL (2.5-4.9); Potassium 3.7 mmol/L (3.5-5.1); Protein, Total 5.7 g/dL (6.4-8.2)
[2019-03-02 23:26] LABS: Magnesium 1.1 mg/dL (1.8-2.4)
[2019-03-02] MEDS ORDERED: CALCIUM GLUC 10% INJ 4.65 MEQ in NA CHLORIDE 0.9% 100 ML IV ONE (23:26)
[2019-03-02 23:52] LABS: Blood Morphology Comment NOTED (NOT SEEN); Burr Cells 3+; Platelet Estimate DECR
[2019-03-03] MEDS ORDERED: Magnesium Sulfate 2gm IVPB 2 G/50 ML BAG IV ONE (01:00)
[2019-03-03] MEDS: LEVALBUTEROL 1.25 MG/3 ML NEB NEB SCH ×3 (02:00→14:00)
[2019-03-03] MEDS: IPRATROPIUM BROM 0.5MG/2.5ML NEB SCH ×3 (02:00→14:00)
[2019-03-03] MEDS ORDERED: CALCIUM GLUCONATE 1 GM IVPB 1 GM/50 ML BAG IV ONE (02:58)
[2019-03-03] MEDS: METOPROLOL TARTRATE 5 MG/5 ML INJ IV SCH ×2 (03:05→03:19)
[2019-03-03] MEDS ORDERED: HYDROCORTISONE SUC 100 MG INJ IV ONE (03:58)
[2019-03-03] MEDS: NA CHLORIDE 0.9% 1,000 ML IV SCH (04:00)
[2019-03-03] MEDS ORDERED: FENTANYL CITR 100 MCG/2 ML IV ONE ×2 (04:40→07:06)
--- NOTE | 2019-03-03 04:50 | P.PN ---
Subjective Date of Service: 03/02/19 I was called by nursing staff because patient's heart rate was elevated and oxygen saturations were low. Patient came in earlier today. Patient has a history of lung cancer with metastasis to the brain. Patient recently received chemotherapy. The patient also has had testicular cancer, bladder cancer, and renal cell carcinoma. Patient received gamma knife radiation earlier for 4 of the brain lesions. This was done a couple of months ago. Patient received chemotherapy recently. Patient has not had any further imaging to review brain metastasis. The states to me that he woke up this morning and was not making any sense. His speech was garbled and he had weakness of all 4 extremities. He was suddenly not able to walk and he was not move in his upper extremities well. He normally has another straight to get around although it is with a walker. And he normally is able to talk in complete sentences and comprehends appropriately. However, since this morning he has not been doing this. Concerned that he has developed some cerebral edema because of the brain metastasis. He has been on dexamethasone and fludrocortisone. When I came to see the patient he was very ill. He was tachypneic and tachycardic. He was on a 50% Venti mask. I spoke to the who states that he had told her in the past that he wanted to be a DNR-currently he is a full code and she will speak to her children as well. She has been to him for 30 years. He was not himself and he is hypoxic, tachypneic, and possibly encephalopathic because of his numerous medical issues currently. He also has neutropenic fever and pancytopenia. I was able to talk to the and informed her of his poor prognosis. Will repeat labs and reassess patient. We will try to aggressively hydrate him and may need to broaden his antibiotic coverage. Review of Systems is unable to be obtained Physical Examination - Vital Signs Temperature: 98 F Blood Pressure: 107/83 Pulse: 120 Respirations: 38 Pulse Ox (%): 100 - Physical Exam General: Alert, Moderate distress, Delirious Respiratory: Normal air movement, Diminished Cardiovascular: Regular rate/rhythm, Normal S1 S2, Other (tachyarrhythmia) Gastrointestinal: Normal bowel sounds, Hypoactive, Soft and benign, Non- distended, No tenderness Musculoskeletal: No clubbing, No swelling, No contractures Neurological: Cranial nerves 3-12 intact, Abnormal gait, Abnormal speech, Abnormal strength, Abnormal affect - Studies Laboratory Data (last 24 hrs) 03/02/19 06:30: PT 21.1 H, INR 1.83, APTT 24.1 L 03/02/19 06:30: WBC 0.9 L*, Hgb 7.9 L*, Hct 23.2 L, Plt Count 26 L* 03/02/19 06:30: Sodium 130 L, Potassium 2.9 L*, BUN 17, Creatinine 2.48 H, Glucose 108 H, Total Bilirubin 0.7, AST 16, ALT 21, Alkaline Phosphatase 61, Lipase 31 L Assessment & Plan - Problems (Diagnosis) (1) Sepsis with acute hypoxic respiratory failure and septic shock Current Visit: Yes Status: Acute (2) Metastatic lung cancer (metastasis from lung to other site) Current Visit: Yes Status: Acute (3) Metastasis to brain Current Visit: Yes Status: Acute (4) VON (acute kidney injury) Current Visit: Yes Status: Acute (5) Metabolic acidosis Current Visit: Yes Status: Acute (6) Respiratory alkalosis Current Visit: Yes Status: Acute (7) Chronic kidney disease Onset Date: 08/31/17 Current Visit: No Status: Chronic Qualifiers: (8) Coronary artery disease Onset Date: 08/30/17 Current Visit: No Status: Chronic Qualifiers: (9) Personal history of renal cell carcinoma Current Visit: No Status: Chronic (10) Pancytopenia Current Visit: Yes Status: Acute (11) Pneumonia Current Visit: Yes Status: Acute (12) Neutropenic fever Current Visit: Yes Status: Acute - Plan PLAN: 1. IV hydration 2. IV antibiotics 3. IV hydrocortisone 4. CT of the brain and will also try to include the chest if patient can tolerate 5. Monitor hemodynamics as patient is tachycardic 6. Patient renal insufficient and may need nephrology consultation along with renal ultrasound 7. will readdress code status as the states he should be a de NR. She is going to talk to the the children and confirm as this is what he has told her in the past. He is confused and obtunded and with his encephalopathy I did not feel that I can ask him directly as he is not able to verbally communicate with me. I believe he has had some kind of neurologic event that has occurred. Hopefully the CT of the brain will be able to tell us what is going on. However , without contrast I believe it was just rule out a bleed. He probably has significant cerebral edema which is causing his confusion. I have spoken with the and have told her that his prognosis is poor. He has gone through a lot in his life and she just wants him to be comfortable at this time. We will continue with IV antibiotics and IV hydration and will replace the repleted depleted electrolytes. We will also keep patient on DVT prophylaxis if CT of the head is negative for any bleeding Discharge Plan: Home Plan to discharge in: Greater than 2 days - Advance Directives Does patient have a Living Will: No Does patient have a Durable POA for Healthcare: No - Code Status/Comfort Care Code Status Assessed: Yes Code Status: Full Code Critical Care: Yes Time Spent Managing PTS Care (In Minutes): 55
--- NOTE | 2019-03-03 05:09 | P.PN ---
Subjective Date of Service: 03/03/19 patient's clinical status has declined. Patient has been placed on a BiPAP. CT of the head and chest were obtained. CT of the head did not reveal any bleeding. Patient does have nodules noted. Otherwise not really able to the see the extent of what is going on in the brain because it is and without contrast because of renal function. CT of the chest revealed diffuse pneumonia. Patient has pneumonia in both lungs. I spoke to the who has met with patient's son. We will proceed with DNR at this time. She does not want to see him suffer. But she does want us to continue current treatment, but she does not want him on a ventilator nor does she want any vasopressors. Patient has significant metabolic acidosis and we may need to change IV fluids. Renal function continues to decline. Renal ultrasound may be ordered in the morning. Prognosis is poor. Review of Systems is unable to be obtained Physical Examination - Vital Signs Temperature: 98 F Blood Pressure: 107/83 Pulse: 120 Respirations: 38 Pulse Ox (%): 100 - Physical Exam General: Alert, Moderate distress Respiratory: Diminished, Crackles/rales Cardiovascular: Other ( Tachycardic), Systolic murmur Gastrointestinal: Normal bowel sounds Musculoskeletal: No clubbing, No swelling - Studies Laboratory Data (last 24 hrs) 03/02/19 06:30: PT 21.1 H, INR 1.83, APTT 24.1 L 03/02/19 06:30: WBC 0.9 L*, Hgb 7.9 L*, Hct 23.2 L, Plt Count 26 L* 03/02/19 06:30: Sodium 130 L, Potassium 2.9 L*, BUN 17, Creatinine 2.48 H, Glucose 108 H, Total Bilirubin 0.7, AST 16, ALT 21, Alkaline Phosphatase 61, Lipase 31 L Assessment & Plan - Problems (Diagnosis) (1) Sepsis with acute hypoxic respiratory failure and septic shock Current Visit: Yes Status: Acute (2) Metastatic lung cancer (metastasis from lung to other site) Current Visit: Yes Status: Acute (3) Metastasis to brain Current Visit: Yes Status: Acute (4) VON (acute kidney injury) Current Visit: Yes Status: Acute (5) Metabolic acidosis Current Visit: Yes Status: Acute (6) Respiratory alkalosis Current Visit: Yes Status: Acute (7) Chronic kidney disease Onset Date: 08/31/17 Current Visit: No Status: Chronic Qualifiers: (8) Coronary artery disease Onset Date: 08/30/17 Current Visit: No Status: Chronic Qualifiers: (9) Personal history of renal cell carcinoma Current Visit: No Status: Chronic (10) Pancytopenia Current Visit: Yes Status: Acute (11) Pneumonia Current Visit: Yes Status: Acute (12) Neutropenic fever Current Visit: Yes Status: Acute (13) Multifocal pneumonia Current Visit: Yes Status: Acute (14) Gram-negative bacteremia Current Visit: Yes Status: Acute - Plan plan: 1. Proceed with DNR status 2. Continue broad-spectrum antibiotic coverage 3. Blood cultures positive for g negatives and will add Merrem and DC cefepime 4. Neuro checks q.4 hours - CT of the head was negative but patient's neurologic status is much different than was 24 hr ago. Concerning for new neurologic event that has occurred. May be better identified with MRI. However , patient's prognosis is very poor. Currently he is on BiPAP. The states he is very uncomfortable and would prefer to the where his own machine. Will continue with this at this time but patient is not doing well and unlikely to survive these events over the next 48-72 hours. - Advance Directives Does patient have a Living Will: No Does patient have a Durable POA for Healthcare: No - Code Status/Comfort Care Code Status: Do Not Resuscitate Comfort Measures: Palliative Care Critical Care: Yes Time Spent Managing PTS Care (In Minutes): 50
[2019-03-03] MEDS ORDERED: Meropenem 500 MG VIAL IV SCH ×2 (06:00)
[2019-03-03] MEDS ORDERED: Meropenem 500 MG/100 ML BAG ONE (06:13)
[2019-03-03] MEDS ORDERED: KCL 20 MEQ/100 mL IVPB 20 MEQ/100 ML BAG IV SCH (06:30)
[2019-03-03 07:12] LABS: Albumin 1.9 g/dL (3.4-5.0); Bilirubin Total 0.7 mg/dL (0.2-1.0); Potassium 4.2 mmol/L (3.5-5.1); Protein, Total 5.1 g/dL (6.4-8.2)
[2019-03-03 07:32] LABS: Absolute Lymphocytes (CBC) 0.3 K/uL (0.7-4.9); Eosinophils % 0.9 % (0-4.4); Hematocrit 25.6 % (39.6-49.0); Monocytes % 6.9 % (3.3-12.3); RBC Red Blood Cell Count 2.76 M/uL (4.33-5.43)
[2019-03-03 07:38] LABS: MPV 10.8 fL (7.6-11.3)
[2019-03-03] MEDS: LIPASE/PROTEASE/AMYLASE CAP PO SCH ×3 (08:00→16:53)
[2019-03-03] MEDS ORDERED: TBO-FILGRASTIM 480 MCG/0.8 ML SYR SQ SCH (08:00)
[2019-03-03] MEDS ORDERED: ALBUMIN HUMAN 25% 100 ML IV ONE (08:19)
--- NOTE | 2019-03-03 08:45 | EKG ---
Test Date: 2019-03-02 Test Time: 06:37:10 Flat Grinder Operator: DANIEL MEASUREMENT RESULTS: Intervals: Rate: 142 NH: QRSD: 66 QT: 342 QTc: 526 [place]: P: NH: QRS: 83 T: 90 INTERPRETIVE STATEMENTS: Supraventricular tachycardia Septal infarct, age undetermined ST & T wave abnormality, consider inferior ischemia Abnormal ECG Compared to ECG 12/27/2018 18:55:26 Myocardial infarct finding now present ST (T wave) deviation now present Possible ischemia now present Sinus bradycardia no longer present Electronically Signed On 03-03-19 08:42:37 CDT by Delvis Canas
[2019-03-03] MEDS ORDERED: CEFEPIME/SWI 1gm 10 ML IV SCH (09:00)
[2019-03-03] MEDS: SODIUM CHLORIDE 1 GM TAB PO SCH (09:00)
[2019-03-03] MEDS: PANTOPRAZOLE 40 MG INJ IVP SCH ×2 (10:00→20:45)
[2019-03-03] MEDS: HYDROCORTISONE SUC 100 MG INJ IV SCH ×2 (10:00→20:45)
[2019-03-03] MEDS: D5W 1,000 ML with NA BICARB 8.4% 100 MEQ IV SCH ×4 (10:02→23:40)
[2019-03-03 11:26] LABS: Magnesium 2.4 mg/dL (1.8-2.4); Phosphorus 4.6 mg/dL (2.5-4.9)
[2019-03-03 12:18] LABS: Absolute Lymphocytes (CBC) 0.1 K/uL (0.7-4.9)
[2019-03-03 12:25] LABS: Basophils % 0.2 % (0-1.3); Hematocrit 23.9 % (39.6-49.0); Lymphocytes % 6.6 % (15.3-44.8); MPV 10.4 fL (7.6-11.3); Monocytes % 3.8 % (3.3-12.3); RBC Red Blood Cell Count 2.65 M/uL (4.33-5.43)
[2019-03-03] MEDS: Meropenem 500 MG in NA CHLORIDE 0.9% 100 ML IV SCH (17:27)
[2019-03-03] MEDS ORDERED: NA CHLORIDE 0.9% 500 ML IV ONE (20:12)
[2019-03-03] MEDS: FLUDROCORTISONE 0.1 MG TAB PO SCH (21:00)
[2019-03-03] MEDS: VANCOMYCIN 1.25 GM in NA CHLORIDE 0.9% 250 ML IVPB SCH (21:32)
[2019-03-04] MEDS: D5W 1,000 ML with NA BICARB 8.4% 100 MEQ IV SCH ×4 (01:42→14:20)
[2019-03-04 05:10] LABS: Absolute Lymphocytes (CBC) 0.1 K/uL (0.7-4.9); Lymphocytes % 2.3 % (15.3-44.8); MPV 9.6 fL (7.6-11.3); Monocytes % 2.3 % (3.3-12.3); RBC Red Blood Cell Count 2.17 M/uL (4.33-5.43)
[2019-03-04 05:13] LABS: Hematocrit 19.8 % (39.6-49.0)
[2019-03-04 05:47] LABS: Albumin 1.8 g/dL (3.4-5.0); Bilirubin Total 0.5 mg/dL (0.2-1.0); Potassium 3.6 mmol/L (3.5-5.1); Protein, Total 4.8 g/dL (6.4-8.2)
[2019-03-04] MEDS ORDERED: CALCIUM GLUC 10% INJ 4.65 MEQ in NA CHLORIDE 0.9% 100 ML IV ONE (06:06)
[2019-03-04] MEDS: Meropenem 500 MG in NA CHLORIDE 0.9% 100 ML IV SCH ×2 (06:08→17:55)
[2019-03-04] MEDS: FENTANYL CITR 100 MCG/2 ML IV PRN ×2 (06:09→20:50)
[2019-03-04 06:38] LABS: Hematocrit 21.1 % (39.6-49.0)
[2019-03-04] MEDS: LIPASE/PROTEASE/AMYLASE CAP PO SCH ×3 (08:00→17:00)
[2019-03-04] MEDS: SODIUM CHLORIDE 1 GM TAB PO SCH (09:00)
[2019-03-04] MEDS ORDERED: KCL 20 MEQ/100 mL IVPB 20 MEQ/100 ML BAG IV SCH (09:30)
[2019-03-04] MEDS: HYDROCORTISONE SUC 100 MG INJ IV SCH ×2 (09:47→20:49)
[2019-03-04] MEDS: PANTOPRAZOLE 40 MG INJ IVP SCH ×2 (09:48→20:49)
--- NOTE | 2019-03-04 10:26 | RAD REPORT ---
EXAM DESCRIPTION: CT - Head Brain Wo Cont - 03/03/2019 11:33 pm CLINICAL HISTORY: Brain mets COMPARISON: None Available. TECHNIQUE: Multiple helical axial tomographic images were obtained of the head without intravenous c ontrast. Coronal and sagittal reformatted images were obtained. This exam was performed according to our departmental dose-optimization program, which includes automated exposure control, adjustment of the mA and/or kV according to patient size and/or use of iterative reconstruction technique. FINDINGS: Generalized brain volume loss is demonstrated. There is no acute intracranial hemorrhage. No large mass. No midline shift. No ventriculomegaly. Comer-white matter differentiation is maintained . Slight increased density in the right basal ganglia is demonstrated suggestive of mineralization. T here is slight low-attenuation in the periventricular white matter suggestive of chronic microvascula r ischemic changes. There is a small, subtle focal hypodense region in the cortical/subcortical left frontal lobe (series 201, image 24). Paranasal sinuses are clear. Mastoid air cells and middle ear spaces are clear. Orbits and orbital co ntents are unremarkable. Osseous structures are unremarkable. Surrounding soft tissues are unremarkable. IMPRESSION: 1. No evidence of an acute intracranial hemorrhage or large territorial type infarct. 2. Small hypodense area in the left frontal lobe cortical/subcortical region which could be related t o encephalomalacia, however small parenchymal lesion would be difficult to exclude. Follow-up with co ntrast-enhanced CT or MRI can be obtained as appropriate. Electronically signed by: Ty Carrington MD 03/03/2019 3:54 AM CDT Due to temporary technical issues with the PACS/Fluency reporting system, reports are being signed by the in house radiologist as a courtesy to ensure prompt reporting. The interpreting radiologist is f ully responsible for the content of the report.
--- NOTE | 2019-03-04 10:26 | RAD REPORT ---
EXAM DESCRIPTION: RAD - Chest Single View - 03/02/2019 9:21 pm CLINICAL HISTORY: 68 years Male shortness of breath, desats COMPARISON: Prior study performed on the same day. TECHNIQUE: AP view of the chest was obtained. FINDINGS: Cardiac size is within normal limits. Central vessels are indistinct. Ill-defined nodular airspace opacity right lung base. Patchy airspace opacity left perihilar and infr ahilar regions. These findings are increased when correlated with the prior study. No effusions bilaterally. No pneumothorax. IMPRESSION: Abnormal airspace opacities right lung base as well as left perihilar and infrahilar reg ions increased when correlated with the prior study. Inflammatory process versus developing pulmonary edema should be excluded. Underlying lung parenchymal lesion on the left not excluded.. Electronically signed by: Pili Herrera MD 03/02/2019 9:44 PM CDT Due to temporary technical issues with the PACS/Fluency reporting system, reports are being signed by the in house radiologist as a courtesy to ensure prompt reporting. The interpreting radiologist is f ully responsible for the content of the report.
--- NOTE | 2019-03-04 12:04 | RAD REPORT ---
EXAM DESCRIPTION: CT - Thorax Antoine Francis - 03/03/2019 11:32 pm CLINICAL HISTORY: The patient is 68 years old and is Male; lung ca w/ brain mets TECHNIQUE: Axial computed tomography images of the chest without intravenous contrast. Sagittal an d coronal reformatted images were created and reviewed. This CT exam was performed using one or mor e of the following dose reduction techniques: automated exposure control, adjustment of the mA and/ or kV according to patient size, and/or use of iterative reconstruction technique. COMPARISON: CT of the chest December 27, 2018. FINDINGS: LUNGS: The lungs are hyperinflated with extensive bilateral centrilobular emphysematous changes. Consolidation with air bronchograms has developed within the left upper lobe. Scattered area s of consolidation within the right upper and bilateral lower lobe is also noted. 1 cm left lower lob e pulmonary nodule is present and stable. The right hilar mass is redemonstrated measures approximate ly 3.0 x 3.6 cm, slightly increased from prior exam. The pleural-based mass within the right lower lo be is redemonstrated and grossly stable. The satellite nodules are not as easily seen secondary to th e developed areas of consolidation. There has been development of a second nodule within the left low er lobe now measuring 1.2 cm. PLEURAL SPACE: Small bilateral pleural effusions are present. No pneumothorax. HEART: No cardiomegaly. No pericardial effusion. BONES/JOINTS: No acute fracture. SOFT TISSUES: The soft tissues are normal. VASCULATURE: Unremarkable. No thoracic aortic aneurysm. LYMPH NODES: Unremarkable. No enlarged lymph nodes. IMPRESSION: 1. Slight increase in size of the known right hilar mass with development of a new foc us within the left lower lobe. The remainder of the nodules/masses are stable. 2. Interval development of multilobar consolidation. Electronically signed by: Bri Valdez MD 03/03/2019 3:52 AM CDT Due to temporary technical issues with the PACS/Fluency reporting system, reports are being signed by the in house radiologist as a courtesy to ensure prompt reporting. The interpreting radiologist is f ully responsible for the content of the report.
[2019-03-04] MEDS ORDERED: NA CHLORIDE 0.9% 500 ML ONE (12:15)
[2019-03-04] MEDS ORDERED: LORazepam 2 MG/ML VIAL IV ONE (12:20)
--- NOTE | 2019-03-04 13:05 | P.PN ---
Date of Service: 03/04/19 Called by primary nurse regarding pts BP systolic 68. Patient seems to have deteriorated more since this am when I rounded. Pt has agonal breathing, currently on venti mask. Patient is DNR. Family including does not want the patient to be on ventilator or be resuscitated. They chose [facility] hospice and wishes to keep him comfortable. I explained to her that patient will likely in the next few hours. She voiced understanding. Wants to make him care and comfort measures only. Nurse Willard at bedside
[2019-03-04] MEDS: FLUDROCORTISONE 0.1 MG TAB PO SCH (20:49)
[2019-03-04] MEDS: LORazepam 2 MG/ML VIAL IV PRN (20:50)
--- NOTE | 2019-03-04 21:55 | PN ---
Date of Progress Note: 03/04/2019 Subjective: The patient seen and examined. Chart reviewed and case discussed with RN. Family at e bedside. Treatment plan explained. All questions answered. The patient's family requesting [facility] care, chose [facility]. They understand that the patient's condition has deteriorated. The patient was in moderate distress. The patient having agonal breathing, also complaining of needing to pee, had u rinary retention, and Kendall catheter was placed. Medications: List reviewed. Code Status: Do not resuscitate. Physical Examination: Vital Signs: Temperature 97.6, heart rate 117, blood pressure 114/65, respirations 20, O2 98% on 15 L non-rebreather. General: Asleep, but arousable, not oriented, confused, ill-appearing older than stated age male. CV: S1, S2. Sinus tachycardia. Peripheral pulses weak. Respiratory: Diminished breath sounds. No wheezing. The patient is tachypneic with agonal breathin g. Gastrointestinal: Abdomen is soft, nontender, mildly distended. Extremities: No clubbing, cyanosis, edema. Neurologic: Nonfocal. Laboratory Data: Sodium 137, potassium 3.6, chloride 104, CO2 21, BUN 39, creatinine 4.05, glucose 1 64, calcium 6.4, AST 80, ALT 53, albumin 1.8. WBC 3.1; H and H 6.8 and 19.8, repeat H and H is 7.3 a nd 21.1; platelets 16, neutrophils 95%, absolute neutrophil count 2.9. Assessment And Plan: A 68-year-old male with: 1.Acute respiratory distress with hypoxia, currently on non-rebreather secondary to cancer of the iraida ng. The patient has terminal cancer. 2.Sepsis. Blood cultures are pending. We will continue with broad-spectrum IV antibiotics. The pranav gonzales has neutropenic fever. His white blood cell count was low, improving today. 3.Neutropenic fever. The patient recently had chemotherapy. 4.Hypocalcemia. 5.Elevated liver enzymes. 6.Thrombocytopenia, severe. 7.Normocytic normochromic anemia. 8.Acute on chronic kidney injury. Creatinine is worsening at 4. 9.Hypotension. The patient received bolus this morning. 10.Coronary artery disease, eek artery and eek heart status post stent without angina. 11.Gastroesophageal reflux disease, stable without esophagitis. 12.Nicotine dependence. 13.Lung cancer, end stage. 14.Brain cancer due to metastases and history of renal cancer. Overall, poor prognosis. We will se t up inpatient hospice. The patient's family currently wants him to be under care and comfort, did n ot expect the patient to survive the night. Very poor prognosis. Family understands. STANLEY Voice ID: [id number] Report ID: [id number]
[2019-03-05] MEDS: Meropenem 500 MG in NA CHLORIDE 0.9% 100 ML IV SCH (04:50)
[2019-03-05] MEDS: LIPASE/PROTEASE/AMYLASE CAP PO SCH ×2 (08:00→11:38)
[2019-03-05] MEDS: HYDROCORTISONE SUC 100 MG INJ IV SCH (09:00)
[2019-03-05] MEDS: VANCOMYCIN 1.25 GM in NA CHLORIDE 0.9% 250 ML IVPB SCH (09:00)
[2019-03-05] MEDS: SODIUM CHLORIDE 1 GM TAB PO SCH (09:00)
[2019-03-05] MEDS: PANTOPRAZOLE 40 MG INJ IVP SCH (09:00)
[2019-03-05] MEDS ORDERED: ACETAMINOPHEN 650MG/RECT SUPP PR PRN (09:39)
[2019-03-05 09:51] VITALS: O2SAT 91
[2019-03-05 14:57] VITALS: BP 96/55; TEMP 101.3
--- NOTE | 2019-03-06 02:16 | DS ---
Date of Discharge: 03/05/2019 Discharge Diagnoses: 1. Sepsis secondary to pneumonia. 2. Pneumonia. 3. History of metastatic lung cancer spread to the brain. 4. Neutropenic fever. 5. Hypocalcemia. 6. Elevated liver enzymes. 7. Severe thrombocytopenia. 8. Normocytic normochromic anemia. 9. Acute on chronic kidney injury. 10. Acute hypotension. 11. Coronary artery disease, cheesh-na artery, cheesh-na heart, status post stent. 12. Nicotine dependence. 13. GERD without esophagitis. 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 The patient was found to be septic, had upper lobe pneumonia on the left side. He was started on broad- spectrum IV antibiotics. He did have chemotherapy-induced thrombocytopenia. He was neutropenic. The patient's blood cultures were obtained, which grew out Pseudomonas. The patient did not improve. He did have acute alteration in his mental status. Head CT scan was done, which showed no hemorrhage, did show hyperdense area in the left frontal lobe, cortical, subcortical region, which could be related to encephalomalacia. Due to his worsening condition and comorbidities, family wished for the patient to become do not resuscitate and transition to hospice care. The patient was made care and comfort. He did have agonal breathing. He also required Kendall catheter placement due to urinary obstruction. The patient was then transitioned to hospice care under [facility] and care and comfort measures were initiated. Physical Examination: General: Asleep, arousable. Does not appear to be in acute distress. CV: S1, S2. Respiratory: Diminished breath sounds. No wheezing. Gastrointestinal: Abdomen is soft, nondistended. Positive bowel sounds. Extremities: No clubbing, cyanosis. The patient has diffuse peripheral edema, upper and lower extremities. Neuro: Unable to follow commands. Opens eyes to sternal rub. Total time spent discharging the patient was 32 minutes. STANLEY Voice ID: [id number] Report ID: [id number] LEDY
== END 2019-03-05 13:20 | disposition hospice, inpatient (51) | DRG 871 ==
LOC: ER 06:21 → SUPCPDRO 06:21 → ERHOLD 08:28 → 4TH 09:40
PROVIDERS: ADMIT Internal Medicine Sleep Medicine; ATTEND Internal Medicine
DX: A41.52 Sepsis due to Pseudomonas (principal); D61.810 Antineoplastic chemotherapy induced pancytopenia; R65.21 Severe sepsis with septic shock; J96.01 Acute respiratory failure with hypoxia; J18.1 Lobar pneumonia, unspecified organism; C34.90 Malignant neoplasm of unspecified part of unspecified bronchus or lung; C79.31 Secondary malignant neoplasm of brain; N17.9 Acute kidney failure, unspecified; E87.4 Mixed disorder of acid-base balance; Z51.5 Encounter for palliative care; Z66 Do not resuscitate; T45.1X5A Adverse effect of antineoplastic and immunosuppressive drugs, initial encounter; F17.210 Nicotine dependence, cigarettes, uncomplicated; I12.9 Hypertensive chronic kidney disease with stage 1 through stage 4 chronic kidney disease, or unspecified chronic kidney disease; N18.9 Chronic kidney disease, unspecified; D70.9 Neutropenia, unspecified; R50.81 Fever presenting with conditions classified elsewhere; E83.51 Hypocalcemia; E78.5 Hyperlipidemia, unspecified; I25.10 Atherosclerotic heart disease of native coronary artery without angina pectoris; K21.9 Gastro-esophageal reflux disease without esophagitis; I25.2 Old myocardial infarction; Z79.82 Long term (current) use of aspirin; Z85.528 Personal history of other malignant neoplasm of kidney; Z85.47 Personal history of malignant neoplasm of testis; Z85.51 Personal history of malignant neoplasm of bladder; Z95.5 Presence of coronary angioplasty implant and graft; Z90.79 Acquired absence of other genital organ(s); Z90.5 Acquired absence of kidney
CPT/HCPCS: 36415; 70450; 71045; 71250; 80048; 80053; 80076; 80202; 81001; 82533; 82550; 82553; 82805; 82962; 83605; 83690; 83735; 84100; 84132; 84145; 84484; 85014; 85018; 85025; 85610; 85730; 87040; 87077; 87186; 87205; 87493; 93005; 94640; 94660; 94760; 99285; C9113; J0610; J0692; J1446; J1720; J2185; J2270; J2930; J3010; J3370; J3475; J7030; P9047

== ENCOUNTER 2019-03-05 13:21 | Inpatient (IN) | payer MEDICARE, OTHER ==
[2019-03-05] MEDS ORDERED: HYDROMORPHONE HCL 2 MG/ML inj IV PRN (13:39)
[2019-03-05] MEDS ORDERED: ONDANSETRON 4 MG/2 ML VIAL IV PRN ×2 (13:42→14:20)
[2019-03-05] MEDS ORDERED: LORazepam 2 MG/ML VIAL IV PRN (13:42)
[2019-03-05] MEDS ORDERED: SCOPOLAMINE HYDROBROMIDE PATCH TD SCH (14:00)
[2019-03-05 17:04] VITALS: BMI 22.4
--- NOTE | 2019-03-07 21:07 | P.SSS ---
Patient History Date of Service: 03/07/19 Reason for admission: HOSPICE FOR END STAGE LUNG CANCER History of Present Illness: MR. DANGELO IS END STAGE LUNG CANCER PATIENT. HOSPICE WAS CALLED IN. I CAME TO SEE HIM TWO DAYS BEFORE NEO NURSE TOLD ME THAT HE SILL PASS WITHIN AN HOUR SO I ASKED TO CANCEL HOSPICE BUT LATER NEXT DAY DR. THAPA ASKED ME IF IS SAW HIM. HE LIVED ONE MORE DAY, I SAW HIM AND WITHOUT DOING ANYTHING EXTRA HE PASSED WITHIN AN HOUR OR SO. HE WAS COMATOSE AND IN AGONAL BREATHING WHEN I SAW HIM AND TALKD TO FAMILY. Allergies levofloxacin [From Levaquin] Allergy (Verified 12/28/18 02:08) Itching/Hives/Rash Home Medications: Cetirizine HCl [Zyrtec*] 10 mg PO DAILY 12/04/13 Vitamin B Complex [B Complex] 1 each PO DAILY 12/04/13 Atorvastatin Calcium [Lipitor] 80 mg PO BEDTIME #30 tablet 03/04/16 Pantoprazole [Protonix Tab*] 40 mg PO BID #60 tab 03/04/16 Metoprolol Tartrate [Lopressor*] 50 mg PO BID 08/26/17 Ascorbic Acid [Vitamin C*] 500 mg PO DAILY 07/08/18 Aspirin [Children's Aspirin] 81 mg PO DAILY 07/08/18 Amlodipine [Norvasc*] 5 mg PO DAILY 12/18/18 Cholecalciferol (Vitamin D3) [Vitamin D3] 5,000 unit PO DAILY 12/18/18 Fludrocortisone [Florinef *] 0.1 mg PO BEDTIME 12/18/18 Ipratropium/Albuterol Sulfate [Iprat-Albut 0.5-3(2.5) mg/3 ml] 3 ml IH DAILYPRN PRN 12/18/18 Docosahexanoic AC/Epa [Fish Oil 1,000 MG*] 2 cap PO DAILY 12/28/18 Lipase/Protease/Amylase [Jon Cannon 12,000 Units Capsule] 24,000 unit PO TIDWM 02/13 Ondansetron [Zofran (Odt)*] 1 tab PO Q6H PRN 03/02/19 Sodium Chloride 1 tab PO DAILY 03/02/19 - Past Medical/Surgical History Diabetic: No -: Hyperlipidemia -: Hypertension -: Coronary artery disease, Cardiology-Dr. Cabello -: History of DE with stent placement-2011 -: History of testicular carcinoma with mets in 1992. -: History of kidney cancer requiring nephrectomy in 2000 -: History of bladder cancer in 2013, urology-Dr. Pérez -: GERD -: Chronic kidney disease, Nephrology-Dr. Hernández -: Tobacco abuse -: Alcohol abuse -: Appendectomy-1976 -: Left-sided orchiectomy-1992 -: Abdominal lymph node resection -: Bilateral tendon repair -: left renal/adrenal gland removed -: Left kidney removed -: prostate ad bladder surgery Psychosocial/ Personal History: of 34 years. Has 3 children. 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 - Disposition Disposition:
== END 2019-03-05 15:45 | disposition expired | DRG 181 ==
LOC: 4TH 13:21
PROVIDERS: ADMIT Internal Medicine; ATTEND Internal Medicine
DX: C34.90 Malignant neoplasm of unspecified part of unspecified bronchus or lung (principal); C79.31 Secondary malignant neoplasm of brain; Z51.5 Encounter for palliative care
CPT/HCPCS: J1170